=== PATIENT | female | born 1985 | race Caucasian/White ===

== ENCOUNTER 2018-05-18 09:27 | Emergency (ER) | payer OTHER, SELFPAY ==
[2018-05-18 09:29] VITALS: BP 165/112; PULSE 99; RESP 18; TEMP 36.2; O2SAT 100; BMI 33.5
--- NOTE | 2018-05-18 09:50 | RAD_ITS ---
STUDY: X-RAY CHEST REASON FOR EXAM: Female, 32 years old. Chest pain. TECHNIQUE: 1 view COMPARISON: Prior chest radiograph of August 24, 2005 FINDINGS: The lungs are clear and expanded. There is no demonstrated pleural abnormality. Normal size heart. Normal mediastinum and marli. Normal visualized pulmonary arteries. Normal visualized aortic arch and descending thoracic aorta. Normal visualized thoracic spine. Normal visualized ribs, clavicles, and shoulders. There is no demonstrated abnormality of the visualized soft tissue structures of the upper abdomen. RAD/Chest 1 View (Portable) IMPRESSION: Normal x-ray examination of the chest. Electronically Signed: Aparna Zapata MD at 16:34 EDT , Service support ,
--- NOTE | 2018-05-18 09:51 | EKG12_ITS ---
Test Reason : BACK PAIN Blood Pressure : / mmHG Vent. Rate : 095 BPM Atrial Rate : 095 BPM P-R Int : 148 ms QRS Dur : 084 ms QT Int : 354 ms P-R-T Axes : 047 025 031 degrees QTc Int : 444 ms Normal sinus rhythm Low voltage QRS (limb leads) Confirmed by KARLA BUCHANAN, MANUEL ([id number]), publication editor SHANNAN DUVAL ([id number]) on 05/20/2018 1:22:45 PM Referred By: HELGA Confirmed By:MANUEL ACOSTA MD
--- NOTE | 2018-05-18 09:56 | ED.DCSUM_ITS ---
- ER Visit Summary Date of Service: 05/18/18 Chief Complaint: Upper back pain History of Present Illness: The patient is a [address] Keane. She reports that she has had episodes of left upper back pain for approximately 2 years ago. States that she had gone to physical therapy and had done quite well until approximately 2 months ago when she began having problems again. She reports the pain became much worse yesterday. It is a sharp pain just medial to her left scapula that is 10 out of 10 severity at worst an 8 out of 10 currently. States the pain radiates up into her neck and into her chest. It is worsened by putting pressure on the area. Leaning backward laying down. Is also worsened by deep breaths. She is taking naproxen and Flexeril without relief. She denies any numbness or weakness. She has no pain with movement of her shoulder. She denies any recent trauma. No fall, MVA, or change in activity. Physical Examination: Vitals: Stable. Afebrile. General: Well-nourished and well-developed. Head: Normocephalic atraumatic. Neck: Supple, no lymphadenopathy. No JVD. Nontender. Cardiovascular: Regular rate and rhythm. No murmurs. Respiratory: No respiratory distress. Clear to auscultation bilaterally. Abdominal: Soft, nontender, nondistended, normal bowel sounds. No guarding, rebound, or peritoneal signs. Back: No vertebral tenderness. Moderate tenderness palpation to the rhomboid muscles on the left.. Extremities: Nontender, no edema. Skin: Normal color, no rash. Neurologic: Alert and oriented ?3. Cranial nerves II through XII are intact. Normal strength and sensation. Psych: Normal affect. Test Results: EKG is sinus at [address] changes. CBC is more for a white count of 4.2, H&H of 11.2 and 35.3. Chem-7 is normal. Troponin is negative. D-dimer is negative. Parents test is negative. Chest x-ray shows no acute disease. Emergency Department Course and Treatment: Patient had an IV placed. She was given morphine, Toradol, and Zofran IV. She is resting comfortably. Treatment Plan: An OAR[facility] report was obtained which was negative. Patient will be discharged with naproxen, [place], and Flexeril. Instructed to follow-up her primary care physician in 3-5 days if not improving. Return to the emergency department for any worsening symptoms. Disposition: To home in improved and stable condition. Impression: 1. Upper back pain. 2. Atypical chest pain. This note was generated with [employer] dictation software. It may contain incorrect words, spelling, and punctuation that were not noted in review of the chart prior to signing ED Disposition - Plan for ED Patient: Chief Complaint: Back Instructions: ED Neck Back Pain General Prescriptions: Hydrocodone Bitart/Apap 5-325 [[place] 5MG-325MG] 1 tablet PO Q4H PRN PRN 2 Days #10 tablet PRN Reason: Pain Naproxen [Naprosyn] 500 mg PO BID #14 tablet Cyclobenzaprine [Flexeril] 10 mg PO TID PRN #20 tablet PRN Reason: Muscle Spasm Referrals: Chicho Keane MD [Primary Care Provider] - 3-5 Days if not improving
[2018-05-18] MEDS: Morphine 4 MG/ML Syringe IV (10:11)
[2018-05-18] MEDS: 0.9% Normal Saline 1,000 ML 1000 ML IV (10:11)
[2018-05-18] MEDS: Ondansetron 4 MG/2 ML Vial IV (10:11)
[2018-05-18] MEDS: Ketorolac 30 MG/ML Syringe IV (10:11)
[2018-05-18 10:14] VITALS: BP 146/100; PULSE 94; RESP 18; O2SAT 97
[2018-05-18 10:23] LABS: Absolute Lymphocyte Count 1.41 X10^3/ul (0.83-4.51); Absolute Neutrophil Count 2.3 X10^3/uL (2.0-7.7); Basophil# 0.04 X10^3/uL; Basophil% 0.9 % (0-1); Eosinophil# 0.13 X10^3/uL; Eosinophils% 3.1 % (0-5); Hematocrit 35.3 % (37-47); Hemoglobin 11.2 g/dl (12.0-15.0); Lymphocyte # 1.41 X10^3/ul (4.0); Lymphocyte % 33.3 % (19-41); Mean Corp Hgb Conc 31.7 g/gl (32-36); Mean Corpuscular Volume 78.8 fL (81-99); Mean Platelet Vol. 9.2 fl (6.2-12.0); Monocyte# 0.34 X10^3/uL; Neutrophil % 54.5 % (47-70); Platelet Count 271 K/mm3 (150-450); RBC Distribution Width CV 15.8 % (11.6-14.6); RBC Distribution Width SD 44.6 fl (35.1-43.9); Red Blood Count 4.48 M/mm3 (4.2-5.4); White Blood Count 4.2 K/mm3 (4.4-11.0)
[2018-05-18 10:24] LABS: POSITIVE COUNT NO; POSITIVE DIFFERENTIAL NO; POSITIVE MORPHOLOGY NO
[2018-05-18 10:34] LABS: D-Dimer Quantitative (DVT/PE) < 0.27 FEU/ug/m (0.27-0.49)
[2018-05-18 10:43] LABS: Anion Gap 10 (5-15); BUN 13 mg/dL (7-18); BUN/Creat Ratio 14.6 RATIO (10-20); Calcium,Total 8.5 mg/dL (8.5-10.1); Chloride 106 mmol/L (98-107); Creatinine, Serum 0.89 mg/dL (0.55-1.02); EST Glomerular Filtration Rate 77 mL/min (>60); Est Glom Filt Rate - Afr Amer 93 mL/min (>60); Estimated Creatinine Clearance 76.91 ml/min; Glucose 98 mg/dL (74-106); Potassium 3.9 mmol/L (3.5-5.1); Sodium Level 141 mmol/L (136-145)
[2018-05-18 10:46] LABS: Pregnancy, Serum, hCG Quali. NEGATIVE Negative (0-9 Nonpreg)
[2018-05-18 11:08] VITALS: BP 148/97; PULSE 87; RESP 18; O2SAT 99
== END 2018-05-18 11:10 | disposition home or self-care (01) ==
LOC: ED 09:57
PROVIDERS: Emergency Provider Emergency Medicine; Family Provider Family Medicine; PCP Family Medicine
DX: M54.9 Dorsalgia, unspecified (principal); R07.89 Other chest pain; E28.2 Polycystic ovarian syndrome; Z87.442 Personal history of urinary calculi
CPT/HCPCS: 71045; 80048; 84484; 84703; 85025; 85379; 93005; 96361; 96374; 96375; 99284; J7030; A4216; J2405

== ENCOUNTER → 2018-05-31 17:53 | Outpatient (CLI) | payer OTHER, SELFPAY ==
--- NOTE | 2018-05-31 18:15 | MRI_ITS ---
STUDY: MRI CERVICAL SPINE WITHOUT CONTRAST REASON FOR EXAM: Female, 32 years old. Left shoulder and arm pain TECHNIQUE: Standardized fat and water weighted pulse sequences were obtained in the sagittal and axial planes. COMPARISON: None FINDINGS: There is no tonsillar ectopia. This a normal cervicomedullary junction. The cervical spinal cord is of normal morphology (except at the C6-C7 level) and signal intensity with no myelomalacia or contusion. The cervical spine itself shows normal alignment and curvature with no acute fractures or dislocations and no abnormal marrow infiltrative processes. There is a normal craniovertebral junction and an intact tectorial membrane. C2-3: Normal endplates. Normal disc height, signal and morphology. Normal central canal and intervertebral neural foramina. C3-4: Normal endplates. Normal disc height, signal and morphology. Normal central canal and intervertebral neural foramina. C4-5: Normal endplates. Normal disc height, signal and morphology. Normal central canal and intervertebral neural foramina. C5-6: Normal endplates. Normal disc height, signal and morphology. Normal central canal and intervertebral neural foramina. C6-7: There is a large 7.7 x 4.7 mm left paracentral disc extrusion with an impressive impingement on the left anterior funiculus of the cord and subsequent narrowing of the left intervertebral foramen with compression on the exiting left C7 nerve root.. C7-T1: Normal endplates. Normal disc height, signal and morphology. Normal central canal and intervertebral neural foramina. MRI/Spine Cervical (Routine) IMPRESSION: A large 7.7 x 4.7 mm left paracentral disc extrusion at the C6-C7 level with an impressive impingement on the left anterior funiculus of the cord and impingement on the exiting left C7 nerve root Electronically Signed: Mark Brewer MD at 0:57 EST Tel , Service support ,
== END ==
PROVIDERS: Family Provider Family Medicine; PCP Family Medicine; Referring Provider Family Medicine; Visit Provider Family Medicine
DX: M54.12 Radiculopathy, cervical region (principal)
CPT/HCPCS: 72141

== ENCOUNTER 2018-06-15 09:24 | Emergency (ER) | payer OTHER, SELFPAY ==
[2018-06-15 09:25] VITALS: BP 166/116; PULSE 106; RESP 22; TEMP 36.6; O2SAT 99; BMI 34.0
--- NOTE | 2018-06-15 09:47 | ED.VISSUMM ---
- ER Visit Summary Date of Service: 06/15/18 Chief Complaint: Neck pain History of Present Illness: The patient is a 32 F with known herniated disks in her cervical region presented with left-sided neck pain radiating down her left upper extremity into her hand worse for the past few days. She has an appointment with a neurosurgeon on June 24 but was supposed to go last Wednesday. Her appointment had to be canceled by the office. She denies any new or concerning features. Denies any falls or direct trauma. She has occasional paresthesias in her left upper extremity but no weakness. No fever or chills. Current severity of her symptoms is mild. It is worse when looking left. Physical Examination: She does appear uncomfortable. No fever. She has paraspinal cervical tenderness on the left but no midline tenderness, erythema, or fluctuance. There is normal strength and sensation in both upper extremities. Test Results: Emergency Department Course and Treatment: She did have a recent MRI performed. I do not feel she needs an emergent imaging. She has no evidence of paraspinal or epidural abscess. No midline bony tenderness, erythema, or fluctuance. She has normal strength. Treatment Plan: I will treat her with IM Toradol and Norflex here. She was prescribed a Medrol Dosepak, Mobic, and Zanaflex as well as a few Percocet to use at nighttime. She will keep her neurosurgery appointment and come back if worse. Disposition: Home stable Impression: Cervical radiculopathy, subsequent visit This note was generated with [employer] dictation software. It may contain incorrect words, spelling, and punctuation that were not noted in review of the chart prior to signing ED Disposition - Plan for ED Patient: Chief Complaint: Back Instructions: ED Cervical Radiculopathy Prescriptions: Oxycodone HCl/Acetaminophen [Percocet 5/325] 1 tablet PO Q6H PRN PRN 3 Days #12 tablet PRN Reason: Pain Meloxicam [Mobic] 15 mg PO DAILY #30 tablet MethylPREDNISolone DosePak [Medrol DosePak] 4 mg PO UD #1 box Tizanidine HCl [Zanaflex] 4 mg PO [id number] #30 tablet Referrals: Chicho Keane MD [Primary Care Provider] -
--- NOTE | 2018-06-15 09:52 | ED.DCSUM_ITS ---
- ER Visit Summary Date of Service: 06/15/18 Chief Complaint: Neck pain History of Present Illness: The patient is a 32 F with known herniated disks in her cervical region presented with left-sided neck pain radiating down her left upper extremity into her hand worse for the past few days. She has an appoi ntment with a neurosurgeon on June 24 but was supposed to go last Wednesday. Her appointment had to be canceled by the office. She denies any new or concerning features. Denies any falls or direct trauma. She has occasional paresthesias in her left upper extremity but no weakness. No fever or chills. Current severity of her symptoms is mild. It is worse when looking left. Physical Examination: She does appear uncomfortable. No fever. She has paraspinal cervical tenderness on the left but no midline tenderness, erythema, or fluctuance. There is normal strength and sensation in both upper extremities. Test Results: Emergency Department Course and Treatment: She did have a recent MRI performed. I do not feel she needs an emergent imaging. She has no evidence of paraspinal or epidural abscess. No midline bony tenderness, erythema, or fluctuance. She has normal strength. Treatment Plan: I will treat her with IM Toradol and Norflex here. She was prescribed a Medrol Dosepak, Mobic, and Zanaflex as well as a few Percocet to use at nighttime. She will keep her neurosurgery appointment and come back if worse. Disposition: Home stable Impression: Cervical radiculopathy, subsequent visit This note was generated with [employer] dictation software. It may contain incorrect words, spelling, and punctuation that were not noted in review of the chart prior to signing ED Disposition - Plan for ED Patient: Chief Complaint: Back Instructions: ED Cervical Radiculopathy Prescriptions: Oxycodone HCl/Acetaminophen [Percocet 5/325] 1 tablet PO Q6H PRN PRN 3 Days #12 tablet PRN Reason: Pain Meloxicam [Mobic] 15 mg PO DAILY #30 tablet MethylPREDNISolone DosePak [Medrol DosePak] 4 mg PO UD #1 box Tizanidine HCl [Zanaflex] 4 mg PO [id number] #30 tablet Referrals: Chicho Keane MD [Primary Care Provider] -
[2018-06-15] MEDS: Orphenadrine 60 MG/2 ML Ampul IM (10:07)
[2018-06-15] MEDS: Ketorolac 60 MG/2 ML Vial IM (10:07)
[2018-06-15 10:29] VITALS: BP 123/74; PULSE 61; RESP 15; O2SAT 98
== END 2018-06-15 10:33 | disposition home or self-care (01) ==
PROVIDERS: Emergency Provider Emergency Medicine; Family Provider Family Medicine; PCP Family Medicine
DX: M54.12 Radiculopathy, cervical region (principal)
CPT/HCPCS: 96372; 99282

== ENCOUNTER → 2018-08-02 08:16 | Outpatient (CLI) | payer OTHER, SELFPAY ==
[2018-08-02 08:14] VITALS: BMI 34.0
--- NOTE | 2018-08-02 08:18 | RAD_ITS ---
HISTORY: PBack Pain COMPARISON: None FINDINGS: XR cervical spine with lateral flexion and extension views for total 6 views With flexion and extension, adequate cervical spine mobility. No spondylolisthesis or abnormal motion. No instability seen. Cervical vertebra show normal height and alignment. C6-7 mild disc space narrowing accompanied by mild anterior endplate spurring. The remaining cervical disc space heights are preserved. Intact posterior elements. The C1-C2 relationship appears normal. Neuroforamina are patent. RAD/Cerv Spine 4 or 5 Views IMPRESSION: 1. C6-7 early degenerative disc disease and spondylosis. 2. Normal cervical vertebral alignment. No instability or abnormal motion. at [id number] Reported and signed by: Wilian Schulz MD Electronically Signed: Wilian Schulz, at 4:47 EST Tel , Service support ,
== END ==
PROVIDERS: Family Provider Family Medicine; PCP Family Medicine; Referring Provider Orthopaedic Surgery; Visit Provider Orthopaedic Surgery
DX: M54.12 Radiculopathy, cervical region (principal)
CPT/HCPCS: 72050

== ENCOUNTER → 2018-08-11 16:13 | Outpatient (CLI) | payer OTHER, SELFPAY ==
[2018-08-09 08:20] VITALS: BMI 33.6
--- NOTE | 2018-08-11 16:26 | MRI_ITS ---
STUDY: MRI CERVICAL SPINE WITHOUT CONTRAST REASON FOR EXAM: Female, 33 years old. Pre-op evaluation of the cervical spine. TECHNIQUE: Standardized fat and water weighted pulse sequences were obtained in the sagittal and axial planes. COMPARISON: Radiographs of cervical spine dated August 02, 2018. FINDINGS: Normal foramen magnum and brainstem-cervical cord junction. Normal craniovertebral junction. Normal anterior atlantoaxial articulation. Normal odontoid process. There is straightening of the normal cervical lordosis. Normal vertebral bodies and posterior osseous elements. C2-3: Normal endplates. Normal disc height, signal and morphology. Normal central canal and intervertebral neural foramina. C3-4: Normal endplates. Normal disc height, signal and morphology. Normal central canal and intervertebral neural foramina. C4-5: Normal endplates. Normal disc height, signal and morphology. Normal central canal and intervertebral neural foramina. C5-6: Normal endplates. Normal disc height, signal and morphology. Normal central canal and intervertebral neural foramina. C6-7: There is a large focal left foraminal disc extrusion which severely narrows the left neural foramen and impinges a left-sided nerve root at this level. The right neural foramen is patent. There is also mild central acquired canal stenosis with mild impingement of the left side of the cervical spinal cord at this level. C7-T1: Normal endplates. Normal disc height, signal and morphology. Normal central canal and intervertebral neural foramina. The cervical cord has generally normal morphology and signal characteristics otherwise. There is mild deformity of left sided cervical spinal cord at C6-7 related to the large left-sided disc extrusion. There is no demonstrated cervical cord syrinx cavity. Normal visualized soft tissue structures. MRI/Spine Cervical (Routine) IMPRESSION: Large disc extrusion at C6-7 with probable impingement of the left sided exiting nerve root at this level and possible impingement of the cervical spinal cord. Electronically Signed: Margie Bernabe MD at 3:14 EST , Service support ,
--- OUTSIDE RECORDS SUMMARY | 2018-10-16 11:39 | XMS RPT_ITS ---
:1985 Author Organization OHIP Support Name Relationship Address Phone TAPANLEONARD FERRER Unavailable [address] + [place] [address] [facility] Unavailable [address] + [place] [address] SILVESTRE BLOUNT/ARCHIE Unavailable [address] + [place] [address] LEONARD DAVIDSON Unavailable [address] + [place] [address] [facility] Unavailable [address] + [place] [address] SILVESTRE BLOUNT/ARCHIE Unavailable [address] + [place] [address] LEONARD DAVIDSON Unavailable [address] + [place] [address] [facility] Unavailable [address] + [place] [address] SILVESTRE BLOUNT/ARCHIE Unavailable [address] + [place] [address] LEONARD DAVIDSON Unavailable [address] + [place] [address] [facility] Unavailable [address] + [place] [address] SILVESTRE BLOUNT/ARCHIE Unavailable [address] + [place] [address] LEONARD DAVIDSON Unavailable [address] + [place] [address] [facility] Unavailable [address] + [place] [address] SILVESTRE BLOUNT/ARCHIE Unavailable [address] + [place] [address] TapanJason ferrers Unavailable Unavailable + TAPANJASON FERRERS Unavailable [address] + [place] [address] [facility] Unavailable [address] + [place] [address] SILVESTRE BLOUNT/ARCHIE Unavailable [address] + [place] [address] TAPAN, VALLE Unavailable [address] + [place] [address] WC Unavailable [address] + [place] [address] JOSE ALEJANDRO, SILVESTRE/ARCHIE Unavailable [address] + [place] [address] TapanJason ferrers Unavailable Unavailable + TAPAN VALLE Unavailable Unavailable + TAPAN VALLE Unavailable Unavailable + TAPAN, VALLE Unavailable [address] + [place] [address] [facility] Unavailable [address] + [place] [address] JOSE ALEJANDRO, SILVESTRE/ARCHIE Unavailable [address] + [place] [address] JASON DAVIDSONS Unavailable [address] + [place] [address] WC Unavailable [address] + [place] [address] JOSE ALEJANDRO, SILVESTRE/ARCHIE Unavailable [address] + [place] [address] TAPAN, VALLE Unavailable [address] + [place] [address] WC Unavailable [address] + [place] [address] JOSE ALEJANDRO, SILVESTRE/ARCHIE Unavailable [address] + [place] [address] Care Team Providers Name Role Phone Surya Casas Attending Unavailable PROVIDER, UNKNOWN Referring Unavailable Chicho Wilson Primary Care Unavailable Surya Casas Attending Unavailable PROVIDER, UNKNOWN Referring Unavailable Kontak, Chicho Primary Care Unavailable Rodriguez, Pam Attending Unavailable Kontak, Chicho Referring Unavailable Rodriguez, Pam Attending Unavailable Rodriguez, Pam Referring Unavailable Kontak, Chicho Primary Care Unavailable Rodriguez, Pam Referring Unavailable Kontak, Chicho Primary Care Unavailable Laura Ken, SUPERVISOR FIREARMS-C Consulting Unavailable Koram, Kayla Laurence Attending Unavailable Rodriguez, Pam Attending Unavailable Rodriguez, Pam Referring Unavailable Kontak, Chicho Primary Care Unavailable Rodriguez, Pam Attending Unavailable Rodriguez, Pam Referring Unavailable Kontak, Chicho Primary Care Unavailable Rodriguez, Pam Consulting Unavailable Laura Ken SUPERVISOR FIREARMS-C Attending Unavailable Rodriguez, Pam Referring Unavailable Kontak, Chicho Primary Care Unavailable Laura Ken, SUPERVISOR FIREARMS-C Consulting Unavailable Koram, Kayla Laurence Consulting Unavailable Koram, Kayla Laurence Attending Unavailable Rodriguez, Pam Referring Unavailable Kontak, Chicho Primary Care Unavailable Laura Ken SUPERVISOR FIREAR[employer]-C Consulting Unavailable Koram, Kayla Laurence Consulting Unavailable Kontak, Chicho Primary Care Unavailable Mic Mcmahan Attending Unavailable Kontak, Chicho Attending Unavailable Kontak, Chicho Referring Unavailable Kontak, Chicho Primary Care Unavailable Kontak, Chicho Primary Care Unavailable Fer Fan Attending Unavailable DELMI WISEMAN (NURSE CHEMICAL DEPENDENCY) Attending Unavailable GUALBERTO WILSON Attending Unavailable JULISSA WHEELER (SUPERVISOR FIREARMS) Referring Unavailable GUALBERTO WILSON Attending Unavailable GUALBERTO WILSON Referring Unavailable AMILCARTAGUALBERTO Mendoza Referring Unavailable EILEEN Moreno Attending Unavailable STEVE GAUTAM, GUALBERTO HOANG Primary Care Unavailable PROBLEMS PROBLEMS DATE TYPE CONDITION / CODE ATTENDING STATUS SOURCE 08/20/2018 Unknown Z98.1 - Arthrodesis Koram, Kayla Laurence Active [place] status / [facility] Z98.1(ICD-10) Hospital Repository 08/02/2018 Unknown M54.12 - Rodriguez, Pam Active [place] Radiculopathy, [facility] cervical region / Hospital M54.12(ICD-10) Repository 08/02/2018 Unknown M54.2 - Cervicalgia Rodriguez, Pam Active [place] / M54.2(ICD-10) [facility] Hospital Repository 07/28/2018 Admitting Encounter for other Surya Casas [facility] preprocedural System examination / Repository Z01.818(ICD-10) 07/28/2018 Admitting Radiculopathy, Surya Casas [facility] cervical region / System M54.12(ICD-10) Repository 07/28/2018 Admitting Other cervical disc Surya Casas [facility] disorders, System unspecified Repository cervical region / M50.80(ICD-10) 07/28/2018 Admitting Elevated Surya Casas [facility] blood-pressure System reading, w/o Repository diagnosis of htn / R03.0(ICD-10) 07/28/2018 Admitting Other obesity / Surya Casas [facility] Diagnosis E66.8(ICD-10) System Repository 07/28/2018 Admitting Body mass index Surya Casas [facility] (BMI) 33.0-33.9, System adult / Repository Z68.33(ICD-10) 07/07/2018 Admitting Encounter for EILEEN Moreno Active [employer] Diagnosis general adult [facility] medical examination Repository without abnormal findings / Z00.00(ICD-10) 05/18/2018 Unknown M54.9 - Dorsalgia, Mic Mcmahan [facility] unspecified / Community M54.9(ICD-10) Hospital Repository PROCEDURES PROCEDURES No Procedure Records FoundRESULTS RESULTS DISCHARGE SUMMARY Observed: 08/17/2018 Status: F Source: [facility] 1:53 PM [facility] REPOSITORY [facility] Medical Records Department [address] [place] [address] Discharge Summary 08/17/18 1011 MR#: [id number] Acct: [id number] Name: TUYET DAVIDSON Rep #: [id number] : 1985 33 From: Kayla Colorado MD PCP: Chicho Wilson MD Status: DEP [facility] Y Location: [facility] Discharge Date and Diagnosis Date of Admission: 08/16/18 Date of Discharge: 08/17/18 - Secondary Discharge Diagnosis Chronic Problems Cervical radiculopathy at C7 (Chronic) HTN (hypertension) (Chronic) Hospital Course and Treatment Imaging Results: Diagnostic Data Cervical Spine X-Ray 08/16/18 14:00 IMPRESSION: A prosthetic disc spacer is seen at the C6-C7 level. Electronically Signed: Jeronimo Sierra MD at 14:47 EST Tel [phone], Service support , ADDENDUM: 08/17/18 0823 Operations: - - cervical TDR C6-7 Procedures: None Summary of Care Provided: Patient is a 33-year-old female who was admitted status post C5 C7 discectomy, decompression and arthroplasty on 08/16/2018. Patient had presented to spine surgeon was significant neck pain and left C7 radiculopathy and weakness. Preoperative imaging demonstrated a large left C6-C7 disc extrusion with severe foraminal stenosis. Subsequently had surgery which was uneventful. He subsequently complained of severe pain at surgical site and so was admitted for overnight monitoring and pain control. Patient remained stable and pain subsequently improved significantly. She was discharged home on 08/17/2018. She is to follow-up with her PCP and with spine surgeon Dr. Rodriguez in 3 weeks. Patient seen and examined prior to discharge. She complained of some paresthesia in her left hand which is not new. Pain is well controlled. She denies any fever or chills, cough or chest pain, shortness of breath abdominal pain, diarrhea vomiting. Review of systems otherwise negative. Labs and vitals reviewed. Home medications reviewed and reconciled. Given a prescription for pain medication (oxycodone/acetaminophen) by spine surgeon Dr Rodriguez- (percocet 5-325 mg) 2 prn 4x daily x 84 tablets. o/e: Vital Signs Height 5 ft 4 in Weight: 197 lb 12.074 oz Weight in Pounds 197.8 lbs Pulse Ox 100 General: Alert, Oriented x3, Cooperative, No apparent distress HEENT: Atraumatic, PERRLA, EOMI, Normocephalic Neck: Supple, No JVD, Negative Carotid Bruits; in cervical soft neck collar Lungs: Clear to auscultation, Normal air movement Cardiovascular: Regular rate, Regular Rhythm, Normal S1, Normal S2, No murmurs Abdomen: Bowel Sounds Present, Soft, Non Tender, Non-Distended Extremities: No clubbing, No cyanosis, No edema, Capillary Refill Less than 3 Seconds Skin: No rashes, No breakdown Musculoskeletal: No Tenderness to Palpation of Joints or Extremities, Neurological: Cranial nerves II-XII grossly intact, Neuro grossly intact, - - Left hand radiculopathy Psych/Mental Status: Normal Affect, Appropriate - Physical Exam Vital Signs Temp Pulse Resp BP Pulse Ox 98.5 F 75 16 119/72 100 08/17/18 08:00 08/17/18 08:00 08/17/18 08:00 08/17/18 08:00 08/17/18 08:00 Oxygen Delivery Method Room Air Weight: 197 lb 12.074 oz Body Mass Index (BMI) 33.9 Intake and Output for Last 24 Hours Intake Total 3200 / 3200 920 / 920 Balance 3200 / 3200 920 / 920 Discharge Diet: Low fat/ Low Cholesterol Discharge Activity: May not drive while taking narcotic pain medications., - - no overhead lifting or lifting greater than 5 pounds. sitting up at 30 degrees at time. May shower in (days): 5 Weight Bearing Status: Weight bearing as tolerated Call your doctor if your incision/area has: Continuous Slow Oozing, Sudden Increased Bleeding, Increased Pain/ Swelling, Increased Redness, Foul Smelling Discharge, Swelling at the incision site Call your doctor if you observe: Fever of 101 or Higher, Numbness or Tingling, Change in Color, Inability to urinate, Shortness of breath, Dizziness, Fainting spells, Chest pain, Increased palpitations (irregular heartbeat), Calf discomfort, Uncontrolled pain Suture Line Care: Avoid Pulling/Pushing, Avoid Pinching/Bending Change Dressing in (Days):: 2 Remove Dressing in (days):: 2 Cleanse incision/area with: Do not get Incision Wet - for 5 days after surgery Home Medications: Medications to take at Discharge Fluticasone 0.05% [Flonase Nasal [place]] 1 spray NASAL DAILY 08/09/18 Lisinopril [Prinivil] 5 mg PO DAILY 08/09/18 Tizanidine HCl [Zanaflex] 4 mg PO [id number] 08/09/18 Oxycodone HCl/Acetaminophen [Percocet 5-325 mg Tablet] 2 ea PO 4X/DAY PRN PRN 7 Days #84 tab MDD 12 08/16/18 Following Prescrptions Were Given to Patient: Oxycodone HCl/Acetaminophen [Percocet 5-325 mg Tablet] 2 ea PO 4X/DAY PRN PRN 7 Days #84 tab MDD 12 PRN Reason: Pain Primary Care Physician: Chicho Wilson MD [Primary Care Provider] - Please follow up with your Primary Care Physician in: 2 weeks for wound check Please Follow Up With: Pam Rodriguez MD When: 3 weeks Disposition: Home Minutes spent on discharge:: 35 Patient Condition:: Stable Medical Necessity - Tobacco Use Smoking Status: Never smoker Meaningful Use Info Meaningful Use Diagnoses (Choose all that apply): None applicable Code Visit Inpatient E AND M: 32028 Disch Hosp 08/17/18 1353 <Electronically signed by Kayla Colorado MD> Date Kayla Colorado MD Cosigner Signature (if applicable): Date CC: Chicho Wilson MD; Kayla Colorado MD Signed HISTORY AND PHYSICAL Observed: 08/17/2018 Status: F Source: [facility] EXAM 1:40 PM [facility] REPOSITORY [facility] Medical Records Department [address] [place] [address] History and Physical 08/16/18 1747 MR#: [id number] Acct: [id number] Name: TUYET DAVIDSON Rep #: [id number] : 1985 33 From: Laura Ken SUPERVISOR FIREARMS-C PCP: Chicho Wilson MD Status: [facility] Y Location: [facility] <Laura Ken - Last Filed: 08/16/18 18:06> Problem List (1) HTN (hypertension) Status: Chronic (2) Cervical radiculopathy at C7 Status: Chronic History of Present Illness Date of Admission: 08/16/18 Chief Complaint: S/P C6-C7 discectomy, decompression, arthroplasty. The patient is a 33 year old F who underwent C6-C7 discectomy, decompression and arthroplasty 08/16/[address] Pam Rodriguez. Prior to surgery, patient had significant neck pain and left C7 radiculopathy and weakness. Preoperative imaging demonstrated a large left C6-C7 disc extrusion with severe foraminal stenosis. Surgery without complications. Patient complains of left scapula pain. Mild left hand numbness which was present prior to surgery. Her other past medical history includes hypertension which she states is a fairly recent diagnosis, suspected secondary to neck pain. She denies prior medical history. Past Medical History Past Medical History (Chronic Problems): Chronic Problems Cervical radiculopathy at C7 (Chronic) HTN (hypertension) (Chronic) Allergies Sulfa (Sulfonamide Antibiotics) Adverse Reaction (Verified 08/15/18 12:57) Low platelets sulfamethoxazole [From Bactrim] Adverse Reaction (Verified 08/15/18 12:57) Low platelets trimethoprim [From Bactrim] Adverse Reaction (Verified 08/15/18 12:57) Low platelets Home Medications: Ambulatory Orders Medication Instructions Recorded Fluticasone 0.05% [Flonase Nasal 1 spray NASAL DAILY 08/09/18 [place]] Lisinopril [Prinivil] 5 mg PO DAILY 08/09/18 Surgical History: - - C6-C7 discectomy, decompression, arthroplasty. Kidney stone removal. Psychiatric History: No pertinent psych hx WELDER TACK History: No pertinent WELDER TACK history Smoking Status: Never smoker Alcohol: None Drugs: None - *Family History Maternal History Items: - - Kidney stones Paternal History Items: High Cholesterol, Hypertension, - - Prostate cancer Review of Systems Constitutional: Denies: Chills, Fever, Weight Change HEENT: Denies: Head Aches, Sinus Congestion, Sinus Drainage Cardiovascular: Denies: Chest Pain, Palpitations Respiratory: Denies: Cough, Shortness of breath at rest, Sputum production Gastrointestinal: Denies: Abdominal Pain, Nausea, Vomiting Genitourinary: Denies: Dysuria Musculoskeletal: Reports: Neck Pain, - - Left scapular pain Skin: Denies: Rash, Wounds Neurological: Reports: - - Numbness, tingling left hand. Denies: Focal weakness Psychiatric: Denies: Anxiety, Depression, Homicidal Ideations, Suicidal Ideations Hematologic/ Lymphatic: Denies: Easy Bruising, Easy Bleeding VTE Information - Inpt Only VTE Present on Admission: No VTE Mechan Device Prophylaxis: SCD's VTE Pharm Prophylaxis ordered?: No - Physical Exam General: Alert, Oriented x3, Cooperative, No apparent distress HEENT: Atraumatic, PERRLA, EOMI, Normocephalic Neck: Supple, No JVD, Negative Carotid Bruits Lungs: Clear to auscultation, Normal air movement Cardiovascular: Regular rate, Regular Rhythm, Normal S1, Normal S2, No murmurs Abdomen: Bowel Sounds Present, Soft, Non Tender, Non-Distended Extremities: No clubbing, No cyanosis, No edema, Capillary Refill Less than 3 Seconds Skin: No rashes, No breakdown Musculoskeletal: No Tenderness to Palpation of Joints or Extremities, - - Soft neck collar present Neurological: Cranial nerves II-XII grossly intact, Neuro grossly intact, - - Left hand radiculopathy Psych/Mental Status: Normal Affect, Appropriate Vital Signs Temp Pulse Resp BP Pulse Ox 98.1 F 76 16 115/76 100 08/16/18 16:36 08/16/18 16:36 08/16/18 16:36 08/16/18 16:36 08/16/18 16:36 Oxygen Delivery Method Room Air Weight: 197 lb 12.074 oz Body Mass Index (BMI) 33.9 Intake and Output for Last 24 Hours Intake Total 3200 / 3200 Balance 3200 / 3200 Laboratory Tests Past 24 Hrs Urine Test Negative Assessment/Plan 1. Status post C6-C7 discectomy, decompression, arthroplasty secondary to left C6-C7 disc herniation with left C7 radiculopathy and weakness-surgery with Dr. Pam Rodriguez 08/16/18. Monitor overnight and manage pain. Continue pain regimen as prescribed by surgeon for discharge. Zofran as needed for nausea. Activity instructions per Dr. Rodriguez. 2. Hypertension-continue home lisinopril regimen. DVT prophylaxis-SCDs This patient was seen by SO Archer under the supervision of Dr. Colorado. <Kayla Colorado - Last Filed: 08/17/18 13:40> History of Present Illness The patient is a 33 year old F [] Past Medical History Allergies Sulfa (Sulfonamide Antibiotics) Adverse Reaction (Verified 08/15/18 12:57) Low platelets sulfamethoxazole [From Bactrim] Adverse Reaction (Verified 08/15/18 12:57) Low platelets trimethoprim [From Bactrim] Adverse Reaction (Verified 08/15/18 12:57) Low platelets - Physical Exam Vital Signs Temp Pulse Resp BP Pulse Ox 97.8 F 73 16 115/61 100 08/17/18 11:25 08/17/18 11:25 08/17/18 11:25 08/17/18 11:25 08/17/18 11:25 Oxygen Delivery Method Room Air Weight: 197 lb 12.074 oz Body Mass Index (BMI) 33.9 Intake and Output for Last 24 Hours Intake Total 3200 / 3200 1220 / 1220 Balance 3200 / 3200 1220 / 1220 Assessment/Plan Patient seen by Laura RIZZO under my supervision Patient was admitted after she had C6-C7 discectomy and decompression with arthroplasty for left C6-C7 disc herniation and left C7 myelopathy and weakness. She was admitted to be monitored overnight for pain control. Patient had no complaints and pain was well controlled with current pain meds. Plan is to continue pain regimen as prescribed by surgeon. For discharge on 08/17/2018 his pain is well controlled. SPine surgeon following. Patient was seen and examined. I agree with above note, assessment and plan by Laura RIZZO which I have reviewed and agree with. Code Visit OBSV E AND M: [id number] Initial observation care L2 08/16/18 1806 <Electronically signed by Laura RIZZO> Date Laura RIZZO 08/17/18 1340<Electronically signed by Kayla Colorado MD> Cosigner Signature: Date (if applicable) Kayla Colorado MD CC: SO Ken; Chicho Wilson MD; Kayla Colorado MD Signed DISCHARGE INSTRUCTION Observed: 08/17/2018 Status: F Source: [facility] 10[facility] Medical Records Department [address] [place] [address] Instructions for Home/Discharge Instructions 08/17/18 1008 MR#: [id number] Acct: [id number] Name: TUYET DAVIDSON Rep #: [id number] : 1985 33 From: Kayla Colorado MD PCP: Chicho Wilson MD Status: REG SDC - Discharge Diagnoses Current Active Problems: Current Active and Chronic Problems Cervical radiculopathy at C7 (Chronic) HTN (hypertension) (Chronic) You will use the following diet at home:: Cardiac Your food should be the consistency of: Regular Your liquids should be the consistency of: Regular/Thin Discharge Activity: May not drive while taking narcotic pain medications., - - no overhead lifting or lifting greater than 5 pounds. sitting up at 30 degrees at time. May shower in (days): 5 Weight Bearing Status: Weight bearing as tolerated Call your doctor if your incision/area has: Continuous Slow Oozing, Sudden Increased Bleeding, Increased Pain/ Swelling, Increased Redness, Foul Smelling Discharge, Swelling at the incision site Call your doctor if you observe: Fever of 101 or Higher, Numbness or Tingling, Change in Color, Inability to urinate, Shortness of breath, Dizziness, Fainting spells, Chest pain, Increased palpitations (irregular heartbeat), Calf discomfort, Uncontrolled pain Suture Line Care: Avoid Pulling/Pushing, Avoid Pinching/Bending Change Dressing in (Days):: 2 Remove Dressing in (days):: 2 Cleanse incision/area with: Do not get Incision Wet - for 5 days after surgery Allergies/Adverse Reactions: Allergies Sulfa (Sulfonamide Antibiotics) Adverse Reaction (Verified 08/15/18 12:57) Low platelets sulfamethoxazole [From Bactrim] Adverse Reaction (Verified 08/15/18 12:57) Low platelets trimethoprim [From Bactrim] Adverse Reaction (Verified 08/15/18 12:57) Low platelets Medications to take at Discharge Fluticasone 0.05% [Flonase Nasal [place]] 1 spray NASAL DAILY 08/09/18 Lisinopril [Prinivil] 5 mg PO DAILY 08/09/18 Tizanidine HCl [Zanaflex] 4 mg PO [id number] 08/09/18 Oxycodone HCl/Acetaminophen [Percocet 5-325 mg Tablet] 2 ea PO 4X/DAY PRN PRN 7 Days #84 tab MDD 12 08/16/18 The following prescriptions were given: Oxycodone HCl/Acetaminophen [Percocet 5-325 mg Tablet] 2 ea PO 4X/DAY PRN PRN 7 Days #84 tab MDD 12 PRN Reason: Pain Primary Care Physician: Chicho Wilson MD [Primary Care Provider] - Please follow up with your Primary Care Physician in: 2 weeks for wound check Test Results: Test results from this visit will be discussed in further detail at your follow-up appointment, if applicable. Please Follow Up With: Pam Rodriguez MD When: 3 weeks Proposed Discharge Date: 08/17/18 08/17/18 1010 <Electronically signed by Kayla Colorado MD> Date Kayla Colorado MD CC: SUPERVISOR FIREARMS-Melania Ken; Chicho Wilson MD Signed DISCHARGE SUMMARY Observed: 08/16/2018 Status: F Source: [place] 11:35 AM [facility] REPOSITORY [facility] Medical Records Department [address] [place], [place] [address] [address] Discharge Summary 08/16/18 1134 MR#: [id number] Acct: [id number] Name: TUYET DAVIDSON Rep #: [id number] : 1985 33 From: Pam Rodriguez MD PCP: Chicho Wilson MD Status: REG [facility] Y Location: [place] [address] Discharge Date and Diagnosis - Problem List Patient Problems: Active and Suspected Problems Cervical radiculopathy at C7 (Acute) Date of Admission: 08/16/18 Date of Discharge: 08/16/18 - Primary Discharge Diagnosis Active and Suspected Problems Cervical radiculopathy at C7 (Acute) Hospital Course and Treatment Imaging Results: 08/16/18 08:00 Cerv Spine 2 or 3 Views [RAD] Routine O.R. Fluoro for C-Arm [RAD] Routine 08/16/18 14:00 Xray Cervical [Cerv Spine 2 or 3 Views] [RAD] Urgent Operations: - - cervical TDR C6-7 Procedures: None Summary of Care Provided: The patient is a 33 year old F [] Patient Problems: Active and Suspected Problems Cervical radiculopathy at C7 (Acute) - Physical Exam Vital Signs Temp Pulse Resp BP Pulse Ox 98.4 F 86 14 129/80 H 100 08/16/18 07:20 08/16/18 07:20 08/16/18 07:20 08/16/18 07:20 08/16/18 07:20 Oxygen Delivery Method Room Air Weight: 197 lb 12.074 oz Body Mass Index (BMI) 33.9 Laboratory Tests Past 24 Hrs Urine Test Negative Discharge Activity: May not drive while taking narcotic pain medications., - - no overhead lifting or lifting greater than 5 pounds. sitting up at 30 degrees at time. May shower in (days): 5 Weight Bearing Status: Weight bearing as tolerated Call your doctor if your incision/area has: Continuous Slow Oozing, Sudden Increased Bleeding, Increased Pain/ Swelling, Increased Redness, Foul Smelling Discharge, Swelling at the incision site Call your doctor if you observe: Fever of 101 or Higher, Numbness or Tingling, Change in Color, Inability to urinate, Shortness of breath, Dizziness, Fainting spells, Chest pain, Increased palpitations (irregular heartbeat), Calf discomfort, Uncontrolled pain Suture Line Care: Avoid Pulling/Pushing, Avoid Pinching/Bending Change Dressing in (Days):: 2 Remove Dressing in (days):: 2 Cleanse incision/area with: Do not get Incision Wet - for 5 days after surgery Home Medications: Medications to take at Discharge Fluticasone 0.05% [Flonase Nasal [place]] 1 spray NASAL DAILY 08/09/18 Lisinopril [Prinivil] 5 mg PO DAILY 08/09/18 Tizanidine HCl [Zanaflex] 4 mg PO [id number] 08/09/18 Oxycodone HCl/Acetaminophen [Percocet 5-325 mg Tablet] 2 ea PO 4X/DAY PRN PRN 7 Days #84 tab MDD 12 08/16/18 Following Prescrptions Were Given to Patient: Oxycodone HCl/Acetaminophen [Percocet 5-325 mg Tablet] 2 ea PO 4X/DAY PRN PRN 7 Days #84 tab MDD 12 PRN Reason: Pain Primary Care Physician: Chicho Wilson MD [Primary Care Provider] - Please follow up with your Primary Care Physician in: 2 weeks for wound check Please Follow Up With: Pam Rodriguez MD When: 6 weeks Medical Necessity - Tobacco Use Smoking Status: Never smoker Meaningful Use Info Meaningful Use Diagnoses (Choose all that apply): None applicable 08/16/18 1135 <Electronically signed by Pam Rodriguez MD> Date Pam Rodriguez MD Cosigner Signature (if applicable): Date CC: Pam Rodriguez MD; Chicho Wilson MD Signed DISCHARGE INSTRUCTION Observed: 08/16/2018 Status: F Source: [place] 11:34 AM [facility] [place] REPOSITORY [facility] Medical Records Department [address] [place] [address] Instructions for Home/Discharge Instructions 08/16/18 1131 MR#: [id number] Acct: [id number] Name: TUYET DAVIDSON Rep #: [id number] : 1985 33 From: Pam Rodriguez MD PCP: Chicho Wilson MD Status: REG [facility] [place] - Discharge Diagnoses Current Active Problems: Current Active and Chronic Problems Cervical radiculopathy at C7 (Acute) Reason(s) for Visit for Discharge Instructions: s/p cervical total disc arthroplasty You will use the following diet at home:: Regular, Other - sitting up at ALL times when eating or drinking Your food should be the consistency of: Regular Discharge Activity: May not drive while taking narcotic pain medications., - - no overhead lifting or lifting greater than 5 pounds. sitting up at 30 degrees at time. May shower in (days): 5 Weight Bearing Status: Weight bearing as tolerated Lifting Restrictions: 5 Call your doctor if your incision/area has: Continuous Slow Oozing, Sudden Increased Bleeding, Increased Pain/ Swelling, Increased Redness, Foul Smelling Discharge, Swelling at the incision site Call your doctor if you observe: Fever of 101 or Higher, Numbness or Tingling, Change in Color, Inability to urinate, Shortness of breath, Dizziness, Fainting spells, Chest pain, Increased palpitations (irregular heartbeat), Calf discomfort, Uncontrolled pain Suture Line Care: Avoid Pulling/Pushing, Avoid Pinching/Bending Change Dressing in (Days):: 2 Remove Dressing in (days):: 2 Cleanse incision/area with: Do not get Incision Wet - for 5 days after surgery Allergies/Adverse Reactions: Allergies Sulfa (Sulfonamide Antibiotics) Adverse Reaction (Verified 08/15/18 12:57) Low platelets sulfamethoxazole [From Bactrim] Adverse Reaction (Verified 08/15/18 12:57) Low platelets trimethoprim [From Bactrim] Adverse Reaction (Verified 08/15/18 12:57) Low platelets Medications to take at Discharge Fluticasone 0.05% [Flonase Nasal [place]] 1 spray NASAL DAILY 08/09/18 Lisinopril [Prinivil] 5 mg PO DAILY 08/09/18 Tizanidine HCl [Zanaflex] 4 mg PO [id number] 08/09/18 Oxycodone HCl/Acetaminophen [Percocet 5-325 mg Tablet] 2 ea PO 4X/DAY PRN PRN 7 Days #84 tab MDD 12 08/16/18 The following prescriptions were given: Oxycodone HCl/Acetaminophen [Percocet 5-325 mg Tablet] 2 ea PO 4X/DAY PRN PRN 7 Days #84 tab MDD 12 PRN Reason: Pain Primary Care Physician: Chicho Wilson MD [Primary Care Provider] - Please follow up with your Primary Care Physician in: 2 weeks for wound check Test Results: Test results from this visit will be discussed in further detail at your follow-up appointment, if applicable. Please Follow Up With: Pam Rodriguez MD When: 6 weeks 08/16/18 1134 <Electronically signed by Pam Rodriguez MD> Date Pam Rodriguez MD CC: Chicho Wilson MD Signed OPERATIVE REPORT Observed: 08/16/2018 Status: F Source: [place] 11:31 AM [facility] [place] REPOSITORY [facility] Medical Records Department [address] [place] [address] Operative Report 08/16/18 1128 MR#: [id number] Acct: [id number] Name: TUYET DAVIDSON Rep #: [id number] : 1985 33 From: Pam Rodriguez MD PCP: Chicho Wilson MD Status: REG SDC Y Location: [place] [address] Problem List (1) Cervical radiculopathy at C7 Status: Acute Operative Report Date of Procedure: 08/16/18 Operative Report DATE PERFORMED: 08/16/2018 POSTOPERATIVE DIAGNOSIS: Left C6-C7 disk herniation with left C7 radiculopathy and weakness. POSTOPERATIVE DIAGNOSIS: Left C6-C7 disk herniation with left C7 radiculopathy and weakness. PROCEDURE: 1. C6-C7 diskectomy, decompression, arthroplasty. 2. Use of intraoperative fluoroscopy. 3. Use of intraoperative microscope. 4. Use of intraoperative neuromonitoring. SURGEON: Pam Rodriguez MD. WELL DRILLER: WILLIAM Hernandez. ANESTHESIA: General. ESTIMATED BLOOD LOSS: 25 cc. DRAINS: None. COMPLICATIONS: None. IMPLANTS: [employer] Mobi-C 13 x 17 x 5. INDICATIONS FOR PROCEDURE: Ms. Davidson is a 33-year-old female, who presents with neck pain and left C7 radiculopathy and weakness. Her preoperative imaging demonstrates a large left C6-C7 disk extrusion with severe foraminal stenosis. She has failed nonoperative treatment to include physical therapy and medications. Given the patient has been refractory to conservative treatment and is significantly affected in her quality of life, a C6-C7 anterior cervical diskectomy with arthroplasty was recommended. The patient agreed to comply with the treatment plan formulated. DESCRIPTION OF PROCEDURE: The patient was correctly identified as the Tuyet Davidson in the preoperative holding area. Consent was verified. All questions were answered. The risks and benefits of the procedure including but not limited to pain, infection, bleeding, failure of the operation, need for reoperation, implant failure, damage to nerve, tendon, vessel, muscle; risk of anesthesia, risk of durotomy, adjacent segment pathology, dysphagia, dysphonia, paralysis, continued pain, worsening symptoms, DVT/PE, and blindness were discussed in detail. The patient agreed to comply with the treatment plan formulated. The surgical site was marked. She was taken to the operating suite #1, where she underwent general anesthesia by anesthesia colleagues uneventfully. Preoperative antibiotics were initiated. KELLE hose and SCDs were placed on bilateral lower extremities for DVT prophylaxis. Neuromonitoring placed their leads. She was then placed supine on the radiolucent table. Her arms were padded and tucked at the side. Her neck was then gently extended. Her neck was then sterilely prepped and draped in the usual sterile fashion. A surgical pause was performed to confirm patient and procedure. The operation was then begun. An anterior left-sided skin incision was performed in a prominent skin fold overlying the C6-C7 disk space. Confirmed on x-ray. This was continued down to the subcutaneous tissue to the platysmal fascia. Full-thickness skin flaps were then developed and the platysma was then split in line with the direction of the fibers. The dissection proceeded down to the deep cervical fascia. The esophagus and trachea were mobilized medially and the carotid sheath was carefully protected laterally. The anterior aspect of the spine was carefully isolated. The prevertebral fascia was then incised and bluntly dissected off the anterior longitudinal ligament. The needle was placed within the C7 vertebral body. Intraoperative radiographs were obtained to confirm the operative level. Stuart pins were then placed in the C6 and C7 vertebral body. The longus coli were then gently retracted on both sides to expose the C6-C7 disk space. Self-retaining retractors were then placed. The microscope was then brought in for the remainder of the procedure. The anterior aspect of the C6-C7 disk was then incised with a 15 blade. The anterior was then incised with a 15 blade. The disk was excised in its entirety using a series of pituitary rongeurs and angled curettes back to the posterior longitudinal ligament and out to the uncovertebral joints bilaterally. The paddle distractor was then gently used to distract the disk space. High-speed bur was then used to bur down the uncinate processes bilaterally. There was a noted rent in the posterior longitudinal ligament on the left and multiple large fragments of disk extrusion were removed. A nerve hook was then used to palpate out the foramen bilaterally with no evidence of residual foraminal stenosis. The posterior longitudinal ligament was resected. The operative site was then thoroughly irrigated. Hemostasis obtained. The decompression was deemed complete. A series of trial sizers were then used to select a 13 x 17 x 5 mm Mobi-C implant. The implant was impacted into the C6-C7 disk space. Intraoperative fluoroscopy demonstrated excellent placement. The Stuart pins were then removed. The wound was then thoroughly irrigated. Hemostasis obtained. The platysma was then closed with 2-0 Vicryl interrupted fashion, followed by 3-0 Vicryl to close subcutaneous tissue, and a running 0 Monocryl to close the subcuticular tissue. Dermabond was then applied. A sterile dressing was then placed. The patient was placed in a soft collar, extubated and transferred to the postanesthesia care unit in stable condition. There were no complications. There were no changes in neuromonitoring. The patient tolerated the procedure well. Needle and sponge counts were correct at the end of the procedure. 08/16/18 1131 <Electronically signed by Pam Rodriguez MD> Date Pam Rodriguez MD CC: Pam Rodriguez MD; Chicho Wilson MD Signed CERV SPINE 2 OR 3 Observed: 08/16/2018 Status: F Source: [facility] 11:16 AM [facility] REPOSITORY [facility] Imaging Services [address] [place] [address] Cerv Spine 2 or 3 Views MR#: [id number] Acct: [id number] Name: TUYET DAVIDSON Rep #: [id number] : 1985 F 33 From: Jeronimo Sierra MD PCP: Chicho Wilson MD Status: [facility] Study: Cerv Spine 2 or 3 Views Date of Exam: 08/16/18 Exam# [id number] Ordering Dr: Pam Rodriguez MD ADDENDUM by Jeronimo Sierra MD on 08/17/18 at 0816 ADDENDUM This is an addendum report. The prosthetic disc is at the C6-C7 level. Electronically Signed: Jeronimo Sierra MD at 8:16 EST Tel [phone], Service support , 08/17/18815 Date cc: Pam Rodriguez MD; Chicho Wilson MD * Signed ADDENDUM by Jeronimo Sierra MD on 08/17/18 at 0816 RAD/Cerv Spine 2 or 3 Views 08/17/18822 Date cc: Pam Rodriguez MD; Chicho Wilson MD * Signed STUDY: X-RAY - CERVICAL SPINE REASON FOR EXAM: Female, 33 years old. Disc replacement. TECHNIQUE: AP and lateral view(s) of the cervical spine were obtained. COMPARISON: None FINDINGS: Normal anterior atlantoaxial articulation. Normal odontoid process. Normal cervical lordosis. Minimal anterior spondylosis at the C5-C6 level. A prosthetic disc spacer is seen at the C5-C6 level. Normal visualized intervertebral neuroforamina. The soft tissue structures are unremarkable. RAD/Cerv Spine 2 or 3 Views IMPRESSION: A prosthetic disc spacer is seen at the C6-C7 level. Electronically Signed: Jeronimo Sierra MD at 14:47 EST Tel [phone], Service support , CC: Pam Rodriguez MD; hCicho Wilson MD [employer] Labourer: Signed ,URINE Collected: 08/16/2018 Status: F Source: [place] 7:00 AM [facility] REPOSITORY Order Comment: Reason for Laboratory Test PRE-OP TYPE CODE TESTS RESULT OUT OF REFERENCE UNITS RANGE LAB L400.8000 Negative Normal HCGUQUAL Negative Result Comment: Very dilute urine specimens, as indicated by a low specific gravity, may not contain senior customer service representative levels of hCG. If is still suspected, a first morning urine specimen should be collected 48 hours later and tested. Performed By: #### L400.7600 #### [facility] [address] [facility] [place], [address] CERV SPINE 2 OR 3 Observed: 08/16/2018 Status: F Source: [place] VIEWS 12:06 AM [facility] REPOSITORY [facility] Imaging Services [address] [facility] [place] [address] Cerv Spine 2 or 3 Views MR#: [id number] Acct: [id number] Name: TUYET DAVIDSON Rep #: [id number] : 1985 F 33 From: Jeronimo Sierra MD PCP: Chicho Wilson MD Status: [facility] Study: Cerv Spine 2 or 3 Views Date of Exam: 08/16/18 Exam# [id number] Ordering Dr: Pam Rodriguez MD STUDY: X-RAY - CERVICAL SPINE REASON FOR EXAM: Female, 33 years old. Intraoperative imaging. TECHNIQUE: 3 view(s) and 8 images of the cervical spine were obtained. COMPARISON: None FINDINGS: Intraoperative imaging provided for C6-C7 prosthetic disc placement. RAD/Cerv Spine 2 or 3 Views IMPRESSION: Intraoperative imaging provided for prosthetic disc placement at the C6-C7 level. Electronically Signed: Jeronimo Sierra MD at 12:54 EST Tel [phone], Service support , CC: Pam Rodriguez MD; Chicho Wilson MD [employer] Labourer: Signed SPINE CERVICAL Observed: 08/11/2018 Status: F Source: [place] (ROUTINE) 4:26 PM [facility] REPOSITORY [facility] Imaging Services [address] [place] [address] Spine Cervical (Routine) MR#: [id number] Acct: [id number] Name: TUYET DAVIDSON Rep #: [id number] : 1985 F 33 From: Margie Duval MD PCP: Chicho Wilson MD Status: REG CLI Study: Spine Cervical (Routine) Date of Exam: 08/11/18 Exam# [id number] Ordering Dr: Pam Rodriguez MD STUDY: MRI CERVICAL SPINE WITHOUT CONTRAST REASON FOR EXAM: Female, 33 years old. Pre-op evaluation of the cervical spine. TECHNIQUE: Standardized fat and water weighted pulse sequences were obtained in the sagittal and axial planes. COMPARISON: Radiographs of cervical spine dated August 02, 2018. FINDINGS: Normal foramen magnum and brainstem-cervical cord junction. Normal craniovertebral junction. Normal anterior atlantoaxial articulation. Normal odontoid process. There is straightening of the normal cervical lordosis. Normal vertebral bodies and posterior osseous elements. C2-3: Normal endplates. Normal disc height, signal and morphology. Normal central canal and intervertebral neural foramina. C3-4: Normal endplates. Normal disc height, signal and morphology. Normal central canal and intervertebral neural foramina. C4-5: Normal endplates. Normal disc height, signal and morphology. Normal central canal and intervertebral neural foramina. C5-6: Normal endplates. Normal disc height, signal and morphology. Normal central canal and intervertebral neural foramina. C6-7: There is a large focal left foraminal disc extrusion which severely narrows the left neural foramen and impinges a left-sided nerve root at this level. The right neural foramen is patent. There is also mild central acquired canal stenosis with mild impingement of the left side of the cervical spinal cord at this level. C7-T1: Normal endplates. Normal disc height, signal and morphology. Normal central canal and intervertebral neural foramina. The cervical cord has generally normal morphology and signal characteristics otherwise. There is mild deformity of left sided cervical spinal cord at C6-7 related to the large left-sided disc extrusion. There is no demonstrated cervical cord syrinx cavity. Normal visualized soft tissue structures. MRI/Spine Cervical (Routine) IMPRESSION: Large disc extrusion at C6-7 with probable impingement of the left sided exiting nerve root at this level and possible impingement of the cervical spinal cord. Electronically Signed: Margie Duval MD at 3:14 EST , Service support , CC: Pam Rodriguez MD; Chicho Wilson MD [employer] Labourer: Signed CNNURSE Observed: 08/11/2018 Status: COMPLETED Source: [place] 3:15 PM [facility] REPOSITORY Nurse Visit (FAMPWS) TUYET DAVIDSON ([id number]) 1985 F Date Time Provider Department 08/11/18 3:15 PM [facility] During your visit today, we recorded the following information about you: Pulse Blood pressure 92/minute 122/78 Annalee Borges LPN 08/11/2018 2:59 PM Signed Manual Readin/78 Pulse: 92 Reason for blood pressure check - Last BP elevated and Medication adjustment Patient is: Taking medication as prescribed Yes Took medication today Yes If no, date medication last taken N/A Experiencing side effects No BP was elevated at last appt 1/10/19. Was started on Lisinopril 5mg daily. Impending back surgery on 08/16/2018. Tolerating medication well. Denies any chest pain, shortness of breath, dizziness, or headaches. Daily caffeine use. No personal history of tobacco use; no current exposure. Alert and oriented. Pt has been identified by name and birthdate: Yes Allergies reviewed: Yes Latex allergy: no. Medication - prescribed and OTC reviewed and updated: Yes Do you need any prescription refills prior to your next visit: No Health Maintenance: Reviewed and not up to date and provider notified Patient advised to continue with current medications and would be contacted with any further instructions after review by PCP. Annalee Borges LPN Referring Provider: GUALBERTO WILSON [[id number]] Allergies As of Date: 08/11/2018 Noted Allergy Reaction BACTRIM (SULFAMETHOXAZOLE) 06/07/2014 2 - Rash 14 - Other: See Comments Comments: thrombocytopenia SULFA (SULFONAMIDE ANTIBIOTICS) 08/11/2014 14 - Other: See Comments Comments: Thrombocytopenia. Date Reviewed: 08/04/2018 Reviewed by: Laura Haddad Ma - Fully Assessed Reason for Visit: Blood Pressure Check [195] Primary Visit Diagnosis:Elevated blood pressure reading without diagnosis of hypertension [R03.0] Prescriptions as of 08/11/2018 Sig: HYDROCODONE 5 MG-ACETAMINOPHE* LISINOPRIL 5 MG TABLET Take 1 tablet by mouth once d* MELOXICAM 15 MG TABLET Take 15 mg by mouth once jeremiah* TIZANIDINE 4 MG CAPSULE Take 4 mg by mouth as needed. FLUTICASONE 50 MCG/ACTUATION * Use 2 Sprays in each nostril * PROBIOTIC (S.BOULARDII) ORAL Take 1 tablet by mouth once d* VITAMIN,CALCIUM,MINE* Take 1 tablet by mouth once d* Problem List As Of Date 08/11/2018 Noted Resolved Acne [L70.9] INVALID FOR* PCOS (Polycystic Ovarian Syndrome) [E28.2] INVALID FOR* Infertility associated with anovulation [N97.0] INVALID FOR* Cervical radiculopathy [M54.12] INVALID FOR* Encounter Status:Closed by ANNALEE BORGES LPN on 08/11/18 PROGRESS Observed: 08/11/2018 Status: COMPLETED Source: [place] 2:54 PM [facility] REPOSITORY HNO ID: [id number] Author: Annalee Borges LPN Service: (none) Author Type: (none) Type: Progress Notes Filed: 08/11/2018 2:59 PM Note Text: Manual Readin/78 Pulse: 92 Reason for blood pressure check - Last BP elevated and Medication adjustment Patient is: Taking medication as prescribed Yes Took medication today Yes If no, date medication last taken N/A Experiencing side effects No BP was elevated at last appt 08/04/18. Was started on Lisinopril 5mg daily. Impending back surgery on 08/16/2018. Tolerating medication well. Denies any chest pain, shortness of breath, dizziness, or headaches. Daily caffeine use. No personal history of tobacco use; no current exposure. Alert and oriented. Pt has been identified by name and birthdate: Yes Allergies reviewed: Yes Latex allergy: no. Medication - prescribed and OTC reviewed and updated: Yes Do you need any prescription refills prior to your next visit: No Health Maintenance: Reviewed and not up to date and provider notified Patient advised to continue with current medications and would be contacted with any further instructions after review by PCP. Annalee Borges LPN CNPN Observed: 08/10/2018 Status: COMPLETED Source: [place] 12:00 AM [facility] REPOSITORY Telephone (FPWADS) TUYET DAVIDSON ([id number]) 1985 F Date Time Provider Department 08/10/18 GUALBERTO WILSONVAALVARO During your visit today, we recorded the following information about you: Laura Haddad Ma 08/10/2018 1:21 PM Addendum Received labs from [facility] 08/09/18. Will send to scanning once reviewed GLU 106 BUN 16 CREAT,SERUM 0.87 EST GFR 79 EST GFR AA 96 ECRCL 77.94 BUN/CRE 18.5 T PROT 7.2 ALB 3.7 GLOB 3.5 A/G 1.1 CA,TOTAL 8.1 AST 15 ALK P 85 ALT 22 T BILI 0.70 NA 137 POTASSIUM 3.7 CL 106 CO2 23.0 GAP 8 WBC 5.1 RBC 4.73 HGB 11.5 HCT 36.7 MCV 77.6 MCH 24.3 MCHC 31.3 RDW CV 16.2 RDW SD 44.5 PLT 277 MPV 10.2 NEUT% 59.2 LY% 29.4 MONO% 8.6 EO% 1.9 BASO% 0.200 ABSOLUTE NEUT 3.0 ABSOLUTE LYMPH 1.51 PROTIME 13.2 INR 1.0 PTT 30.4 BLOOD TYPE GEL A POS AB SCREEN GEL NEGATIVE Laura Haddad Ma Allergies As of Date: 08/10/2018 Noted Allergy Reaction BACTRIM (SULFAMETHOXAZOLE) 06/07/2014 2 - Rash 14 - Other: See Comments Comments: thrombocytopenia SULFA (SULFONAMIDE ANTIBIOTICS) 08/11/2014 14 - Other: See Comments Comments: Thrombocytopenia. Date Reviewed: 08/04/2018 Reviewed by: Laura Haddad Ma - Fully Assessed Reason for Visit: [facility] Labs 08/09/18 [Other] Prescriptions as of 08/10/2018 Sig: HYDROCODONE 5 MG-ACETAMINOPHE* LISINOPRIL 5 MG TABLET Take 1 tablet by mouth once d* MELOXICAM 15 MG TABLET Take 15 mg by mouth once jeremiah* TIZANIDINE 4 MG CAPSULE Take 4 mg by mouth as needed. FLUTICASONE 50 MCG/ACTUATION * Use 2 Sprays in each nostril * PROBIOTIC (S.BOULARDII) ORAL Take 1 tablet by mouth once d* VITAMIN,CALCIUM,MINE* Take 1 tablet by mouth once d* Problem List As Of Date 08/10/2018 Noted Resolved Acne [L70.9] INVALID FOR* PCOS (Polycystic Ovarian Syndrome) [E28.2] INVALID FOR* Infertility associated with anovulation [N97.0] INVALID FOR* Cervical radiculopathy [M54.12] INVALID FOR* Encounter Status:Closed by LAURA HADDAD MA on 08/10/18 URINALYSIS, ROUTINE Collected: 08/09/2018 Status: F Source: [place] ([place]) 8:38 AM [facility] REPOSITORY Order Comment: How was Urine Obtained? CLEAN CATCH TYPE CODE TESTS RESULT OUT OF RANGE REFERENCE UNITS LAB L400.3000 Yellow COLOR Normal Yellow LAB L400.3050 Clear Normal CLARITY Clear LAB L400.3200 Normal mg/dl Normal GLUCOSE, UR Normal LAB L400.3300 Negative mg/dL Normal BILIRUBIN URINE Negative LAB L400.3400 Negative mg/dl Normal KETONE UR Negative LAB L400.3465 1.002-1.030 Normal SP.GR. DIPSTX 1.020 LAB L400.3550 5.0 - 8.0 pH UR Normal 6.0 LAB L400.3600 Negative mg/dl PROT Normal DIPSTX Negative LAB L400.3700 Normal mg/dl Normal UROBILI Normal LAB L400.3750 Negative Normal NITRITE UR Negative LAB L400.3780 Negative /ul Normal OCCULT BLOOD-UR Negative LAB L400.3800 Negative /ul LEUK Normal ESTERASE Negative Performed By: #### L400.2010, L400.7600 #### [facility] [address] [facility] [place], [place], [address] ,URINE Collected: 08/09/2018 Status: F Source: [place] 8:38 AM [facility] REPOSITORY Order Comment: How was Urine Obtained? CLEAN CATCH TYPE CODE TESTS RESULT OUT OF REFERENCE UNITS RANGE LAB L400.8000 Negative Normal HCGUQUAL Negative Result Comment: Very dilute urine specimens, as indicated by a low specific gravity, may not contain senior customer service representative levels of hCG. If is still suspected, a first morning urine specimen should be collected 48 hours later and tested. Performed By: #### L400.2010, L400.7600 #### [facility] [address] [facility] [place], [place], [address] CBC W/DIFF, AUTOMATED Collected: 08/09/2018 Status: F Source: [place] 8:38 AM [facility] REPOSITORY TYPE CODE TESTS RESULT OUT OF RANGE REFERENCE UNITS LAB L100.1000 4.4-11.0 K/mm3 Normal WBC 5.1 LAB L100.1200 4.2-5.4 M/mm3 Normal RBC 4.73 LAB L100.1300 12.0-15.0 g/dl Low HGB 11.5 LAB L100.1400 37-47 % Low HCT 36.7 LAB L100.1500 81-99 fL Low MCV 77.6 LAB L100.1600 27.0-32.0 pg Low MCH 24.3 LAB L100.1700 32-36 g/gl Low MCHC 31.3 LAB L100.1810 11.6-14.6 % High RDW CV 16.2 LAB L100.1820 35.1-43.9 fl High RDW SD 44.5 LAB L100.1900 150-450 K/mm3 Normal PLT 277 LAB L100.2000 6.2-12.0 fl Normal MPV 10.2 LAB L100.2100 47-70 % Normal NEUT% 59.3 LAB L100.2200 19-41 % Normal LY% 29.4 LAB L100.2300 0-10 % Normal MONO% 8.6 LAB L100.2400 0-5 % Normal EO% 1.9 LAB L100.2500 0-1 % Normal BASO% 0.6 LAB L100.2550 0.0-0.9 % Normal IM GRAN % 0.200 Result Comment: IG% - Immature Granulocytes (promyelocytes, myelocytes and metamyelocytes) > 1% indicates that a LEFT SHIFT is Present. LAB L100.2620 2.0-7.7 X10 3/uL Normal Absolute Neut 3.0 LAB L100.2720 0.83-4.51 X10 3/ul Normal Absolute Lymph 1.51 Performed By: #### L100.0100 #### [facility] [address] [place] [address], [address] PROTHROMBIN TIME W/INR Collected: 08/09/2018 Status: F Source: [place] 8:38 AM [facility] REPOSITORY TYPE CODE TESTS RESULT OUT OF RANGE REFERENCE UNITS LAB L300.4150 11.7-14.9 SECONDS Normal PROTIME 13.2 LAB L300.4200 Normal INR 1.0 Performed By: #### L300.3900, L300.4310 #### [facility] [address], [place], [id number] PARTIAL THROMBOPLAST Collected: 08/09/2018 Status: F Source: [place] TIME 8:38 AM [facility] REPOSITORY TYPE CODE TESTS RESULT OUT OF RANGE REFERENCE UNITS LAB L300.4310 24.1-36.2 Seconds Normal PTT 30.4 Performed By: #### L300.3900, L300.4310 #### [facility] [address] [place], [address] COMPREHENSIVE METABOLIC Collected: 08/09/2018 Status: F Source: DARLIN SHERMAN 8:38 AM [facility] REPOSITORY TYPE CODE TESTS RESULT OUT OF RANGE REFERENCE UNITS LAB L501.0100 74-106 mg/dL Normal GLU 106 Result Comment: Fasting Glucose result from 100 to 125 mg/dL suggests IMPAIRED HOMEOSTASIS per A.D.A. criteria. Please note revised GLUCOSE reference range effective 2017. LAB L501.1000 7-18 mg/dL Normal BUN 16 LAB L501.1100 0.55-1.02 mg/dL Normal CREAT,SERUM 0.87 Result Comment: The validity of the calculated GFR AND GFRAA in patients over 70 years has not been determined. Clinical correlation is essential. LAB L501.1110 >60 mL/min Normal EST GFR 79 Result Comment: Non- GFR Calc LAB L501.1115 >60 mL/min Normal EST GFR - AA 96 Result Comment: GFR Calc LAB L501.1255 ml/min Normal Estimated CRCL 77.94 LAB L501.1300 10-20 RATIO Normal BUN/CRE 18.5 LAB L501.1500 6.4-8. g/dL Normal 2 T PROT 7.2 LAB L501.1800 3.2-5. g/dL Normal 0 ALB 3.7 LAB L501.1950 2.2-4. g/dL Normal 2 GLOB 3.5 LAB L501.2000 0.9-2. RATIO Normal 4 A/G 1.1 LAB L501.2200 8.5-10 mg/dL Low .1 CA 8.1 LAB L501.4100 15-37 U/L Normal AST 15 LAB L501.4305 45-117 U/L Normal ALK P 85 LAB L501.4405 13-56 U/L Normal ALT 22 LAB L501.4600 0.20-1 mg/dL Normal .00 T BILI 0.70 LAB L501.5300 136-14 mmol/L Normal 5 NA 137 LAB L501.5600 3.5-5. mmol/L Normal 1 K 3.7 LAB L501.5900 98-107 mmol/L Normal CL 106 LAB L501.6100 21.0-3 mmol/L Normal 2.0 CO2 23.0 LAB L501.6200 5-15 Normal GAP 8 Performed By: #### L500.4050 #### [facility] [address] [place], [address] TYPE AND SCREEN Collected: 08/09/2018 Status: F Source: [place] 8:38 AM [facility] REPOSITORY Order Comment: Surgery Date: 08/16/18 Hx of Preganancy in last 3 Months No Ever experience any problems with transfusion(s)? N Hx of Transfusion in last 3 Months N Reason for Type AND Screen/Red Cells: SURGERY SURGICAL PROCEDURE: 43115 TYPE CODE TESTS RESULT OUT OF RANGE REFERENCE UNITS LAB B10.0800 A Normal BLOOD TYPE GEL POSITIVE LAB B100.4000 Normal Antibody NEGATIVE Screen Performed By: #### B101.7475 #### [facility] [address] [facility] [place], [address] Observed: 08/09/2018 Status: F Source: [place] MRSA/SAID SCREEN 8:38 AM [facility] REPOSITORY MRSA/SAID SCRN S. AUREUS S. aureus Positive MRSA MRSA Negative Performed By: #### M100.651 #### [facility] [address] [place], [address] PROGRESS Observed: 08/04/2018 Status: COMPLETED Source: [place] 9:31 AM [facility] REPOSITORY HNO ID: [id number] Author: Gualberto Wilson Service: (none) Author Type: Physician Type: Progress Notes Filed: 08/04/2018 3:11 PM Note Text: Chief Complaint Patient presents with: Medical Clearance HPI Tuyet Davidson is a 32 year old female who presents here today for pre-op clearance . She has herniated disc. Dr Rodriguez. Anticipating cervical disc replacement. See Care Everywhere for documentation of surgical plan. She has had high bp from the meloxicam. Stopped it last week, BP improved today. No prior Dx or Rx of / for hypertension. ACTIVE PROBLEM LIST Acne Pcos (Polycystic Ovarian Syndrome) Infertility Associated With Anovulation Cervical Radiculopathy Irregular menses remain, no active issues with the PCOS. Past medical history, appointments, medications, allergies reviewed. Previous Medical History PAST MEDICAL HISTORY Diagnosis Date - Abnormal glandular Papanicolaou smear of cervix 2004 Abn. Pap smear (cervix) - ITP (idiopathic thrombocytopenic purpura) 2013 from Bactrim - MRSA cellulitis 2014 Hospitalized. Previous Surgical History PAST SURGICAL HISTORY Procedure Laterality Date - COLPOSCOPY (VAGINOSCOPY) 2004 Colposcopy - CYSTOSCOPY,URETEROSCOPY,STONE REMV 2004 - ORAL SURGERY PROCEDURE [place] Teeth Removed Ureteroscopy. [place] teeth. No probs with anesthesia. Family History FAMILY HISTORY Problem Relation Age of Onset - Prostate Cancer Maternal Grandfather - Hypertension Father - Lipids Father No Fam history of anesthesia reactions. Patient Allergies ALLERGIES Allergen Reactions - Bactrim [Sulfametho* Rash, Other: See Comments thrombocytopenia - Sulfa (Sulfonamide * Other: See Comments Thrombocytopenia. Current Medications Current Outpatient Prescriptions on File Prior to Visit: meloxicam (MOBIC) 15 mg tablet Take 15 mg by mouth once daily. tiZANidine HCl (ZANAFLEX) 4 mg capsule Take 4 mg by mouth as needed. fluticasone (FLONASE) 50 mcg/actuation nasal spray Use 2 Sprays in each nostril once daily. Rinse mouth after use. SACCHAROMYCES BOULARDII (PROBIOTIC, S.BOULARDII, ORAL) Take 1 tablet by mouth once daily. Jauipkdt-Bw-Ikj-Fe-FA ( VITAMIN) ORAL Tab Take 1 tablet by mouth once daily. phenazopyridine (PYRIDIUM) 200 mg tablet TO BE TAKEN DIRECTED BY MOUTH ONE(1) TABLET THREE TIMES DAILY X 2 DAYS (Patient not taking: Reported on 07/05/2018 ) naproxen (NAPROSYN) 500 mg tablet Take 500 mg by mouth twice daily. cyclobenzaprine (FLEXERIL) 10 mg tablet Take 10 mg by mouth three times daily. No current facility-administered medications on file prior to visit. Social History Social History Marital status: Spouse name: Leonard Davidson Years of education: Number of children: 1 Occupational History Occupation Employer Comment RN Social History Main Topics Smoking status: Never Smoker Smokeless tobacco: Never Used Alcohol use: Yes Comment: Rarely Drug use: No Sexual activity: Yes Partners with: Male control/protection: None ROS: General: Feels well, no weight changes, fever, chills. HEENT: No sinus congestion, earache, sore throat. Cardiac: No chest pain, palpitations, shortness of breath Resp: No cough, wheeze. GI: No reflux symptoms, food intolerance, bowel changes. : No urinary frequency, dysuria. MS: No pain or joint complaints. PHYSICAL EXAMINATION BP 130/84 (BP Site: Left Arm, BP Position: Sitting, BP Cuff Size: Large Adult) Pulse 95 Temp 36.6 ?C (97.9 ?F) Resp 17 Ht 162.6 cm (5' 4) Wt 88.8 kg (195 lb 11.2 oz) LMP 08/25/2017 BMI 33.59 kg/m? General: Alert and oriented, no distress, pleasant and cooperative. Heart: Regular, normal S1 and S2, no murmurs, rubs, or gallops Lungs: Clear to auscultation bilaterally Abdomen: Benign Extremities: Feet/ankles without edema, posterior tibial pulses full and symmetrical Health Maintenance List DTAP,TDAP,TD(7 - Tdap) due on 03/04/2008 HPV EVERY 5 YEARS due on 2013 PAP EVERY 5 YEARS due on 04/27/2016 INFLUENZA(1) due on 03/26/2018 Data reviewed [facility] labs, shows Kidney function, electrolytes and sugar are normal. CBC mild anemia . Normal coags. Assessment/Plan: (M54.12) Cervical radiculopathy (primary encounter diagnosis) Comment: surgical lesion. Plan: she is to proceed with surgery (M50.20) Herniated cervical disc Comment: as above Plan: agree with planned surgery. (R03.0) Elevated blood pressure reading without diagnosis of hypertension Comment: she has not been on blood pressure medication before. Blood pressures presumed to be a combination of pain and anti-inflammatory provoking her BP. Normal labs recently. Plan: lisinopril (ZESTRIL, PRINIVIL) 5 mg tablet in the interest of expediting surgery will add lisinopril temporarily to get the blood pressure down rather than delay surgery or allow her to go into surgery with an elevated blood pressure she will check her blood pressure again next week. Presuming a reasonable response she will be okay for surgery. Side effects are reviewed. Signed Prescriptions Disp Refills lisinopril (ZESTRIL, PRINIVIL) 5 mg tablet 30 tablet 1 Sig: Take 1 tablet by mouth once daily. RTO:nurse visit next week for blood pressure check. Gualberto Wilson MD CNOV Observed: 08/04/2018 Status: COMPLETED Source: [place] 9:20 AM [facility] REPOSITORY Office Visit (FPWADS) TUYET DAVIDSON ([id number]) 1985 F Date Time Provider Department 08/04/18 9:20 AM GUALBERTO WILSON During your visit today, we recorded the following information about you: Temperature Pulse Respiration Blood pressure 97.9 degrees 95/minute 17/minute 146/82 Weight Height Last Period 88.8 kg 1.626 m 08/25/17 Gualberto Wilson MD 08/04/2018 3:11 PM Signed Chief Complaint Patient presents with: Medical Clearance HPI Tuyet Davidson is a 32 year old female who presents here today for pre-op clearance . She has herniated disc. Dr Rodriguez. Anticipating cervical disc replacement. See Care Everywhere for documentation of surgical plan. She has had high bp from the meloxicam. Stopped it last week, BP improved today. No prior Dx or Rx of / for hypertension. ACTIVE PROBLEM LIST Acne Pcos (Polycystic Ovarian Syndrome) Infertility Associated With Anovulation Cervical Radiculopathy Irregular menses remain, no active issues with the PCOS. Past medical history, appointments, medications, allergies reviewed. Previous Medical History PAST MEDICAL HISTORY Diagnosis Date - Abnormal glandular Papanicolaou smear of cervix 2004 Abn. Pap smear (cervix) - ITP (idiopathic thrombocytopenic purpura) 2013 from Bactrim - MRSA cellulitis 2014 Hospitalized. Previous Surgical History PAST SURGICAL HISTORY Procedure Laterality Date - COLPOSCOPY (VAGINOSCOPY) 2004 Colposcopy - CYSTOSCOPY,URETEROSCOPY,STONE REMV 2004 - ORAL SURGERY PROCEDURE [place] Teeth Removed Ureteroscopy. [place] teeth. No probs with anesthesia. Family History FAMILY HISTORY Problem Relation Age of Onset - Prostate Cancer Maternal Grandfather - Hypertension Father - Lipids Father No Fam history of anesthesia reactions. Patient Allergies ALLERGIES Allergen Reactions - Bactrim [Sulfametho* Rash, Other: See Comments thrombocytopenia - Sulfa (Sulfonamide * Other: See Comments Thrombocytopenia. Current Medications Current Outpatient Prescriptions on File Prior to Visit: meloxicam (MOBIC) 15 mg tablet Take 15 mg by mouth once daily. tiZANidine HCl (ZANAFLEX) 4 mg capsule Take 4 mg by mouth as needed. fluticasone (FLONASE) 50 mcg/actuation nasal spray Use 2 Sprays in each nostril once daily. Rinse mouth after use. SACCHAROMYCES BOULARDII (PROBIOTIC, S.BOULARDII, ORAL) Take 1 tablet by mouth once daily. Muiyqjas-Bf-Ktz-Fe-FA ( VITAMIN) ORAL Tab Take 1 tablet by mouth once daily. phenazopyridine (PYRIDIUM) 200 mg tablet TO BE TAKEN DIRECTED BY MOUTH ONE(1) TABLET THREE TIMES DAILY X 2 DAYS (Patient not taking: Reported on 07/05/2018 ) naproxen (NAPROSYN) 500 mg tablet Take 500 mg by mouth twice daily. cyclobenzaprine (FLEXERIL) 10 mg tablet Take 10 mg by mouth three times daily. No current facility-administered medications on file prior to visit. Social History Social History Marital status: Spouse name: Leonard Davidson Years of education: Number of children: 1 Occupational History Occupation Employer Comment RN Social History Main Topics Smoking status: Never Smoker Smokeless tobacco: Never Used Alcohol use: Yes Comment: Rarely Drug use: No Sexual activity: Yes Partners with: Male control/protection: None ROS: General: Feels well, no weight changes, fever, chills. HEENT: No sinus congestion, earache, sore throat. Cardiac: No chest pain, palpitations, shortness of breath Resp: No cough, wheeze. GI: No reflux symptoms, food intolerance, bowel changes. : No urinary frequency, dysuria. MS: No pain or joint complaints. PHYSICAL EXAMINATION BP 130/84 (BP Site: Left Arm, BP Position: Sitting, BP Cuff Size: Large Adult) Pulse 95 Temp 36.6 ?C (97.9 ?F) Resp 17 Ht 162.6 cm (5' 4) Wt 88.8 kg (195 lb 11.2 oz) LMP 08/25/2017 BMI 33.59 kg/m? General: Alert and oriented, no distress, pleasant and cooperative. Heart: Regular, normal S1 and S2, no murmurs, rubs, or gallops Lungs: Clear to auscultation bilaterally Abdomen: Benign Extremities: Feet/ankles without edema, posterior tibial pulses full and symmetrical Health Maintenance List DTAP,TDAP,TD(7 - Tdap) due on 03/04/2008 HPV EVERY 5 YEARS due on 2013 PAP EVERY 5 YEARS due on 04/27/2016 INFLUENZA(1) due on 03/26/2018 Data reviewed [facility] labs, shows Kidney function, electrolytes and sugar are normal. CBC mild anemia . Normal coags. Assessment/Plan: (M54.12) Cervical radiculopathy (primary encounter diagnosis) Comment: surgical lesion. Plan: she is to proceed with surgery (M50.20) Herniated cervical disc Comment: as above Plan: agree with planned surgery. (R03.0) Elevated blood pressure reading without diagnosis of hypertension Comment: she has not been on blood pressure medication before. Blood pressures presumed to be a combination of pain and anti-inflammatory provoking her BP. Normal labs recently. Plan: lisinopril (ZESTRIL, PRINIVIL) 5 mg tablet in the interest of expediting surgery will add lisinopril temporarily to get the blood pressure down rather than delay surgery or allow her to go into surgery with an elevated blood pressure she will check her blood pressure again next week. Presuming a reasonable response she will be okay for surgery. Side effects are reviewed. Signed Prescriptions Disp Refills lisinopril (ZESTRIL, PRINIVIL) 5 mg tablet 30 tablet 1 Sig: Take 1 tablet by mouth once daily. RTO:nurse visit next week for blood pressure check. Gualberto Wilson MD Referring Provider: GUALBERTO WILSON [[id number]] Allergies As of Date: 08/04/2018 Noted Allergy Reaction BACTRIM (SULFAMETHOXAZOLE) 06/07/2014 2 - Rash 14 - Other: See Comments Comments: thrombocytopenia SULFA (SULFONAMIDE ANTIBIOTICS) 08/11/2014 14 - Other: See Comments Comments: Thrombocytopenia. Date Reviewed: 08/04/2018 Reviewed by: Laura Haddad Ma - Fully Assessed Reason for Visit: Medical Clearance [1982] Primary Visit Diagnosis:Cervical radiculopathy [M54.12] Other Visit Diagnoses:Herniated cervical disc [M50.20] Elevated blood pressure reading without diagnosis of hypertension [R03.0] Preoperative clearance [Z01.818] Order(s):lisinopril (ZESTRIL, PRINIVIL) 5 mg tabletTake 1 tablet by mouth once daily.Disp: 30 tabletRfl: 1 Prescriptions as of 08/04/2018 Sig: HYDROCODONE 5 MG-ACETAMINOPHE* MELOXICAM 15 MG TABLET Take 15 mg by mouth once jeremiah* TIZANIDINE 4 MG CAPSULE Take 4 mg by mouth as needed. FLUTICASONE 50 MCG/ACTUATION * Use 2 Sprays in each nostril * PROBIOTIC (S.BOULARDII) ORAL Take 1 tablet by mouth once d* VITAMIN,CALCIUM,MINE* Take 1 tablet by mouth once d* LISINOPRIL 5 MG TABLET Take 1 tablet by mouth once d* Problem List As Of Date 08/04/2018 Noted Resolved Acne [L70.9] INVALID FOR* PCOS (Polycystic Ovarian Syndrome) [E28.2] INVALID FOR* Infertility associated with anovulation [N97.0] INVALID FOR* Cervical radiculopathy [M54.12] INVALID FOR* Prescriptions ordered this encounter Disp Refills Start End LISINOPRIL 5 MG TABLET 30 t* 1 08/04/2018 Route: ORAL Sig: Take 1 tablet by mouth once daily. Medications Discontinued During This Encounter cyclobenzaprine (FLEXERIL) 10 mg tab* 0 05/18/2018 08/04/2018 Class: Historical Med Route: ORAL Sig: Take 10 mg by mouth three times daily. Disc: Reason for discontinue is not on file. naproxen (NAPROSYN) 500 mg tablet 0 05/18/2018 08/04/2018 Class: Historical Med Route: ORAL Sig: Take 500 mg by mouth twice daily. Disc: Reason for discontinue is not on file. phenazopyridine (PYRIDIUM) 200 mg ta* 6 ta* 0 06/29/2018 08/04/2018 Sig: TO BE TAKEN DIRECTED BY MOUTH ONE(1) TABLET THREE TIMES DAILY X 2 DAYS Patient not taking: Reported on 07/05/2018 Disc: Reason for discontinue is not on file. Encounter Status:Closed by CHICHO WILSON MD on 08/04/18 ORTHOPEDIC VISIT Observed: 08/02/2018 Status: F Source: [place] REPORT 7:57 PM [facility] REPOSITORY [facility] [address] [place] [address] OFFICE VISIT Date of Service: 08/02/18 MR#: [id number] Acct: [id number] Name: TUYET DAVIDSON Rep #: [id number] : 1985 Provider: Pam Rodriguez MD Age/Sex: 32/F Location: [facility] Status: Signed Intake Vital Signs08/02/18 Body Mass Index (BMI) 34.0 Intake Visit Reasons: cervical Allergies Sulfa (Sulfonamide Antibiotics) Allergy (Verified 06/15/18 09:27) Low platelets sulfamethoxazole [From Bactrim] Allergy (Verified 06/15/18 09:27) Low platelets trimethoprim [From Bactrim] Allergy (Verified 06/15/18 09:27) Low platelets Medications Cyclobenzaprine [Flexeril] 10 mg PO TID PRN #20 tab 05/18/18 [Rx] Naproxen [Naprosyn] 500 mg PO BID #14 tab 05/18/18 [Rx] Meloxicam [Mobic] 15 mg PO DAILY #30 tab 06/15/18 [Rx] MethylPREDNISolone DosePak [Medrol DosePak] 4 mg PO UD #1 box 06/15/18 [Rx] Tizanidine HCl [Zanaflex] 4 mg PO [id number] #30 tab 06/15/18 [Rx] PFSH Social History Smoking Status: Never smoker HPI cervical: Details: TUYET DAVIDSON is a 32 year old F here today for neck pain 30% and left periscapular, posterior arm, dorsal forearm and index/long/ring finger pain and paresthesias. She has had intermittent left periscapular pain for over a year, but she developed severe neck and left arm pain at the end of April when she woke up and stretched and had immense pain in her neck that was sharp and shooting. She had previously done PT with ultrasound and stretching last year and in 02/2018, but none since this current episode of pain. A week after the above incident, she developed left arm pain and weakness. She states she has weakness in the left arm and has troubles with overhead activities. She went to the ER on 06/15/2018 and was started on mobic, which has helped some of her left arm pain and paresthesias, but she continues to have significant difficulty with activities of daily living. She denies bowel or bladder issues, gait instability or difficulty with hand dexterity. She states her pain is worse with activity and improved with holding her arm close to her body. She is scheduled to have surgery with Dr Casas in [place] for artificial disc C5/6 and C6/7. She would like another opinion. She denies nicotine use. She is a nurse at [employer]. Ortho Exam Spine Neuro: Yes Spurling's (positive on the left), Kearns's (negative bilaterally), Babinski (downgoing bilaterally), Clonus (none bilaterally) and Light Touch Sensation (decreased in the left arm) General: alert, oriented x3 Capillary Refill <2sec: Yes Gait: normal gait, other (heel and toe walk intact) DTR's: Rt Triceps: 1+, Lt Triceps: 1+, Rt Biceps: 1+, Lt Biceps: 1+, Rt Brachioradialis: 1+, Lt Brachioradialis: 1+, Rt Patellar: 1+, Lt Patellar: 1+, Rt Ankle: 1+, Lt Ankle: 1+ Plantar Reflexes: Downgoing: bilateral Coordination: tandem gait normal SPINE TESTING CERVICAL Compression pain: Left THORACIC LUMBAR Musculoskeletal General: Yes normal gait Cervical Spine: pain with cervical ROM, cervical muscular tenderness, cervical spinal tenderness Sensory Exam/Pin Prick: Left (decreased in the left upper extremity) Strength 0=absent - 5=normal Deltoid R (C5): 5, Deltoid L (C5): 5, R Bicep (C5-6): 5, L Bicep (C5-6): 5, R Wrist Extensor (C6): 5, L Wrist Extensor (C6): 5, R Tricep (C7): 5, L Tricep (C7): 3, R Finger Flexors (C8): 5, L Finger Flexors (C8): 5, R First Dorsal Interossei (C8): 5, L First Dorsal Interossei (C8): 5, R Hip Flexor (L1-3): 5, L Hip Flexor (L1-3): 5, R Quadriceps (L2-4): 5, L Quadriceps (L2-4): 5, R Anterior Tibialis (L4-5): 5, L Anterior Tibialis (L4- 5): 5, R EHL (L5): 5, L EHL (L5): 5, R Hamstrings (L5-S1): 5, L Hamstrings (L5-S1): 5, GS (S1): 5, L GS (S1): 5, R Peroneals (S1): 5, L Peroneals (S1): 5 Details: 4/5 left wrist flexor strength, 5/5 right wrist flexor strength. Assessment AND Plan Problems 1. Cervical radiculopathy M54.12 Plan Imaging XR cervical spine 08/02/2018 reveals diffuse spondylosis MRI cervical spine 05/31/2018 reveals diffuse spondylosis with left C6-7 disc herniation with severe foraminal stenosis I/R/P: 1. neck pain 2. left arm pain, weakness Ms. Davidson presents with neck pain and left C7 radiculopathy and weakness for the past 3 months. The natural history and course of the symptomatology of cervical radiculopathy was discussed in detail with the patient. I answered all questions regarding the mode of onset, pathophysiology, symptoms, imaging findings, treatment options (both non-operative and operative) regarding her diagnosis. She has exhausted all conservative/nonoperative treatment measures to include activity modifications and medications and given she has weakness, therefore we will recommend surgical intervention to include a C6-C7 anterior cervical decompression with disc arthroplasty versus ACDF. Over 30 minutes was spent in consultation with this patient. Risks, benefits and alternatives to surgery were discussed. Risks discussed include but are not limited to catastrophic complications of and blindiness, risks of anesthesia, blood loss, infection, nerve injury, dural tear, nonunion, failure to relieve symptoms, worsening of symptoms, adjacent level disease, need for further surgery, paralysis, dysphagia, dysphonia, and DVT/PE. She verbalized given she has had weakness for 3 months, this may be permanent. She will need medical clearance. She has had worsening symptoms since her MRI in 05/2018 necessitating going to the ER. Recommend an updated MRI to assess the progression of the disc herniation. All questions were answered. The procedure was discussed in detail with the use of plastic models. Surgical consent was signed and reviewed. The patient verbalized understanding and agreed to comply with the treatment plan formulated. Orders Orders: Coding Level of Care Code Off vis,new,level 4 Diagnoses Cervical radiculopathy M54.12 08/02/181956 <Electronically signed by Pam Rodriguez MD> Date Pam Rodriguez MD Cosigner Signature: Date (if applicable) CC: CERV SPINE 4 OR 5 Observed: 08/02/2018 Status: F Source: [place] VIEWS 8:18 AM [facility] REPOSITORY [facility] Imaging Services [address] [place] [address] Cerv Spine 4 or 5 Views MR#: [id number] Acct: [id number] Name: TUYET DAVIDSON Rep #: [id number] : 1985 F 32 From: Wilian Schulz MD PCP: Chicho Wilson MD Status: REG CLI Study: Cerv Spine 4 or 5 Views Date of Exam: 08/02/18 Exam# [id number] Ordering Dr: Pam Rodriguez MD HISTORY: PBack Pain COMPARISON: None FINDINGS: XR cervical spine with lateral flexion and extension views for total 6 views With flexion and extension, adequate cervical spine mobility. No spondylolisthesis or abnormal motion. No instability seen. Cervical vertebra show normal height and alignment. C6-7 mild disc space narrowing accompanied by mild anterior endplate spurring. The remaining cervical disc space heights are preserved. Intact posterior elements. The C1-C2 relationship appears normal. Neuroforamina are patent. RAD/Cerv Spine 4 or 5 Views IMPRESSION: 1. C6-7 early degenerative disc disease and spondylosis. 2. Normal cervical vertebral alignment. No instability or abnormal motion. at 0448 Reported and signed by: Wilian Schulz MD Electronically Signed: Wilian Schulz, at 4:47 EST Tel , Service support , CC: Pam Rodriguez MD; Chicho Wilson MD [employer]: Signed HEMOGRAM Collected: 07/28/2018 Status: F Source: [employer] 10:08 AM SYSTEM REPOSITORY TYPE CODE TESTS RESULT OUT OF RANGE REFERENCE UNITS LAB IWBC 3.6-10.7 10*3/uL WBC Normal 5.0 LAB RBC 3.80-5.20 10*6/uL RBC Normal 4.67 LAB HGB 11.7-16.0 g/dL Low Hemoglobin 11.3 LAB HCT 35.0-47.0 % Normal Hematocrit 35.4 LAB MCV 79.0-98.0 fL Low MCV 75.9 LAB MCH 26.0-34.0 pg Low MCH 24.1 LAB MCHC 32.0-36.0 % Low MCHC 31.8 LAB RDW 11.5-14.5 % High RDW 16.7 LAB PLT 140-440 10*3/uL Platelet Normal 293 LAB MPV 7.4-10.4 fL MPV Normal 8.0 Performed By: #### HEMOG, PT, APTT, BMP3 #### [employer] [address] [place] [id number] PROTHROMBIN TIME Collected: 07/28/2018 Status: F Source: [employer] 10:08 AM SYSTEM REPOSITORY TYPE CODE TESTS RESULT OUT OF REFERENCE UNITS RANGE LAB PROTM 9.0-12.0 s Prothrombin Normal Time 9.5 Result Comment: . LAB INR 0.9-1.1 NA Normal INR 0.9 Result Comment: Recommended Anticoagulant Therapy: SEE BELOW ----- INR of 2.0 - 3.0 : - Prophylaxis of Venous Thrombosis (high-risk surgery) - Treatment of Venous Thrombosis - Treatment of Pulmonary Embolism (Includes tissue heart valves, Acute Myocardial Infarction to prevent systemic embolism, Valvular Heart Disease, and Atrial Fibrillation) ----- INR of 2.5 - 3.5 : - Mechanical Prosthetic Valves (high risk) - If oral anticoagulant therapy is used to prevent Myocardial Infarction Performed By: #### HEMOG, PT, APTT, BMP3 #### [facility] [address] [place] [id number] APTT Collected: 07/28/2018 Status: F Source: [employer] 10:08 AM SYSTEM REPOSITORY TYPE CODE TESTS RESULT OUT OF RANGE REFERENCE UNITS LAB PTTA 20.0-30.5 s Normal APTT 22.0 Result Comment: NOTE: The therapeutic time for Heparin anticoagulation, based on Xa activity inhibition, is an APTT of 46-80 seconds. Performed By: #### HEMOG, PT, APTT, BMP3 #### [facility] [employer] [address] [id number] BASIC METABOLIC PANEL Collected: 07/28/2018 Status: F Source: [employer] 10:08 AM SYSTEM REPOSITORY TYPE CODE TESTS RESULT OUT OF RANGE REFERENCE UNITS LAB NA3 135-145 mmol/L Sodium Normal 139 LAB K3 3.5-5.1 mmol/L Normal Potassium 4.1 LAB CL3 98-107 mmol/L Chloride Normal 102 LAB CO23 22-30 mmol/L Carbon Normal Dioxide 26 LAB ANIN3 NA Anion Gap 10 LAB GLUC3 70-100 mg/dL Glucose Normal 92 LAB BUN3 7-20 mg/dL Urea Normal Nitrogen 20 LAB CRET3 0.52-1.25 mg/dL Normal Creatinine 0.78 LAB GF3BR >60 mL/min eGFR > 60.0 LAB GF3WR >60 mL/min eGFR OTHER > 60.0 Result Comment: Source- MDRD equation with creatinine calibration to IDMS(NKDEP) eGFR not recommended for drug dose adjustment LAB CA3 8.4-10.4 mg/dL Normal Calcium 9.0 Performed By: #### HEMOG, PT, APTT, BMP3 #### [facility] [employer] [address] [address] GLU Collected: 07/07/2018 Status: F Source: [facility] 2:03 PM [facility] REPOSITORY TYPE CODE TESTS RESULT OUT OF REFERENCE UNITS RANGE LAB GLU(LOINC) 70-105 mg/dL Glucose Level 80 Performed By: #### GLU, LIPID #### [facility] [address] [place] [address] LIPID Collected: 07/07/2018 Status: F Source: [facility] 2:03 PM [facility] REPOSITORY TYPE CODE TESTS RESULT OUT OF REFERENCE UNITS RANGE LAB CHOL(LOINC 0-200 mg/dL ) Cholesterol High 222 Result Comment: Cholesterol Reference Interval: Less than 200 Desirable 200-239 Borderline high risk 240 and above High risk LAB TRIG(LOINC) 0-150 mg/dL Triglycerides 93 Result Comment: Triglyceride Reference Interval: Less than 150 Normal 150-199 Borderline high risk 200-499 High risk 500 or higher Very high risk LAB HD(LOINC) 40-60 mg/dL HDL High Cholesterol 63 LAB LDL(LOINC) 0-130 mg/dL LDL High Cholesterol 140 Performed By: #### GLU, LIPID #### [place] [address] PROGRESS Observed: 07/05/2018 Status: COMPLETED Source: [place] 9:31 AM [facility] REPOSITORY HNO ID: [id number] Author: Annalee Borges LPN Service: (none) Author Type: (none) Type: Progress Notes Filed: 07/05/2018 9:44 AM Note Text: Manual Readin/92 Pulse: 92 BP Goldy average: 130/88 P: 94 Repeat BP Check: 130/89 P92 #1 139/83 P94 #2 124/87 P95 #3 132/91 P95 #4 130/94 P92 #5 126/87 P93 #6 Reason for blood pressure check - Last BP elevated Patient is: Taking medication as prescribed Yes Took medication today Yes If no, date medication last taken N/A Experiencing side effects No BP was elevated at last appt with on 06/29/18. Taking all medications as prescribed. Denies any chest pain, shortness of breath, dizziness, or headaches. Daily caffeine use. No personal history of tobacco use; no current exposure. Alert and oriented. Pt has been identified by name and birthdate: Yes Allergies reviewed: Yes Latex allergy: no. Medication - prescribed and OTC reviewed and updated: Yes Do you need any prescription refills prior to your next visit: No Health Maintenance: Reviewed and up to date Patient advised to continue with current medications and would be contacted with any further instructions after review by PCP. Annalee Borges LPN CNNURSE Observed: 07/05/2018 Status: COMPLETED Source: [place] 9:30 AM [facility] REPOSITORY Nurse Visit (FAMPWS) TAPANTUYET FERRER ([id number]) 1985 F Date Time Provider Department 07/05/18 9:30 AM [facility] NURSE MIKO During your visit today, we recorded the following information about you: Pulse Blood pressure 94/minute 130/88 Annalee Borges LPN 07/05/2018 9:44 AM Signed Manual Readin/92 Pulse: 92 BP Goldy average: 130/88 P: 94 Repeat BP Check: 130/89 P92 #1 139/83 P94 #2 124/87 P95 #3 132/91 P95 #4 130/94 P92 #5 126/87 P93 #6 Reason for blood pressure check - Last BP elevated Patient is: Taking medication as prescribed Yes Took medication today Yes If no, date medication last taken N/A Experiencing side effects No BP was elevated at last appt with UC on 06/29/18. Taking all medications as prescribed. Denies any chest pain, shortness of breath, dizziness, or headaches. Daily caffeine use. No personal history of tobacco use; no current exposure. Alert and oriented. Pt has been identified by name and birthdate: Yes Allergies reviewed: Yes Latex allergy: no. Medication - prescribed and OTC reviewed and updated: Yes Do you need any prescription refills prior to your next visit: No Health Maintenance: Reviewed and up to date Patient advised to continue with current medications and would be contacted with any further instructions after review by PCP. Annalee Borges LPN Referring Provider: JULISSA FRANK (RACHID) [[id number]] Allergies As of Date: 07/05/2018 Noted Allergy Reaction BACTRIM (SULFAMETHOXAZOLE) 06/07/2014 2 - Rash 14 - Other: See Comments Comments: thrombocytopenia SULFA (SULFONAMIDE ANTIBIOTICS) 08/11/2014 14 - Other: See Comments Comments: Thrombocytopenia. Date Reviewed: 06/29/2018 Reviewed by: Julissa Warren (Rachid) Sd - Fully Assessed Reason for Visit: Blood Pressure Check [195] Primary Visit Diagnosis:Elevated blood pressure reading without diagnosis of hypertension [R03.0] Prescriptions as of 07/05/2018 Sig: CEPHALEXIN 500 MG CAPSULE Take 1 capsule by mouth twice* FLUTICASONE 50 MCG/ACTUATION * Use 2 Sprays in each nostril * MELOXICAM 15 MG TABLET Take 15 mg by mouth once jeremiah* VITAMIN,CALCIUM,MINE* Take 1 tablet by mouth once d* PROBIOTIC (S.BOULARDII) ORAL Take 1 tablet by mouth once d* TIZANIDINE 4 MG CAPSULE Take 4 mg by mouth as needed. CYCLOBENZAPRINE 10 MG TABLET Take 10 mg by mouth three aura* NAPROXEN 500 MG TABLET Take 500 mg by mouth twice da* PHENAZOPYRIDINE 200 MG TABLET TO BE TAKEN DIRECTED BY MO* Patient not taking: Reported on 07/05/2018 Problem List As Of Date 07/05/2018 Noted Resolved Acne [L70.9] INVALID FOR* PCOS (Polycystic Ovarian Syndrome) [E28.2] INVALID FOR* Infertility associated with anovulation [N97.0] INVALID FOR* Cervical radiculopathy [M54.12] INVALID FOR* Encounter Status:Closed by ANNALEE BORGES LPN on 07/05/18 Observed: 06/29/2018 Status: F Source: [place] URINE CULTURE 5:30 PM [facility] REPOSITORY Sp. Request/Comment: - Specimen received in preservative Culture Result - >=100,000 CFU/ml Escherichia coli --> ABNORMAL ALERT ORGANISM: Escherichia coli METHOD: Minimum inhibitory concentration(Vitek) Antibiotic Interp SHER Status Ampicillin SUSCEPTIBLE 4 F Gentamicin SUSCEPTIBLE <=1 F Trimeth sulfameth SUSCEPTIBLE <=20 F Cefazolin SUSCEPTIBLE <=4 F CLSI breakpoints for therapy of uncomplicated UTI's due to E.coli, K.pneumoniae, and P.mirabilis were applied and may be used to predict the activity of oral agents(cefaclor, cefdinir, cefpodoxime, cefp rozil, cefuroxime, cephalexin, loracarbef). Ciprofloxacin SUSCEPTIBLE <=0.25 F Nitrofurantoin SUSCEPTIBLE <=16 F Cefepime SUSCEPTIBLE <=1 F Piperacillin/Tazobac SUSCEPTIBLE <=4 F Ampicillin Sulbact SUSCEPTIBLE <=2 F Ceftriaxone SUSCEPTIBLE <=1 F Meropenem SUSCEPTIBLE <=0.25 F Ertapenem SUSCEPTIBLE <=0.5 F Performed By: #### URCUL #### [facility] [address] [place], [place] [address] PROGRESS Observed: 06/29/2018 Status: COMPLETED Source: [place] 5:21 PM [facility] [place] REPOSITORY HNO ID: [id number] Author: Julissa Warren (Rachid) Sd Service: (none) Author Type: Nurse Practitioner Type: Progress Notes Filed: 06/29/2018 5:28 PM Note Text: Subjective HPI Patient presents with: Urinary Problem: pain with urination, abdominal pain x 6 days, low grade fever x today Denies any otc treatment for symptoms. States hx of kidney stones Review of Systems Constitutional: Positive for fever (low grade). Negative for chills and malaise/fatigue. Gastrointestinal: Positive for abdominal pain (lower stomach ache). Negative for diarrhea, nausea and vomiting. Genitourinary: Positive for dysuria and frequency. Negative for flank pain and hematuria. Denies vaginal discharge/itchiness Denies exposure to STD Musculoskeletal: Negative for back pain. All other systems reviewed and are negative. PAST MEDICAL HISTORY Diagnosis Date - Abnormal glandular Papanicolaou smear of cervix 2004 Abn. Pap smear (cervix) - ITP (idiopathic thrombocytopenic purpura) 2013 from Bactrim - MRSA cellulitis 2014 Hospitalized. PAST SURGICAL HISTORY Procedure Laterality Date - COLPOSCOPY (VAGINOSCOPY) 2004 Colposcopy - CYSTOSCOPY,URETEROSCOPY,STONE REMV 2004 - ORAL SURGERY PROCEDURE [place] Teeth Removed ALLERGIES Bactrim [Sulfamethoxazole]; Sulfa (Sulfonamide Antibiotics) MEDICATIONS meloxicam (MOBIC) 15 mg tablet Take 15 mg by mouth once daily. tiZANidine HCl (ZANAFLEX) 4 mg capsule Take 4 mg by mouth as needed. fluticasone (FLONASE) 50 mcg/actuation nasal spray Use 2 Sprays in each nostril once daily. Rinse mouth after use. SACCHAROMYCES BOULARDII (PROBIOTIC, S.BOULARDII, ORAL) Take 1 tablet by mouth once daily. Kjvfwtws-Us-Rwc-Fe-FA ( VITAMIN) ORAL Tab Take 1 tablet by mouth once daily. cephALEXin (KEFLEX) 500 mg capsule Take 1 capsule by mouth twice daily for 7 days. FOR 10 DAYS phenazopyridine (PYRIDIUM) 200 mg tablet TO BE TAKEN DIRECTED BY MOUTH ONE(1) TABLET THREE TIMES DAILY X 2 DAYS naproxen (NAPROSYN) 500 mg tablet Take 500 mg by mouth twice daily. cyclobenzaprine (FLEXERIL) 10 mg tablet Take 10 mg by mouth three times daily. FAMILY HISTORY Problem Relation Age of Onset - Prostate Cancer Maternal Grandfather - Hypertension Father - Lipids Father Social History Substance Use Topics - Smoking status: Never Smoker - Smokeless tobacco: Never Used - Alcohol use Yes Comment: Rarely Objective Physical Exam Constitutional: She is well-developed, well-nourished, and in no distress. HENT: Head: Normocephalic. Eyes: Conjunctivae are normal. Neck: Normal range of motion. Cardiovascular: Normal rate, regular rhythm and normal heart sounds. Pulmonary/Chest: Effort normal and breath sounds normal. Abdominal: Soft. She exhibits no distension. There is tenderness in the suprapubic area. There is no rebound, no guarding and no CVA tenderness. Skin: Skin is warm and dry. No rash noted. Nursing note and vitals reviewed. ASSESSMENT/PLAN: 1. Pain with urination - ICD9: 788.1, ICD10: R30.9 (primary diagnosis) acute - UA positive for jacobo esterase, hematuria, proteinuria and nitrates - Send urine for culture - Begin treatment with Keflex for 7 days - Patient education for prevention given - UA DIP, URINE (POC) - URINE CULTURE - F/u with pcp in 3-5 days or sooner if symptoms are not improving or worsening 2. Acute cystitis with hematuria - ICD9: 595.0, ICD10: N30.01 Prescription instructions reviewed with patient as applicable. Patient advised if symptoms do not improve or if symptoms worsen sooner, to contact their primary care physician. Potential red flag symptoms discussed with the patient. Reviewed appropriate action plan to take if red flag symptoms occur. Patient agreeable to treatment plan. Julissa Frank APRN.REGINE CNOV Observed: 06/29/2018 Status: COMPLETED Source: [place] 5:00 PM [facility] REPOSITORY Office Visit (WSTR) TUYET DAVIDSON ([id number]) 1985 F Date Time Provider Department 06/29/18 5:00 PM JULISSA FRANK (SUPERVISOR [employer]REARMS) [facility] During your visit today, we recorded the following information about you: Temperature Pulse Respiration Blood pressure 99.3 degrees 122/minute 18/minute 144/94 Weight Last Period 86.6 kg 06/25/18 Julissa Frank APRN.CNP 06/29/2018 5:16 PM Addendum Patient Education for Female Urinary Tract Infections Possible complications: Pyelonehritis Renal abscess Expected course/prognosis: * symptoms resolve within 2-3 days after starting treatment in almost all patients * one-fourth of women with simple UTI experience a second UTI within 6 months, and half at some time during lifetime. * patients with multiple recurrent UTI and no underlying urinary tract abnormality may receive long-term prophylactic antibioitic treatment. Trimethoprim-sulfamethoxazole and nitrofurantoin common used. * women with frequent or intercourse-related UTI should empty bladder immediately before and following intercourse and consider postcoital antibiotic treament Instructions: * Maintain good hydration * Avoid sexual intercourse when symptoms present *Take antibiotic as directed * Return if symptoms not resolved or markedly improved within 48 hours * Return if fever, chills, or flank pain develop * If taking prophylactic antiobiotics, take at bedtime * Take showers instead of tub baths * Avoid feminine hygiene sprays and scented douches * Wipe urethra from front to back Please call or return to the office if you are not feeling better in 5-7 days. You can try taking OTC Uristat (pyridium) if needed for burning. Beware that it will turn your urine orange/red. Julissa Frank APRN.CNP 06/29/2018 5:28 PM Signed Subjective HPI Patient presents with: Urinary Problem: pain with urination, abdominal pain x 6 days, low grade fever x today Denies any otc treatment for symptoms. States hx of kidney stones Review of Systems Constitutional: Positive for fever (low grade). Negative for chills and malaise/fatigue. Gastrointestinal: Positive for abdominal pain (lower stomach ache). Negative for diarrhea, nausea and vomiting. Genitourinary: Positive for dysuria and frequency. Negative for flank pain and hematuria. Denies vaginal discharge/itchiness Denies exposure to STD Musculoskeletal: Negative for back pain. All other systems reviewed and are negative. PAST MEDICAL HISTORY Diagnosis Date - Abnormal glandular Papanicolaou smear of cervix 2004 Abn. Pap smear (cervix) - ITP (idiopathic thrombocytopenic purpura) 2013 from Bactrim - MRSA cellulitis 2014 Hospitalized. PAST SURGICAL HISTORY Procedure Laterality Date - COLPOSCOPY (VAGINOSCOPY) 2004 Colposcopy - CYSTOSCOPY,URETEROSCOPY,STONE REMV 2004 - ORAL SURGERY PROCEDURE [place] Teeth Removed ALLERGIES Bactrim [Sulfamethoxazole]; Sulfa (Sulfonamide Antibiotics) MEDICATIONS meloxicam (MOBIC) 15 mg tablet Take 15 mg by mouth once daily. tiZANidine HCl (ZANAFLEX) 4 mg capsule Take 4 mg by mouth as needed. fluticasone (FLONASE) 50 mcg/actuation nasal spray Use 2 Sprays in each nostril once daily. Rinse mouth after use. SACCHAROMYCES BOULARDII (PROBIOTIC, S.BOULARDII, ORAL) Take 1 tablet by mouth once daily. Levlgguv-Mm-Dxe-Fe-FA ( VITAMIN) ORAL Tab Take 1 tablet by mouth once daily. cephALEXin (KEFLEX) 500 mg capsule Take 1 capsule by mouth twice daily for 7 days. FOR 10 DAYS phenazopyridine (PYRIDIUM) 200 mg tablet TO BE TAKEN DIRECTED BY MOUTH ONE(1) TABLET THREE TIMES DAILY X 2 DAYS naproxen (NAPROSYN) 500 mg tablet Take 500 mg by mouth twice daily. cyclobenzaprine (FLEXERIL) 10 mg tablet Take 10 mg by mouth three times daily. FAMILY HISTORY Problem Relation Age of Onset - Prostate Cancer Maternal Grandfather - Hypertension Father - Lipids Father Social History Substance Use Topics - Smoking status: Never Smoker - Smokeless tobacco: Never Used - Alcohol use Yes Comment: Rarely Objective Physical Exam Constitutional: She is well-developed, well-nourished, and in no distress. HENT: Head: Normocephalic. Eyes: Conjunctivae are normal. Neck: Normal range of motion. Cardiovascular: Normal rate, regular rhythm and normal heart sounds. Pulmonary/Chest: Effort normal and breath sounds normal. Abdominal: Soft. She exhibits no distension. There is tenderness in the suprapubic area. There is no rebound, no guarding and no CVA tenderness. Skin: Skin is warm and dry. No rash noted. Nursing note and vitals reviewed. ASSESSMENT/PLAN: 1. Pain with urination - ICD9: 788.1, ICD10: R30.9 (primary diagnosis) acute - UA positive for jacobo esterase, hematuria, proteinuria and nitrates - Send urine for culture - Begin treatment with Keflex for 7 days - Patient education for prevention given - UA DIP, URINE (POC) - URINE CULTURE - F/u with pcp in 3-5 days or sooner if symptoms are not improving or worsening 2. Acute cystitis with hematuria - ICD9: 595.0, ICD10: N30.01 Prescription instructions reviewed with patient as applicable. Patient advised if symptoms do not improve or if symptoms worsen sooner, to contact their primary care physician. Potential red flag symptoms discussed with the patient. Reviewed appropriate action plan to take if red flag symptoms occur. Patient agreeable to treatment plan. Julissa Frank, VARSHA.NURSE CHEMICAL DEPENDENCY Referring Provider: SELF [[id number]] Allergies As of Date: 06/29/2018 Noted Allergy Reaction BACTRIM (SULFAMETHOXAZOLE) 06/07/2014 2 - Rash 14 - Other: See Comments Comments: thrombocytopenia SULFA (SULFONAMIDE ANTIBIOTICS) 08/11/2014 14 - Other: See Comments Comments: Thrombocytopenia. Date Reviewed: 06/29/2018 Reviewed by: Julissa Warren (Ict Sales Representative) Sd - Fully Assessed Reason for Visit: Urinary Problem [252] Cmt: pain with urination, abdominal pain x 6 days, low grade fever x today Reason For Visit History Recorded Primary Visit Diagnosis:Pain with urination [R30.9] Other Visit Diagnosis:Acute cystitis with hematuria [N30.01] Order(s):UA DIP, URINE (POC) [1156028] Order #: [id number]. #:[id number] URINE CULTURE [SQURCUL] Order #: [id number] cephALEXin (KEFLEX) 500 mg capsuleTake 1 capsule by mouth twice daily for 7 days. FOR 10 DAYSDisp: 14 capsuleRfl: 0 phenazopyridine (PYRIDIUM) 200 mg tabletTO BE TAKEN DIRECTED BY MOUTH ONE(1) TABLET THREE TIMES DAILY X 2 DAYSDisp: 6 tabletRfl: 0 Prescriptions as of 06/29/2018 Sig: MELOXICAM 15 MG TABLET Take 15 mg by mouth once jeremiah* TIZANIDINE 4 MG CAPSULE Take 4 mg by mouth as needed. FLUTICASONE 50 MCG/ACTUATION * Use 2 Sprays in each nostril * PROBIOTIC (S.BOULARDII) ORAL Take 1 tablet by mouth once d* VITAMIN,CALCIUM,MINE* Take 1 tablet by mouth once d* CEPHALEXIN 500 MG CAPSULE Take 1 capsule by mouth twice* PHENAZOPYRIDINE 200 MG TABLET TO BE TAKEN DIRECTED BY MO* NAPROXEN 500 MG TABLET Take 500 mg by mouth twice da* CYCLOBENZAPRINE 10 MG TABLET Take 10 mg by mouth three aura* Problem List As Of Date 06/29/2018 Noted Resolved Acne [L70.9] INVALID FOR* PCOS (Polycystic Ovarian Syndrome) [E28.2] INVALID FOR* Infertility associated with anovulation [N97.0] INVALID FOR* Cervical radiculopathy [M54.12] INVALID FOR* Other instructions from your clinician: Patient Education for Female Urinary Tract Infections Possible complications: Pyelonehritis Renal abscess Expected course/prognosis: * symptoms resolve within 2-3 days after starting treatment in almost all patients * one-fourth of women with simple UTI experience a second UTI within 6 months, and half at some time during lifetime. * patients with multiple recurrent UTI and no underlying urinary tract abnormality may receive long-term prophylactic antibioitic treatment. Trimethoprim-sulfamethoxazole and nitrofurantoin common used. * women with frequent or intercourse-related UTI should empty bladder immediately before and following intercourse and consider postcoital antibiotic treament Instructions: * Maintain good hydration * Avoid sexual intercourse when symptoms present *Take antibiotic as directed * Return if symptoms not resolved or markedly improved within 48 hours * Return if fever, chills, or flank pain develop * If taking prophylactic antiobiotics, take at bedtime * Take showers instead of tub baths * Avoid feminine hygiene sprays and scented douches * Wipe urethra from front to back Please call or return to the office if you are not feeling better in 5-7 days. You can try taking OTC Uristat (pyridium) if needed for burning. Beware that it will turn your urine orange/red. Prescriptions ordered this encounter Disp Refills Start End CEPHALEXIN 500 MG CAPSULE 14 c* 0 06/29/2018 07/06/2018 Route: ORAL Sig: Take 1 capsule by mouth twice daily for 7 days. FOR 10 DAYS PHENAZOPYRIDINE 200 MG TABLET 6 ta* 0 06/29/2018 Sig: TO BE TAKEN DIRECTED BY MOUTH ONE(1) TABLET THREE TIMES DAILY X 2 DAYS Disposition: Return if symptoms worsen or fail to improve. Follow-up and Disposition History Recorded Encounter Status:Closed by JULISSA FRANK on 06/29/18 EMERGENCY DEPARTMENT Observed: 06/15/2018 Status: F Source: [place] SUMMARY 9:53 AM [facility] REPOSITORY [facility] Medical Records Department [address] [place] [address] Emergency Department Summary 06/15/18 0947 MR#: [id number] Acct: [id number] Name: TUYET DAVIDSON Rep #: [id number] : 1985 32 From: Vinny Fan MD PCP: Chicho Wilson MD Status: REG ER - ER Visit Summary Date of Service: 06/15/18 Chief Complaint: Neck pain History of Present Illness: The patient is a 32 F with known herniated disks in her cervical region presented with left-sided neck pain radiating down her left upper extremity into her hand worse for the past few days. She has an appointment with a neurosurgeon on June 24 but was supposed to go last Wednesday. Her appointment had to be canceled by the office. She denies any new or concerning features. Denies any falls or direct trauma. She has occasional paresthesias in her left upper extremity but no weakness. No fever or chills. Current severity of her symptoms is mild. It is worse when looking left. Physical Examination: She does appear uncomfortable. No fever. She has paraspinal cervical tenderness on the left but no midline tenderness, erythema, or fluctuance. There is normal strength and sensation in both upper extremities. Test Results: Emergency Department Course and Treatment: She did have a recent MRI performed. I do not feel she needs an emergent imaging. She has no evidence of paraspinal or epidural abscess. No midline bony tenderness, erythema, or fluctuance. She has normal strength. Treatment Plan: I will treat her with IM Toradol and Norflex here. She was prescribed a Medrol Dosepak, Mobic, and Zanaflex as well as a few Percocet to use at nighttime. She will keep her neurosurgery appointment and come back if worse. Disposition: Home stable Impression: Cervical radiculopathy, subsequent visit This note was generated with [employer] dictation software. It may contain incorrect words, spelling, and punctuation that were not noted in review of the chart prior to signing ED Disposition - Plan for ED Patient: Chief Complaint: Back Instructions: ED Cervical Radiculopathy Prescriptions: Oxycodone HCl/Acetaminophen [Percocet 5/325] 1 tablet PO Q6H PRN PRN 3 Days #12 tablet PRN Reason: Pain Meloxicam [Mobic] 15 mg PO DAILY #30 tablet MethylPREDNISolone DosePak [Medrol DosePak] 4 mg PO UD #1 box Tizanidine HCl [Zanaflex] 4 mg PO [id number] #30 tablet Referrals: Chicho Wilson MD [Primary Care Provider] - What to do if you have Problems For any increased pain, shortness of breath, bleeding, nausea or vomiting, chest pain, or any unexpected problems, contact your Primary Care Provider. Call [facility] ([phone]) or report to the closest Emergency Room. Call 911 if necessary. 06/15/18 0953 <Electronically signed by Vinny Fan MD> Date Vinny Fan MD Cosigner Signature (If Indicated): Date CC: Chicho Wilson MD SPINE CERVICAL Observed: 05/31/2018 Status: F Source: [place] (ROUTINE) 5:58 PM [facility] REPOSITORY [facility] Imaging Services [address] [place] [address] Spine Cervical (Routine) MR#: [id number] Acct: [id number] Name: TUYET DAVIDSON Rep #: [id number] : 1985 F 32 From: Mark Brewer MD PCP: Chicho Wilson MD Status: REG CLI Study: Spine Cervical (Routine) Date of Exam: 05/31/18 Exam# [id number] Ordering Dr: Chicho Wilson MD STUDY: MRI CERVICAL SPINE WITHOUT CONTRAST REASON FOR EXAM: Female, 32 years old. Left shoulder and arm pain TECHNIQUE: Standardized fat and water weighted pulse sequences were obtained in the sagittal and axial planes. COMPARISON: None FINDINGS: There is no tonsillar ectopia. This a normal cervicomedullary junction. The cervical spinal cord is of normal morphology (except at the C6-C7 level) and signal intensity with no myelomalacia or contusion. The cervical spine itself shows normal alignment and curvature with no acute fractures or dislocations and no abnormal marrow infiltrative processes. There is a normal craniovertebral junction and an intact tectorial membrane. C2-3: Normal endplates. Normal disc height, signal and morphology. Normal central canal and intervertebral neural foramina. C3-4: Normal endplates. Normal disc height, signal and morphology. Normal central canal and intervertebral neural foramina. C4-5: Normal endplates. Normal disc height, signal and morphology. Normal central canal and intervertebral neural foramina. C5-6: Normal endplates. Normal disc height, signal and morphology. Normal central canal and intervertebral neural foramina. C6-7: There is a large 7.7 x 4.7 mm left paracentral disc extrusion with an impressive impingement on the left anterior funiculus of the cord and subsequent narrowing of the left intervertebral foramen with compression on the exiting left C7 nerve root.. C7-T1: Normal endplates. Normal disc height, signal and morphology. Normal central canal and intervertebral neural foramina. MRI/Spine Cervical (Routine) IMPRESSION: A large 7.7 x 4.7 mm left paracentral disc extrusion at the C6-C7 level with an impressive impingement on the left anterior funiculus of the cord and impingement on the exiting left C7 nerve root Electronically Signed: Mark Brewer MD at 0:57 EST Tel , Service support , CC: Chicho Wilson MD [employer] Labourer: Signed PROGRESS Observed: 05/24/2018 Status: COMPLETED Source: [place] 10:10 AM [facility] [place] REPOSITORY HNO ID: [id number] Author: Gualberto Wilson Service: (none) Author Type: Physician Type: Progress Notes Filed: 05/24/2018 10:19 AM Note Text: Chief Complaint Patient presents with: Follow Up: back pain radiating down left arm HPI Tuyet Davidson is a 32 year old female who presents here today for follow-up of recurrent L side upper back pain with L cervical radiculopathy. . The pain radiated down the arm. Thumb/ index/ weakness of L hand. Current episode about a week. Past medical history, appointments, medications, allergies reviewed. Previous Medical History PAST MEDICAL HISTORY Diagnosis Date - Abnormal glandular Papanicolaou smear of cervix 2004 Abn. Pap smear (cervix) - ITP (idiopathic thrombocytopenic purpura) 2013 from Bactrim - MRSA cellulitis 2014 Hospitalized. Previous Surgical History PAST SURGICAL HISTORY Procedure Laterality Date - COLPOSCOPY (VAGINOSCOPY) 2004 Colposcopy - CYSTOSCOPY,URETEROSCOPY,STONE REMV 2004 - ORAL SURGERY PROCEDURE [place]eth Removed Family History FAMILY HISTORY Problem Relation Age of Onset - Prostate Cancer Maternal Grandfather - Hypertension Father - Lipids Father Patient Allergies ALLERGIES Allergen Reactions - Bactrim [Sulfametho* Rash, Other: See Comments thrombocytopenia - Sulfa (Sulfonamide * Other: See Comments Thrombocytopenia. Current Medications Current Outpatient Prescriptions on File Prior to Visit: fluticasone (FLONASE) 50 mcg/actuation nasal spray Use 2 Sprays in each nostril once daily. Rinse mouth after use. SACCHAROMYCES BOULARDII (PROBIOTIC, S.BOULARDII, ORAL) Take 1 tablet by mouth once daily. Tdhsboau-Ur-Znm-Fe-FA ( VITAMIN) ORAL Tab Take 1 tablet by mouth once daily. No current facility-administered medications on file prior to visit. Social History Social History Marital status: Spouse name: Leonard Davidson Years of education: Number of children: 1 Occupational History Occupation Employer Comment RN Social History Main Topics Smoking status: Never Smoker Smokeless tobacco: Never Used Alcohol use: Yes Comment: Rarely Drug use: No Sexual activity: Yes Partners with: Male control/protection: None ROS: General: Feels well, no weight changes, fever, chills. HEENT: No sinus congestion, earache, sore throat. Cardiac: No chest pain, palpitations, shortness of breath Resp: No cough, wheeze. GI: No reflux symptoms, food intolerance, bowel changes. : No urinary frequency, dysuria. MS: No pain or joint complaints. PHYSICAL EXAMINATION BP 150/83 (BP Site: Right Arm, BP Position: Sitting, BP Cuff Size: Large Adult) Pulse 99 Temp 36.7 ?C (98.1 ?F) Resp 16 Ht 162.6 cm (5' 4) Wt 88.5 kg (195 lb 3.2 oz) LMP 05/04/2018 BMI 33.51 kg/m? General: Alert and oriented, no distress, pleasant and cooperative. Heart: Regular, normal S1 and S2, no murmurs, rubs, or gallops Lungs: Clear to auscultation bilaterally Abdomen: Benign Extremities: Feet/ankles without edema, posterior tibial pulses full and symmetrical Neuro: reflexes 1+ / symmetric. L index and 3rd finger weak on electroformer strength. Pain on palpation of L rhomboid muscle. Health Maintenance List DTAP,TDAP,TD(7 - Tdap) due on 03/04/2008 HPV EVERY 5 YEARS due on 2013 PAP EVERY 5 YEARS due on 04/27/2016 INFLUENZA(1) due on 03/26/2018 Data reviewed Prior visits. ER visit. Assessment/Plan: (M54.12) Cervical radiculopathy (primary encounter diagnosis) Comment: recurrent/ persistent. Plan: MRI CERVICAL SPINE WO IVCON With objective neuro deficit (M54.12) Radiculopathy of cervical region Comment: Plan: MRI CERVICAL SPINE WO IVCON No medications selected for refill. RTO: routine f/u Gualberto Wilson MD CNOV Observed: 05/24/2018 Status: COMPLETED Source: [place] 10:00 AM [facility] REPOSITORY Office Visit (WADS) TUYET DAVIDSON ([id number]) 1985 F Date Time Provider Department 05/24/18 10:00 AM GUALBERTO WILSON During your visit today, we recorded the following information about you: Temperature Pulse Respiration Blood pressure 98.1 degrees 99/minute 16/minute 150/83 Weight Height Last Period 88.5 kg 1.626 m 05/04/18 Gualberto Wilson MD 05/24/2018 10:19 AM Signed Chief Complaint Patient presents with: Follow Up: back pain radiating down left arm HPI Tuyet Davidson is a 32 year old female who presents here today for follow-up of recurrent L side upper back pain with L cervical radiculopathy. . The pain radiated down the arm. Thumb/ index/ weakness of L hand. Current episode about a week. Past medical history, appointments, medications, allergies reviewed. Previous Medical History PAST MEDICAL HISTORY Diagnosis Date - Abnormal glandular Papanicolaou smear of cervix 2004 Abn. Pap smear (cervix) - ITP (idiopathic thrombocytopenic purpura) 2013 from Bactrim - MRSA cellulitis 2014 Hospitalized. Previous Surgical History PAST SURGICAL HISTORY Procedure Laterality Date - COLPOSCOPY (VAGINOSCOPY) 2004 Colposcopy - CYSTOSCOPY,URETEROSCOPY,STONE REMV 2004 - ORAL SURGERY PROCEDURE [place] Teeth Removed Family History FAMILY HISTORY Problem Relation Age of Onset - Prostate Cancer Maternal Grandfather - Hypertension Father - Lipids Father Patient Allergies ALLERGIES Allergen Reactions - Bactrim [Sulfametho* Rash, Other: See Comments thrombocytopenia - Sulfa (Sulfonamide * Other: See Comments Thrombocytopenia. Current Medications Current Outpatient Prescriptions on File Prior to Visit: fluticasone (FLONASE) 50 mcg/actuation nasal spray Use 2 Sprays in each nostril once daily. Rinse mouth after use. SACCHAROMYCES BOULARDII (PROBIOTIC, S.BOULARDII, ORAL) Take 1 tablet by mouth once daily. Djwlbxcs-Qq-Rcf-Fe-FA ( VITAMIN) ORAL Tab Take 1 tablet by mouth once daily. No current facility-administered medications on file prior to visit. Social History Social History Marital status: Spouse name: Leonard Davidson Years of education: Number of children: 1 Occupational History Occupation Employer Comment RN Social History Main Topics Smoking status: Never Smoker Smokeless tobacco: Never Used Alcohol use: Yes Comment: Rarely Drug use: No Sexual activity: Yes Partners with: Male control/protection: None ROS: General: Feels well, no weight changes, fever, chills. HEENT: No sinus congestion, earache, sore throat. Cardiac: No chest pain, palpitations, shortness of breath Resp: No cough, wheeze. GI: No reflux symptoms, food intolerance, bowel changes. : No urinary frequency, dysuria. MS: No pain or joint complaints. PHYSICAL EXAMINATION BP 150/83 (BP Site: Right Arm, BP Position: Sitting, BP Cuff Size: Large Adult) Pulse 99 Temp 36.7 ?C (98.1 ?F) Resp 16 Ht 162.6 cm (5' 4) Wt 88.5 kg (195 lb 3.2 oz) LMP 05/04/2018 BMI 33.51 kg/m? General: Alert and oriented, no distress, pleasant and cooperative. Heart: Regular, normal S1 and S2, no murmurs, rubs, or gallops Lungs: Clear to auscultation bilaterally Abdomen: Benign Extremities: Feet/ankles without edema, posterior tibial pulses full and symmetrical Neuro: reflexes 1+ / symmetric. L index and 3rd finger weak on electroformer strength. Pain on palpation of L rhomboid muscle. Health Maintenance List DTAP,TDAP,TD(7 - Tdap) due on 03/04/2008 HPV EVERY 5 YEARS due on 2013 PAP EVERY 5 YEARS due on 04/27/2016 INFLUENZA(1) due on 03/26/2018 Data reviewed Prior visits. ER visit. Assessment/Plan: (M54.12) Cervical radiculopathy (primary encounter diagnosis) Comment: recurrent/ persistent. Plan: MRI CERVICAL SPINE WO IVCON With objective neuro deficit (M54.12) Radiculopathy of cervical region Comment: Plan: MRI CERVICAL SPINE WO IVCON No medications selected for refill. RTO: routine f/u Gualberto Wilson MD Referring Provider: SELF [[id number]] Allergies As of Date: 05/24/2018 Noted Allergy Reaction BACTRIM (SULFAMETHOXAZOLE) 06/07/2014 2 - Rash 14 - Other: See Comments Comments: thrombocytopenia SULFA (SULFONAMIDE ANTIBIOTICS) 08/11/2014 14 - Other: See Comments Comments: Thrombocytopenia. Date Reviewed: 05/24/2018 Reviewed by: Laura Haddad Ma - Fully Assessed Reason for Visit: Follow Up [171] Cmt: back pain radiating down left arm Primary Visit Diagnosis:Cervical radiculopathy [M54.12] Other Visit Diagnosis:Radiculopathy of cervical region [M54.12] Order(s):MRI CERVICAL SPINE CIERRA BOYER [[id number]] Order #: [id number] FUTURE Prescriptions as of 05/24/2018 Sig: NAPROXEN 500 MG TABLET Take 500 mg by mouth twice da* CYCLOBENZAPRINE 10 MG TABLET Take 10 mg by mouth three aura* FLUTICASONE 50 MCG/ACTUATION * Use 2 Sprays in each nostril * PROBIOTIC (S.BOULARDII) ORAL Take 1 tablet by mouth once d* VITAMIN,CALCIUM,MINE* Take 1 tablet by mouth once d* Problem List As Of Date 05/24/2018 Noted Resolved Acne [L70.9] INVALID FOR* PCOS (Polycystic Ovarian Syndrome) [E28.2] INVALID FOR* Infertility associated with anovulation [N97.0] INVALID FOR* Cervical radiculopathy [M54.12] INVALID FOR* Encounter Status:Closed by CHICHO WILSON MD on 05/24/18 12 LEAD ELECTROCARDIOGRAM Observed: 05/20/2018 Status: F Source: [place] 1:23 PM [facility] [place] REPOSITORY [facility] Cardiovascular Services [address] [place] [id number] 12 Lead EKG 05/18/18 1002 MR#: [id number] Acct: [id number] Name: TUYET DAVIDSON Rep #: [id number] : 1985 32 From: Surya Acosta MD Attending Dr: Status: DEP ER Ordering Dr: Mic Mcmahan MD Date: 05/18/18 Location: ED Sex: F C Admitted: Test Reason : BACK PAIN Blood Pressure : / mmHG Vent. Rate : 095 BPM Atrial Rate : 095 BPM P-R Int : 148 ms QRS Dur : 084 ms QT Int : 354 ms P-R-T Axes : 047 025 031 degrees QTc Int : 444 ms Normal sinus rhythm Low voltage QRS (limb leads) Confirmed by KARLA BUCHANAN, SURYA ([id number]), production editor SHANNAN DUVAL ([id number]) on 05/20/2018 1:22:45 PM Referred By: HELGA Confirmed By:SURYA ACOSTA MD 05/20/18 1322 Date Surya Acosta MD CC: Chicho Wilson MD; Mic Mcmahan MD Signed EMERGENCY DEPARTMENT Observed: 05/18/2018 Status: F Source: [place] SUMMARY 6:15 PM [facility] REPOSITORY [facility] Medical Records Department [address] [place] [address] Emergency Department Summary 05/18/18 0953 MR#: [id number] Acct: [id number] Name: TUYET DAVIDSON Rep #: [id number] : 1985 32 From: Mic Mcmahan MD PCP: Chicho Wilson MD Status: DEP ER - ER Visit Summary Date of Service: 05/18/18 Chief Complaint: Upper back pain History of Present Illness: The patient is a [address] Wilson. She reports that she has had episodes of left upper back pain for approximately 2 years ago. States that she had gone to physical therapy and had done quite well until approximately 2 months ago when she began having problems again. She reports the pain became much worse yesterday. It is a sharp pain just medial to her left scapula that is 10 out of 10 severity at worst an 8 out of 10 currently. States the pain radiates up into her neck and into her chest. It is worsened by putting pressure on the area. Leaning backward laying down. Is also worsened by deep breaths. She is taking naproxen and Flexeril without relief. She denies any numbness or weakness. She has no pain with movement of her shoulder. She denies any recent trauma. No fall, MVA, or change in activity. Physical Examination: Vitals: Stable. Afebrile. General: Well-nourished and well-developed. Head: Normocephalic atraumatic. Neck: Supple, no lymphadenopathy. No JVD. Nontender. Cardiovascular: Regular rate and rhythm. No murmurs. Respiratory: No respiratory distress. Clear to auscultation bilaterally. Abdominal: Soft, nontender, nondistended, normal bowel sounds. No guarding, rebound, or peritoneal signs. Back: No vertebral tenderness. Moderate tenderness palpation to the rhomboid muscles on the left.. Extremities: Nontender, no edema. Skin: Normal color, no rash. Neurologic: Alert and oriented 3. Cranial nerves II through XII are intact. Normal strength and sensation. Psych: Normal affect. Test Results: EKG is sinus at [address] changes. CBC is more for a white count of 4.2, H AND H of 11.2 and 35.3. Chem-7 is normal. Troponin is negative. D-dimer is negative. Parents test is negative. Chest x-ray shows no acute disease. Emergency Department Course and Treatment: Patient had an IV placed. She was given morphine, Toradol, and Zofran IV. She is resting comfortably. Treatment Plan: An OARRS report was obtained which was negative. Patient will be discharged with naproxen, [place], and Flexeril. Instructed to follow- up her primary care physician in 3-5 days if not improving. Return to the emergency department for any worsening symptoms. Disposition: To home in improved and stable condition. Impression: 1. Upper back pain. 2. Atypical chest pain. This note was generated with [employer] dictation software. It may contain incorrect words, spelling, and punctuation that were not noted in review of the chart prior to signing ED Disposition - Plan for ED Patient: Chief Complaint: Back Instructions: ED Neck Back Pain General Prescriptions: Hydrocodone Bitart/Apap 5-325 [[place] 5MG-325MG] 1 tablet PO Q4H PRN PRN 2 Days #10 tablet PRN Reason: Pain Naproxen [Naprosyn] 500 mg PO BID #14 tablet Cyclobenzaprine [Flexeril] 10 mg PO TID PRN #20 tablet PRN Reason: Muscle Spasm Referrals: Chicho Wilson MD [Primary Care Provider] - 3-5 Days if not improving What to do if you have Problems For any increased pain, shortness of breath, bleeding, nausea or vomiting, chest pain, or any unexpected problems, contact your Primary Care Provider. Call [employer] [facility] ([phone]) or report to the closest Emergency Room. Call 911 if necessary. 05/18/18 1815 <Electronically signed by Mic Mcmahan MD> Date Mic Mcmahan MD Cosigner Signature (If Indicated): Date CC: Chicho Wilson MD CBC W/DIFF, AUTOMATED Collected: 05/18/2018 Status: F Source: [place] 10:10 AM [facility] REPOSITORY TYPE CODE TESTS RESULT OUT OF RANGE REFERENCE UNITS LAB L100.1000 4.4-11.0 K/mm3 Low WBC 4.2 LAB L100.1200 4.2-5.4 M/mm3 Normal RBC 4.48 LAB L100.1300 12.0-15.0 g/dl Low HGB 11.2 LAB L100.1400 37-47 % Low HCT 35.3 LAB L100.1500 81-99 fL Low MCV 78.8 LAB L100.1600 27.0-32.0 pg Low MCH 25.0 LAB L100.1700 32-36 g/gl Low MCHC 31.7 LAB L100.1810 11.6-14.6 % High RDW CV 15.8 LAB L100.1820 35.1-43.9 fl High RDW SD 44.6 LAB L100.1900 150-450 K/mm3 Normal PLT 271 LAB L100.2000 6.2-12.0 fl Normal MPV 9.2 LAB L100.2100 47-70 % Normal NEUT% 54.5 LAB L100.2200 19-41 % Normal LY% 33.3 LAB L100.2300 0-10 % Normal MONO% 8.0 LAB L100.2400 0-5 % Normal EO% 3.1 LAB L100.2500 0-1 % Normal BASO% 0.9 LAB L100.2550 0.0-0.9 % Normal IM GRAN % 0.200 Result Comment: IG% - Immature Granulocytes (promyelocytes, myelocytes and metamyelocytes) > 1% indicates that a LEFT SHIFT is Present. LAB L100.2620 2.0-7.7 X10 3/uL Normal Absolute Neut 2.3 LAB L100.2720 0.83-4.51 X10 3/ul Normal Absolute Lymph 1.41 Performed By: #### L100.0100 #### [facility] [address] [place], [address] D-DIMER QUANTITATIVE Collected: 05/18/2018 Status: F Source: [place] (DVT/PE) 10:10 AM [facility] REPOSITORY TYPE CODE TESTS RESULT OUT OF RANGE REFERENCE UNITS LAB L300.8000 0.27-0.49 FEU/ug/m Low D-DIMER < 0.27 QUANT Result Comment: NORMAL D-Dimer level (<0.50) indicates no DVT or PE. Performed By: #### L300.8000 #### [facility] [address] [place], [place], [id number] BASIC METABOLIC Collected: 05/18/2018 Status: F Source: [place] PROFILE (BMP) 10:10 AM [facility] REPOSITORY TYPE CODE TESTS RESULT OUT OF RANGE REFERENCE UNITS LAB L501.0100 74-106 mg/dL Normal GLU 98 Result Comment: Please note revised GLUCOSE reference range effective 2017. LAB L501.1000 7-18 mg/dL Normal BUN 13 LAB L501.1100 0.55-1.02 mg/dL Normal CREAT,SERUM 0.89 Result Comment: The validity of the calculated GFR AND GFRAA in patients over 70 years has not been determined. Clinical correlation is essential. LAB L501.1110 >60 mL/min Normal EST GFR 77 Result Comment: Non- GFR Calc LAB L501.1115 >60 mL/min Normal EST GFR - AA 93 Result Comment: GFR Calc LAB L501.1255 ml/min Normal Estimated CRCL 76.91 LAB L501.1300 10-20 RATIO Normal BUN/CRE 14.6 LAB L501.2200 8.5-10 mg/dL Normal .1 CA 8.5 LAB L501.5300 136-14 mmol/L Normal 5 NA 141 LAB L501.5600 3.5-5. mmol/L Normal 1 K 3.9 LAB L501.5900 98-107 mmol/L Normal CL 106 LAB L501.6100 21.0-3 mmol/L Normal 2.0 CO2 25.0 LAB L501.6200 5-15 Normal GAP 10 Performed By: #### L500.2500, L501.4010 #### [facility] [address] [place], [address] TROPONIN-I Collected: 05/18/2018 Status: F Source: [place] 10:10 AM [facility] REPOSITORY TYPE CODE TESTS RESULT OUT OF RANGE REFERENCE UNITS LAB L501.4010 <0.045 ng/mL Normal < 0.015 TROPONIN-I Result Comment: TROPONIN-I EXPECTED VALUES <0.045 Negative 0.045 - 0.590 Consistent with Cardiac Damage > OR = 0.600 Critical Value Not every elevated troponin is indicative of AR. These values should be used with clinical judgement in examining the patient's clinical picture for diagnosis. To establish a diagnosis of AR versus myocardial injury, there must be a demonstrated rise and/or fall in the troponin values, in addition to ischemic symptoms, EKG changes, new regional wall motion abnormality, and/or angiographical evidence. PLEASE NOTE: REFERENCE RANGES EDITED 17 Performed By: #### L500.2500, L501.4010 #### [facility] [address] [place], [place], [address] ,SERUM,HCG QUALI. Collected: Status: F Source: [place] 05/18/2018 10:10 AM [facility] REPOSITORY TYPE CODE TESTS RESULT OUT OF REFERENCE UNITS RANGE LAB L700.6700 =>Qualitative mIU/mL Normal HCG Qual < 1 triggr LAB L700.7000 0-9 Nonpreg Negative Normal HCGSQUAL NEGATIVE Performed By: #### L700.6800 #### [facility] [address] [place] [place], [address] CHEST 1 VIEW Observed: 05/18/2018 Status: F Source: [place] (PORTABLE) 9:52 AM [facility] REPOSITORY [facility] Imaging Services [address] [address] [place] [address] Chest 1 View (Portable) MR#: [id number] Acct: [id number] Name: TUYET DAVIDSON Rep #: [id number] : 1985 F 32 From: Aparna Zapata MD PCP: Chicho Wilson MD Status: DEP ER Study: Chest 1 View (Portable) Date of Exam: 05/18/18 Exam# [id number] Ordering Dr: Mic Mcmahan MD STUDY: X-RAY CHEST REASON FOR EXAM: Female, 32 years old. Chest pain. TECHNIQUE: 1 view COMPARISON: Prior chest radiograph of August 24, 2005 FINDINGS: The lungs are clear and expanded. There is no demonstrated pleural abnormality. Normal size heart. Normal mediastinum and marli. Normal visualized pulmonary arteries. Normal visualized aortic arch and descending thoracic aorta. Normal visualized thoracic spine. Normal visualized ribs, clavicles, and shoulders. There is no demonstrated abnormality of the visualized soft tissue structures of the upper abdomen. RAD/Chest 1 View (Portable) IMPRESSION: Normal x-ray examination of the chest. Electronically Signed: Aparna Zapata MD at 16:34 EDT , Service support , CC: Chicho Wilson MD; Mic Mcmahan MD [employer] Labourer: Signed PROGRESS Observed: 03/22/2018 Status: COMPLETED Source: [place] 10:53 AM [facility] [place] REPOSITORY HNO ID: [id number] Author: Delmi (Regine) Older Service: (none) Author Type: Nurse Practitioner Type: Progress Notes Filed: 03/22/2018 11:38 AM Note Text: CC: Patient presents with: Upper back and neck pain: x 4 days-has had this before HPI Tuyet Davidson is a 32 year old female who presents with low back pain with recent onset four days ago. Located in left neck with radiation to left trapezius muscle. Described as sharp aching Cause: No specific injury patient is aware of, thinks she may have slept on it wrong. Was dancing at a concert the night before as well. Pain is aggravated by turning head and bending neck. Also when she reaches behind her to fix hair Denies arm weakness, numbness and tingling. Treatments tried: Naproxen with moderate relief. Past medical history is significant for cervical radiculopathy last year. She was referred to PT, therapist treated with deep tissue ultrasound and pain resolved after two treatments. PAST MEDICAL HISTORY Diagnosis Date - Abnormal glandular Papanicolaou smear of cervix 2004 Abn. Pap smear (cervix) - ITP (idiopathic thrombocytopenic purpura) 2013 from Bactrim - MRSA cellulitis 2013 Hospitalized. PAST SURGICAL HISTORY Procedure Laterality Date - COLPOSCOPY (VAGINOSCOPY) 2004 Colposcopy - CYSTOSCOPY,URETEROSCOPY,STONE REMV 2004 - ORAL SURGERY PROCEDURE [place] Teeth Removed ALLERGIES Bactrim [Sulfamethoxazole]; Sulfa (Sulfonamide Antibiotics) MEDICATIONS fluticasone (FLONASE) 50 mcg/actuation nasal spray Use 2 Sprays in each nostril once daily. Rinse mouth after use. SACCHAROMYCES BOULARDII (PROBIOTIC, S.BOULARDII, ORAL) Take 1 tablet by mouth once daily. Zqstvkyt-Qb-Mpp-Fe-FA ( VITAMIN) ORAL Tab Take 1 tablet by mouth once daily. FAMILY HISTORY Problem Relation Age of Onset - Prostate Cancer Maternal Grandfather - Hypertension Father - Lipids Father Social History Substance Use Topics - Smoking status: Former Smoker Packs/day: 0.50 Years: 0.50 - Smokeless tobacco: Never Used Comment: socially in high schoole - Alcohol use Yes Comment: Rarely REVIEW OF SYSTEMS General: no fevers, no chills, no night sweats and no fatigue Skin: Negative for lesions, rash, and itching PHYSICAL EXAM BP 120/87 Pulse 82 Temp 37.1 ?C (98.8 ?F) (Temporal Artery) Wt 88 kg (194 lb) SpO2 98% BMI 33.30 kg/m? General Appearance: well appearing, in no acute distress, alert Skin: No rashes or lesions Neck: Normal to inspection. No tenderness with palpation of cervical spine or with palpation of Paraspinal and trapezius muscles. ROM: Full but painful ROM except no pain with flexion. Reflexes:2+ and symmetric. Muscle strength: 5/5 bilaterally. ASSESSMENT/PLAN: 1. Cervicalgia - ICD9: 723.1, ICD10: M54.2 Likely muscle strain. No alarm symptoms or exam findings. - CONSULT TO PHYSICAL THERAPY per patient request - Continue with Naproxen. Can also try topical analgesics, ice, heat, stretching and massage - Follow-up in office as needed for persistent or worsening pain Prescription instructions reviewed with patient as applicable. Potential red flag symptoms discussed with the patient. Reviewed appropriate action plan to take if red flag symptoms occur. Patient agreeable to treatment plan. Delmi Wiseman APRN.CNP CNOV Observed: 03/22/2018 Status: COMPLETED Source: [place] 10:40 AM [facility] REPOSITORY Office Visit (INTMWS) TUYET DAVIDSON ([id number]) 1985 F Date Time Provider Department 03/22/18 10:40 AM DELMI WISEMAN (REGINE) INTMWS During your visit today, we recorded the following information about you: Temperature Pulse Blood pressure Weight 98.8 degrees 82/minute 120/87 88 kg Delmi Wiseman APRN.CNP 03/22/2018 11:38 AM Signed CC: Patient presents with: Upper back and neck pain: x 4 days-has had this before HPI Tuyet Davidson is a 32 year old female who presents with low back pain with recent onset four days ago. Located in left neck with radiation to left trapezius muscle. Described as sharp aching Cause: No specific injury patient is aware of, thinks she may have slept on it wrong. Was dancing at a concert the night before as well. Pain is aggravated by turning head and bending neck. Also when she reaches behind her to fix hair Denies arm weakness, numbness and tingling. Treatments tried: Naproxen with moderate relief. Past medical history is significant for cervical radiculopathy last year. She was referred to PT, therapist treated with deep tissue ultrasound and pain resolved after two treatments. PAST MEDICAL HISTORY Diagnosis Date - Abnormal glandular Papanicolaou smear of cervix 2004 Abn. Pap smear (cervix) - ITP (idiopathic thrombocytopenic purpura) 2014 from Bactrim - MRSA cellulitis 2014 Hospitalized. PAST SURGICAL HISTORY Procedure Laterality Date - COLPOSCOPY (VAGINOSCOPY) 2004 Colposcopy - CYSTOSCOPY,URETEROSCOPY,STONE REMV 2004 - ORAL SURGERY PROCEDURE [place] Removed ALLERGIES Bactrim [Sulfamethoxazole]; Sulfa (Sulfonamide Antibiotics) MEDICATIONS fluticasone (FLONASE) 50 mcg/actuation nasal spray Use 2 Sprays in each nostril once daily. Rinse mouth after use. SACCHAROMYCES BOULARDII (PROBIOTIC, S.BOULARDII, ORAL) Take 1 tablet by mouth once daily. Xowlevkl-Bk-Tke-Fe-FA ( VITAMIN) ORAL Tab Take 1 tablet by mouth once daily. FAMILY HISTORY Problem Relation Age of Onset - Prostate Cancer Maternal Grandfather - Hypertension Father - Lipids Father Social History Substance Use Topics - Smoking status: Former Smoker Packs/day: 0.50 Years: 0.50 - Smokeless tobacco: Never Used Comment: socially in high schoole - Alcohol use Yes Comment: Rarely REVIEW OF SYSTEMS General: no fevers, no chills, no night sweats and no fatigue Skin: Negative for lesions, rash, and itching PHYSICAL EXAM BP 120/87 Pulse 82 Temp 37.1 ?C (98.8 ?F) (Temporal Artery) Wt 88 kg (194 lb) SpO2 98% BMI 33.30 kg/m? General Appearance: well appearing, in no acute distress, alert Skin: No rashes or lesions Neck: Normal to inspection. No tenderness with palpation of cervical spine or with palpation of Paraspinal and trapezius muscles. ROM: Full but painful ROM except no pain with flexion. Reflexes:2+ and symmetric. Muscle strength: 5/5 bilaterally. ASSESSMENT/PLAN: 1. Cervicalgia - ICD9: 723.1, ICD10: M54.2 Likely muscle strain. No alarm symptoms or exam findings. - CONSULT TO PHYSICAL THERAPY per patient request - Continue with Naproxen. Can also try topical analgesics, ice, heat, stretching and massage - Follow-up in office as needed for persistent or worsening pain Prescription instructions reviewed with patient as applicable. Potential red flag symptoms discussed with the patient. Reviewed appropriate action plan to take if red flag symptoms occur. Patient agreeable to treatment plan. Delmi Wiseman APRN.CNP Allergies As of Date: 03/22/2018 Noted Allergy Reaction BACTRIM (SULFAMETHOXAZOLE) 06/07/2014 2 - Rash 14 - Other: See Comments Comments: thrombocytopenia SULFA (SULFONAMIDE ANTIBIOTICS) 08/11/2014 14 - Other: See Comments Comments: Thrombocytopenia. Date Reviewed: 03/22/2018 Reviewed by: Marlee Ricks News Photographer - Fully Assessed Reason for Visit: Upper back and neck pain [Other] Cmt: x 4 days-has had this before Reason For Visit History Recorded Primary Visit Diagnosis:Cervicalgia [M54.2] Order(s):CONSULT TO PHYSICAL THERAPY [9032] Order #: [id number]: 1 Prescriptions as of 03/22/2018 Sig: FLUTICASONE 50 MCG/ACTUATION * Use 2 Sprays in each nostril * PROBIOTIC (S.BOULARDII) ORAL Take 1 tablet by mouth once d* VITAMIN,CALCIUM,MINE* Take 1 tablet by mouth once d* Problem List As Of Date 03/22/2018 Noted Resolved Acne [L70.9] INVALID FOR* PCOS (Polycystic Ovarian Syndrome) [E28.2] INVALID FOR* Infertility associated with anovulation [N97.0] INVALID FOR* Cervical radiculopathy [M54.12] INVALID FOR* Encounter Status:Closed by DELMI WISEMAN CNP on 03/22/18 PROGRESS Observed: 01/10/2018 Status: COMPLETED Source: [place] 12:53 PM [facility] HNO ID: [id number] Author: Karina Trinidad Service: (none) Author Type: Nurse Practitioner Type: Progress Notes Filed: 01/10/2018 1:05 PM Note Text: Subjective HPI HPI Tuyet Davidson is a 32 year old female who presents today for CC of sinus pain for 2 weeks, tongue . Has tried otc medications. Symptoms are worsened by nothing. Risk factors hx of sinusitis. Denies possibility of being . Nonsmoker. .Patient presents with: Sinus Infection,frequent/recurring PAST MEDICAL HISTORY Diagnosis Date - Abnormal glandular Papanicolaou smear of cervix 2004 Abn. Pap smear (cervix) - ITP (idiopathic thrombocytopenic purpura) 2013 from Bactrim - MRSA cellulitis 2014 Hospitalized. PAST SURGICAL HISTORY Procedure Laterality Date - COLPOSCOPY (VAGINOSCOPY) 2004 Colposcopy - CYSTOSCOPY,URETEROSCOPY,STONE REMV 2004 - ORAL SURGERY PROCEDURE [place] Removed ALLERGIES Bactrim [Sulfamethoxazole]; Sulfa (Sulfonamide Antibiotics) MEDICATIONS SACCHAROMYCES BOULARDII (PROBIOTIC, S.BOULARDII, ORAL) Take 1 tablet by mouth once daily. Bidrmmti-Wj-Iqr-Fe-FA ( VITAMIN) ORAL Tab Take 1 tablet by mouth once daily. FAMILY HISTORY Problem Relation Age of Onset - Prostate Cancer Maternal Grandfather - Hypertension Father - Lipids Father Social History Substance Use Topics - Smoking status: Former Smoker Packs/day: 0.50 Years: 0.50 - Smokeless tobacco: Never Used Comment: socially in high schoole - Alcohol use Yes Comment: Rarely Review of Systems Constitutional: Negative for chills, fever and weight loss. HENT: Positive for congestion and sinus pain. Negative for ear pain, nosebleeds and sore throat. Respiratory: Negative for cough, shortness of breath and wheezing. Cardiovascular: Negative for chest pain. Musculoskeletal: Negative for neck pain. Skin: Negative for itching and rash. Objective Blood pressure 130/80, pulse 66, temperature 36.8 ?C (98.3 ?F), temperature source Left Tympanic, resp. rate 16, weight 87.5 kg (193 lb). Physical Exam Constitutional: She is oriented to person, place, and time and well-developed, well-nourished, and in no distress. Non-toxic appearance. She does not have a sickly appearance. No distress. HENT: Head: Normocephalic and atraumatic. Right Ear: Hearing, tympanic membrane, external ear and ear canal normal. Left Ear: Hearing, tympanic membrane, external ear and ear canal normal. Nose: Right sinus exhibits maxillary sinus tenderness. Left sinus exhibits maxillary sinus tenderness. Mouth/Throat: Uvula is midline, oropharynx is clear and moist and mucous membranes are normal. Eyes: Conjunctivae and lids are normal. Pupils are equal, round, and reactive to light. Right eye exhibits no discharge. Left eye exhibits no discharge. No scleral icterus. Neck: Trachea normal and normal range of motion. Neck supple. Cardiovascular: Normal rate, regular rhythm and normal heart sounds. Pulmonary/Chest: Effort normal and breath sounds normal. Lymphadenopathy: She has no cervical adenopathy. Neurological: She is alert and oriented to person, place, and time. Skin: No rash noted. She is not diaphoretic. ASSESSMENT/PLAN: 1. Bacterial sinusitis - ICD9: 473.9, 041.9, ICD10: J32.9, B96.89 - Will begin treatment with Augmentin 875 mg PO BID for 10 days - Supportive care with plenty of fluids, rest, and analgesia prn. - Follow up in 3-5 days if symptoms persist or worsen. - AMOXICILLIN 875 MG-POTASSIUM CLAVULANATE 125 MG TABLET - FLUTICASONE 50 MCG/ACTUATION NASAL SPRAY,SUSPENSION Prescription instructions reviewed with patient as applicable. Patient advised if symptoms do not improve or if symptoms worsen sooner, to contact the office for further evaluation by their primary care physician. Potential red flag symptoms discussed with the patient. Reviewed appropriate action plan to take if red flag symptoms occur. Patient agreeable to treatment plan. Karina Trinidad APRN.CNP CNOV Observed: 01/10/2018 Status: COMPLETED Source: [place] 12:30 PM [facility] REPOSITORY Office Visit (WSTR) TUYET DAVIDSON ([id number]) 1985 F Date Time Provider Department 01/10/18 12:30 PM KARINA TRINIDAD (REGINE) WSTR During your visit today, we recorded the following information about you: Temperature Pulse Respiration Blood pressure 98.3 degrees 66/minute 16/minute 130/80 Weight 87.5 kg Karina Trinidad APRN.CNP 01/10/2018 1:05 PM Signed Subjective HPI HPI Tuyet Davidson is a 32 year old female who presents today for CC of sinus pain for 2 weeks, tongue . Has tried otc medications. Symptoms are worsened by nothing. Risk factors hx of sinusitis. Denies possibility of being . Nonsmoker. .Patient presents with: Sinus Infection,frequent/recurring PAST MEDICAL HISTORY Diagnosis Date - Abnormal glandular Papanicolaou smear of cervix 2004 Abn. Pap smear (cervix) - ITP (idiopathic thrombocytopenic purpura) 2014 from Bactrim - MRSA cellulitis 2014 Hospitalized. PAST SURGICAL HISTORY Procedure Laterality Date - COLPOSCOPY (VAGINOSCOPY) 2004 Colposcopy - CYSTOSCOPY,URETEROSCOPY,STONE REMV 2004 - ORAL SURGERY PROCEDURE [place] Removed ALLERGIES Bactrim [Sulfamethoxazole]; Sulfa (Sulfonamide Antibiotics) MEDICATIONS SACCHAROMYCES BOULARDII (PROBIOTIC, S.BOULARDII, ORAL) Take 1 tablet by mouth once daily. Dtufzyuv-Uh-Yfj-Fe-FA ( VITAMIN) ORAL Tab Take 1 tablet by mouth once daily. FAMILY HISTORY Problem Relation Age of Onset - Prostate Cancer Maternal Grandfather - Hypertension Father - Lipids Father Social History Substance Use Topics - Smoking status: Former Smoker Packs/day: 0.50 Years: 0.50 - Smokeless tobacco: Never Used Comment: socially in high schoole - Alcohol use Yes Comment: Rarely Review of Systems Constitutional: Negative for chills, fever and weight loss. HENT: Positive for congestion and sinus pain. Negative for ear pain, nosebleeds and sore throat. Respiratory: Negative for cough, shortness of breath and wheezing. Cardiovascular: Negative for chest pain. Musculoskeletal: Negative for neck pain. Skin: Negative for itching and rash. Objective Blood pressure 130/80, pulse 66, temperature 36.8 ?C (98.3 ?F), temperature source Left Tympanic, resp. rate 16, weight 87.5 kg (193 lb). Physical Exam Constitutional: She is oriented to person, place, and time and well-developed, well-nourished, and in no distress. Non-toxic appearance. She does not have a sickly appearance. No distress. HENT: Head: Normocephalic and atraumatic. Right Ear: Hearing, tympanic membrane, external ear and ear canal normal. Left Ear: Hearing, tympanic membrane, external ear and ear canal normal. Nose: Right sinus exhibits maxillary sinus tenderness. Left sinus exhibits maxillary sinus tenderness. Mouth/Throat: Uvula is midline, oropharynx is clear and moist and mucous membranes are normal. Eyes: Conjunctivae and lids are normal. Pupils are equal, round, and reactive to light. Right eye exhibits no discharge. Left eye exhibits no discharge. No scleral icterus. Neck: Trachea normal and normal range of motion. Neck supple. Cardiovascular: Normal rate, regular rhythm and normal heart sounds. Pulmonary/Chest: Effort normal and breath sounds normal. Lymphadenopathy: She has no cervical adenopathy. Neurological: She is alert and oriented to person, place, and time. Skin: No rash noted. She is not diaphoretic. ASSESSMENT/PLAN: 1. Bacterial sinusitis - ICD9: 473.9, 041.9, ICD10: J32.9, B96.89 - Will begin treatment with Augmentin 875 mg PO BID for 10 days - Supportive care with plenty of fluids, rest, and analgesia prn. - Follow up in 3-5 days if symptoms persist or worsen. - AMOXICILLIN 875 MG-POTASSIUM CLAVULANATE 125 MG TABLET - FLUTICASONE 50 MCG/ACTUATION NASAL SPRAY,SUSPENSION Prescription instructions reviewed with patient as applicable. Patient advised if symptoms do not improve or if symptoms worsen sooner, to contact the office for further evaluation by their primary care physician. Potential red flag symptoms discussed with the patient. Reviewed appropriate action plan to take if red flag symptoms occur. Patient agreeable to treatment plan. Karina Trinidad APRN.REGINE Trinidad APRN.REGINE 01/10/2018 1:02 PM Signed SINUSITIS: You have sinusitis, an infection of the sinus cavities around the nose. This infection usually follows a respiratory illness; it can also be related to allergies, changes in atmospheric pressure (flying, diving), or anything that blocks nasal drainage. Symptoms include: headache, facial pain, a thick nasal discharge, congestion, and cough. The treatment includes antibiotic therapy, increasing oral fluids, and pain medication if needed. Nose spray decongestants (Afrin, Desmond- Synephrine) and oral decongestants may be needed to reduce congestion and drainage. Rarely the sinus must be irrigated to remove the infected material. Sinusitis can lead to serious complications by spreading to other areas such as the eye or brain. Please call your doctor or return here right away if you have any of the following more serious symptoms: - Unusual swelling around the eye or trouble seeing. - Increasing pain, severe headache, or toothache. - Nausea, vomiting, or unusual drowsiness. Referring Provider: SELF [[id number]] Allergies As of Date: 01/10/2018 Noted Allergy Reaction BACTRIM (SULFAMETHOXAZOLE) 06/07/2014 2 - Rash 14 - Other: See Comments Comments: thrombocytopenia SULFA (SULFONAMIDE ANTIBIOTICS) 08/11/2014 14 - Other: See Comments Comments: Thrombocytopenia. Date Reviewed: 01/10/2018 Reviewed by: Karina Trinidad - Fully Assessed Reason for Visit: Sinus Infection,frequent/recurring [1167] Primary Visit Diagnosis:Bacterial sinusitis [J32.9, B96.89] Order(s):amoxicillin-clavulanic acid (AUGMENTIN) 875-125 mg per tabletTake 1 tablet by mouth twice daily for 10 days.Disp: 20 tabletRfl: 0 fluticasone (FLONASE) 50 mcg/actuation nasal sprayUse 2 Sprays in each nostril once daily. Rinse mouth after use.Disp: 1 BottleRfl: 0 Prescriptions as of 01/10/2018 Sig: PROBIOTIC (S.BOULARDII) ORAL Take 1 tablet by mouth once d* VITAMIN,CALCIUM,MINE* Take 1 tablet by mouth once d* AMOXICILLIN 875 MG-POTASSIUM * Take 1 tablet by mouth twice * FLUTICASONE 50 MCG/ACTUATION * Use 2 Sprays in each nostril * Problem List As Of Date 01/10/2018 Noted Resolved Acne [L70.9] INVALID FOR* PCOS (Polycystic Ovarian Syndrome) [E28.2] INVALID FOR* Infertility associated with anovulation [N97.0] INVALID FOR* Cervical radiculopathy [M54.12] INVALID FOR* Other instructions from your clinician: SINUSITIS: You have sinusitis, an infection of the sinus cavities around the nose. This infection usually follows a respiratory illness; it can also be related to allergies, changes in atmospheric pressure (flying, diving), or anything that blocks nasal drainage. Symptoms include: headache, facial pain, a thick nasal discharge, congestion, and cough. The treatment includes antibiotic therapy, increasing oral fluids, and pain medication if needed. Nose spray decongestants (Afrin, Desmond-Synephrine) and oral decongestants may be needed to reduce congestion and drainage. Rarely the sinus must be irrigated to remove the infected material. Sinusitis can lead to serious complications by spreading to other areas such as the eye or brain. Please call your doctor or return here right away if you have any of the following more serious symptoms: - Unusual swelling around the eye or trouble seeing. - Increasing pain, severe headache, or toothache. - Nausea, vomiting, or unusual drowsiness. Prescriptions ordered this encounter Disp Refills Start End AMOXICILLIN 875 MG-POTASSIUM CLAVULA* 20 t* 0 01/10/2018 01/20/2018 Route: ORAL Sig: Take 1 tablet by mouth twice daily for 10 days. FLUTICASONE 50 MCG/ACTUATION NASAL S* 1 Boo* 0 01/10/2018 Route: EACH NOSTRIL Sig: Use 2 Sprays in each nostril once daily. Rinse mouth after use. Encounter Status:Closed by KARINA TRINIDAD CNP on 01/10/18 PROGRESS Observed: 10/12/2017 Status: COMPLETED Source: [place] 10:51 AM [facility] [place] REPOSITORY HNO ID: [id number] Author: Rita (Regine) VARSHA Taylor.REGINE Service: (none) Author Type: Nurse Practitioner Type: Progress Notes Filed: 10/12/2017 11:03 AM Note Text: Subjective The history is provided by the patient. No sign language instructor was used. HPI Tuyet Davidson is a 32 year old female who presents today for CC of sinus congestion and pressure This started 2 weeks ago, and wont go away. She also has a sore on her tongue that started 4 days ago, and enlarged lymph node on left side Symptoms are worsened by leaning forward. She has tried tylenol ibuprofen, sudafed, and mucinex without relief. Risk factors family members ill PMH sinusitis BP 138/88 (BP Site: Left Arm, BP Position: Sitting, BP Cuff Size: Large Adult) Pulse 96 Temp 37.1 ?C (98.8 ?F) (Left Tympanic) Resp 16 Wt 89.8 kg (198 lb) LMP 10/02/2017 (Exact Date) SpO2 99% BMI 33.99 kg/m2 ALLERGIES Allergen Reactions - Bactrim [Sulfametho* Rash, Other: See Comments thrombocytopenia - Sulfa (Sulfonamide * Other: See Comments Thrombocytopenia. ACTIVE PROBLEM LIST Acne Pcos (Polycystic Ovarian Syndrome) Infertility Associated With Anovulation Cervical Radiculopathy Family History Problem Relation Age of Onset - Prostate Cancer Maternal Grandfather - Hypertension Father - Lipids Father Social History Marital status: Spouse name: Leonard Davidson Years of education: Number of children: 1 Occupational History Occupation Employer Comment RN Social History Main Topics Smoking status: Former Smoker Packs/day: 0.50 Years: 0.50 Smokeless status: Never Used Comment: socially in high schoole Alcohol use: Yes Comment: Rarely Drug use: No Sexual activity: Yes Partners with: Male control/protection: None Review of Systems Constitutional: Negative. Negative for chills, fever and malaise/fatigue. HENT: Positive for congestion and sinus pain. Negative for ear pain and sore throat. Post nasal drainage Respiratory: Negative for cough, sputum production, shortness of breath and wheezing. Cardiovascular: Negative for chest pain. Musculoskeletal: Negative for myalgias. Skin: Negative for rash. Neurological: Negative for headaches. Objective Physical Exam Constitutional: She is well-developed, well-nourished, and in no distress. HENT: Head: Normocephalic and atraumatic. Right Ear: External ear and ear canal normal. Tympanic membrane is bulging. Tympanic membrane is not injected, not erythematous and not retracted. A middle ear effusion (serous) is present. Left Ear: External ear and ear canal normal. Tympanic membrane is bulging. Tympanic membrane is not injected, not erythematous and not retracted. A middle ear effusion (serous) is present. Nose: Mucosal edema and rhinorrhea present. Right sinus exhibits no maxillary sinus tenderness and no frontal sinus tenderness. Left sinus exhibits maxillary sinus tenderness. Left sinus exhibits no frontal sinus tenderness. Mouth/Throat: Uvula is midline and mucous membranes are normal. No oropharyngeal exudate, posterior oropharyngeal edema, posterior oropharyngeal erythema or tonsillar abscesses. Clear PND Eyes: Conjunctivae and EOM are normal. Pupils are equal, round, and reactive to light. Neck: Normal range of motion. Cardiovascular: Normal rate, regular rhythm and normal heart sounds. Pulmonary/Chest: Effort normal and breath sounds normal. No respiratory distress. She has no decreased breath sounds. She has no wheezes. She has no rhonchi. She has no rales. Lymphadenopathy: Head (right side): No submental, no submandibular, no tonsillar, no preauricular and no posterior auricular adenopathy present. Head (left side): No submental, no submandibular, no tonsillar, no preauricular and no posterior auricular adenopathy present. She has cervical adenopathy. Right cervical: No posterior cervical adenopathy present. Left cervical: Superficial cervical adenopathy present. No posterior cervical adenopathy present. Right: No supraclavicular adenopathy present. Left: No supraclavicular adenopathy present. Skin: Skin is warm and dry. Psychiatric: Affect normal. Nursing note and vitals reviewed. ASSESSMENT/PLAN: 1. Acute non-recurrent maxillary sinusitis - ICD9: 461.0, ICD10: J01.00 (primary diagnosis) - Will begin treatment with Augmentin 875 mg PO BID for 10 days - The patient should also be given warm salt water gargles, throat lozenges and/or OTC throat spray as needed for the first 5- 7 days of treatment. - Supportive care with plenty of fluids, rest, and analgesia prn. - Follow up in one week if symptoms persist or worsen. - -Increase fluid intake. Try to drink at least 8 glasses of non caffeinated fluids daily. --Rest as much as possible. -Do the nasal saline irrigation at least 2 x day to relieve nasal mucous and congestion: brands include Abilio Med, Simply saline, Gordon nasal spray, or even the generic store brand one is ok. Take the entire course of antibiotics as prescribed. DO NOT stop taking it early, even if you are feeling better. -Practice good hygiene, wash hands frequently. -Monitor for signs of worsening infection: increased temperature, pain in face, ear pain or headaches or increase in nasal congestion/mucous that is not improving. -Educated patient on side effects of medication. * Seek medical care immediately, call 911, go to ER if you have chest pain, difficulty breathing, shortness of breath, inability to swallow. 2. Tongue sore - ICD9: 529.6, ICD10: K14.6 Appears to be swollen taste bud Apply oral-gel as needed for comfort Warm salt water gargles or Listerine zero gargles Follow up with dentist if continues to be a problem Diagnosis and treatment plan were discussed and questions were answered to the patient's satisfaction. Pt acknowledged understanding of concepts and follow up plan. Specific signs and symptoms that would indicate the need for higher level of care were discussed in detail warranting prompt ER evaluation. Rita Taylor APRN.NURSE CHEMICAL DEPENDENCY CNOV Observed: 10/12/2017 Status: COMPLETED Source: [place] 10:30 AM [facility] RE[facility] Office Visit (WSTR) TUYET DAVIDSON ([id number]) 1985 F Date Time Provider Department 10/12/17 10:30 AM RITA TAYLOR (REGINE) [facility] During your visit today, we recorded the following information about you: Temperature Pulse Respiration Blood pressure 98.8 degrees 96/minute 16/minute 138/88 Weight Last Period 89.8 kg 10/02/17 Rita Taylor APRN.JÚNIOR HEADLEY 10/12/2017 11:03 AM Signed Subjective The history is provided by the patient. No sign language instructor was used. HPI Tuyet Davidson is a 32 year old female who presents today for CC of sinus congestion and pressure This started 2 weeks ago, and wont go away. She also has a sore on her tongue that started 4 days ago, and enlarged lymph node on left side Symptoms are worsened by leaning forward. She has tried tylenol ibuprofen, sudafed, and mucinex without relief. Risk factors family members ill PMH sinusitis BP 138/88 (BP Site: Left Arm, BP Position: Sitting, BP Cuff Size: Large Adult) Pulse 96 Temp 37.1 ?C (98.8 ?F) (Left Tympanic) Resp 16 Wt 89.8 kg (198 lb) LMP 10/02/2017 (Exact Date) SpO2 99% BMI 33.99 kg/m2 ALLERGIES Allergen Reactions - Bactrim [Sulfametho* Rash, Other: See Comments thrombocytopenia - Sulfa (Sulfonamide * Other: See Comments Thrombocytopenia. ACTIVE PROBLEM LIST Acne Pcos (Polycystic Ovarian Syndrome) Infertility Associated With Anovulation Cervical Radiculopathy Family History Problem Relation Age of Onset - Prostate Cancer Maternal Grandfather - Hypertension Father - Lipids Father Social History Marital status: Spouse name: Leonard Davidson Years of education: Number of children: 1 Occupational History Occupation Employer Comment RN Social History Main Topics Smoking status: Former Smoker Packs/day: 0.50 Years: 0.50 Smokeless status: Never Used Comment: socially in high schoole Alcohol use: Yes Comment: Rarely Drug use: No Sexual activity: Yes Partners with: Male control/protection: None Review of Systems Constitutional: Negative. Negative for chills, fever and malaise/fatigue. HENT: Positive for congestion and sinus pain. Negative for ear pain and sore throat. Post nasal drainage Respiratory: Negative for cough, sputum production, shortness of breath and wheezing. Cardiovascular: Negative for chest pain. Musculoskeletal: Negative for myalgias. Skin: Negative for rash. Neurological: Negative for headaches. Objective Physical Exam Constitutional: She is well-developed, well-nourished, and in no distress. HENT: Head: Normocephalic and atraumatic. Right Ear: External ear and ear canal normal. Tympanic membrane is bulging. Tympanic membrane is not injected, not erythematous and not retracted. A middle ear effusion (serous) is present. Left Ear: External ear and ear canal normal. Tympanic membrane is bulging. Tympanic membrane is not injected, not erythematous and not retracted. A middle ear effusion (serous) is present. Nose: Mucosal edema and rhinorrhea present. Right sinus exhibits no maxillary sinus tenderness and no frontal sinus tenderness. Left sinus exhibits maxillary sinus tenderness. Left sinus exhibits no frontal sinus tenderness. Mouth/Throat: Uvula is midline and mucous membranes are normal. No oropharyngeal exudate, posterior oropharyngeal edema, posterior oropharyngeal erythema or tonsillar abscesses. Clear PND Eyes: Conjunctivae and EOM are normal. Pupils are equal, round, and reactive to light. Neck: Normal range of motion. Cardiovascular: Normal rate, regular rhythm and normal heart sounds. Pulmonary/Chest: Effort normal and breath sounds normal. No respiratory distress. She has no decreased breath sounds. She has no wheezes. She has no rhonchi. She has no rales. Lymphadenopathy: Head (right side): No submental, no submandibular, no tonsillar, no preauricular and no posterior auricular adenopathy present. Head (left side): No submental, no submandibular, no tonsillar, no preauricular and no posterior auricular adenopathy present. She has cervical adenopathy. Right cervical: No posterior cervical adenopathy present. Left cervical: Superficial cervical adenopathy present. No posterior cervical adenopathy present. Right: No supraclavicular adenopathy present. Left: No supraclavicular adenopathy present. Skin: Skin is warm and dry. Psychiatric: Affect normal. Nursing note and vitals reviewed. ASSESSMENT/PLAN: 1. Acute non-recurrent maxillary sinusitis - ICD9: 461.0, ICD10: J01.00 (primary diagnosis) - Will begin treatment with Augmentin 875 mg PO BID for 10 days - The patient should also be given warm salt water gargles, throat lozenges and/or OTC throat spray as needed for the first 5-7 days of treatment. - Supportive care with plenty of fluids, rest, and analgesia prn. - Follow up in one week if symptoms persist or worsen. - -Increase fluid intake. Try to drink at least 8 glasses of non caffeinated fluids daily. --Rest as much as possible. -Do the nasal saline irrigation at least 2 x day to relieve nasal mucous and congestion: brands include Abilio Med, Simply saline, Gordon nasal spray, or even the generic store brand one is ok. Take the entire course of antibiotics as prescribed. DO NOT stop taking it early, even if you are feeling better. -Practice good hygiene, wash hands frequently. -Monitor for signs of worsening infection: increased temperature, pain in face, ear pain or headaches or increase in nasal congestion/mucous that is not improving. -Educated patient on side effects of medication. * Seek medical care immediately, call 911, go to ER if you have chest pain, difficulty breathing, shortness of breath, inability to swallow. 2. Tongue sore - ICD9: 529.6, ICD10: K14.6 Appears to be swollen taste bud Apply oral-gel as needed for comfort Warm salt water gargles or Listerine zero gargles Follow up with dentist if continues to be a problem Diagnosis and treatment plan were discussed and questions were answered to the patient's satisfaction. Pt acknowledged understanding of concepts and follow up plan. Specific signs and symptoms that would indicate the need for higher level of care were discussed in detail warranting prompt ER evaluation. Rita Taylor APRN.REGINE Taylor APRN.JÚNIOR HEADLEY 10/12/2017 11:00 AM Signed ASSESSMENT/PLAN: 1. Acute non-recurrent maxillary sinusitis - ICD9: 461.0, ICD10: J01.00 (primary diagnosis) - Will begin treatment with Augmentin 875 mg PO BID for 10 days - The patient should also be given warm salt water gargles, throat lozenges and/or OTC throat spray as needed for the first 5-7 days of treatment. - Supportive care with plenty of fluids, rest, and analgesia prn. - Follow up in one week if symptoms persist or worsen. - -Increase fluid intake. Try to drink at least 8 glasses of non caffeinated fluids daily. --Rest as much as possible. -Do the nasal saline irrigation at least 2 x day to relieve nasal mucous and congestion: brands include Abilio Med, Simply saline, Gordon nasal spray, or even the generic store brand one is ok. Take the entire course of antibiotics as prescribed. DO NOT stop taking it early, even if you are feeling better. -Practice good hygiene, wash hands frequently. -Monitor for signs of worsening infection: increased temperature, pain in face, ear pain or headaches or increase in nasal congestion/mucous that is not improving. -Educated patient on side effects of medication. * Seek medical care immediately, call 911, go to ER if you have chest pain, difficulty breathing, shortness of breath, inability to swallow. 2. Tongue sore - ICD9: 529.6, ICD10: K14.6 Appears to be swollen taste bud Apply oral-gel as needed for comfort Warm salt water gargles or Listerine zero gargles Follow up with dentist if continues to be a problem Referring Provider: SELF [200] Allergies As of Date: 10/12/2017 Noted Allergy Reaction BACTRIM (SULFAMETHOXAZOLE) 06/07/2014 2 - Rash 14 - Other: See Comments Comments: thrombocytopenia SULFA (SULFONAMIDE ANTIBIOTICS) 08/11/2014 14 - Other: See Comments Comments: Thrombocytopenia. Date Reviewed: 10/12/2017 Reviewed by: Rita ([facility]) VARSHA Taylor.NURSE CHEMICAL DEPENDENCY - Fully Assessed Reason for Visit: Sinusitis [127] Cmt: x 2 weeks with a sore tongue x 4 days Primary Visit Diagnosis:Acute non-recurrent maxillary sinusitis [J01.00] Other Visit Diagnosis:Tongue sore [K14.6] Prescriptions as of 10/12/2017 Sig: PROBIOTIC (S.BOULARDII) ORAL Take 1 tablet by mouth once d* VITAMIN,CALCIUM,MINE* Take 1 tablet by mouth once d* Medication notes this encounter CYCLOBENZAPRINE 10 MG TABLET >> Gay Haumesser Sanna 10/12/2017 10:35 AM >> HAUMESSER GAY WIN betty Oct 12, 2017 10:35 AM Therapy complete. NAPROXEN 500 MG TABLET >> Gay Haumesser Sanna 10/12/2017 10:35 AM >> HAUMESSER GAY WIN Oct 12, 2017 10:35 AM Therapy complete. 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 Acute non-recurrent maxillary sinusitis - ICD9: 461.0, ICD10: J01.00 (primary diagnosis) - Will begin treatment with Augmentin 875 mg PO BID for 10 days - The patient should also be given warm salt water gargles, throat lozenges and/or OTC throat spray as needed for the first 5-7 days of treatment. - Supportive care with plenty of fluids, rest, and analgesia prn. - Follow up in one week if symptoms persist or worsen. - -Increase fluid intake. Try to drink at least 8 glasses of non caffeinated fluids daily. --Rest as much as possible. -Do the nasal saline irrigation at least 2 x day to relieve nasal mucous and congestion: brands include Abilio Med, Simply saline, Gordon nasal spray, or even the generic store brand one is ok. Take the entire course of antibiotics as prescribed. DO NOT stop taking it early, even if you are feeling better. -Practice good hygiene, wash hands frequently. -Monitor for signs of worsening infection: increased temperature, pain in face, ear pain or headaches or increase in nasal congestion/mucous that is not improving. -Educated patient on side effects of medication. * Seek medical care immediately, call 911, go to ER if you have chest pain, difficulty breathing, shortness of breath, inability to swallow. 2. Tongue sore - ICD9: 529.6, ICD10: K14.6 Appears to be swollen taste bud Apply oral-gel as needed for comfort Warm salt water gargles or Listerine zero gargles Follow up with dentist if continues to be a problem Medications Discontinued During This Encounter cyclobenzaprine (FLEXERIL) 10 mg tab* 30 t* 1 09/29/2016 10/12/2017 Route: ORAL Sig: Take 1 tablet by mouth daily at bedtime. Disc: Course of therapy completed naproxen (NAPROSYN) 500 mg tablet 60 t* 2 09/29/2016 10/12/2017 Route: ORAL Sig: Take 1 tablet by mouth twice daily with meals. Take with food. Disc: Course of therapy completed Encounter Status:Closed by RITA TAYLOR CNP on 10/12/17 ALLERGIES ALLERGIES DATE TYPE / NAME / CODE REACTION SEVERITY SOURCE CODE 08/15/2018 Drug Sulfa (Sulfonamide Low platelets Unknown [place] Allergy/41 Antibiotics)/[id number] Community [id number]([facility](RXNORM) [facility]) Repository 08/15/2018 Drug sulfamethoxazole/F0060 Low platelets Unknown [place] Allergy/41 29397(RXNORM) Community [id number]([facility]) Repository 08/15/2018 Drug trimethoprim/[id number] Low platelets Unknown [place] Allergy/41 3(RXNORM) [facility] [id number]([facility]) Repository 08/11/2014 Drug SULFA (SULFONAMIDE OTHER: SEE [place] Class/4195 ANTIBIOTICS) Clinic Main [address]([facility]) Repository 06/07/2014 DRUG SULFAMETHOXAZOLE RASH [place] INGREDI/41 Clinic Main [id number]([facility]) Repository ENCOUNTERS ENCOUNTERS ADMIT/DISCHARGE ACCOUNT NUMBER ADMITTING ENCOUNTER LOCATION SOURCE CLASS 08/17/2018 [id number] Ambulatory BMSBuilding: [place] BMS.[facility] Repository 08/16/2018 [id number] Ambulatory BMSBuilding: [place] BMS.[facility] Repository 08/16/2018 [id number] Ambulatory BMSBuilding: [place] BMS.CF.[facility] Repository 08/16/2018/08/17/19 [id number] Ambulatory [address] ding:SDCRoom Repository : MS207 08/11/2018 [id number] Ambulatory [facility] ding:MRI Repository 08/11/2018/08/12/19 [id number] Ambulatory [address] Repository 08/04/2018 [id number] Ambulatory [facility] Repository 08/04/2018/08/05/19 [id number] Ambulatory [address] Repository 08/02/2018 [id number] Ambulatory [facility] ding:HPRAD Repository 08/02/2018/08/02/19 [id number] Ambulatory BMSBuilding: [address] Repository 07/28/2018 [id number] Ambulatory [facility] Repository 07/07/2018/07/11/20 [id number] Ambulatory BBuilding:DR Elliott [address] [facility] Repository 07/05/2018/07/06/20 [id number] Ambulatory [address] Repository 06/29/2018/06/30/20 [id number] Ambulatory [address] Repository 06/15/2018/06/15/20 [id number] Emergency [address] ding:ED Repository 05/31/2018 [id number] Ambulatory [facility] ding:MRI Repository 05/24/2018/05/25/20 [id number] Ambulatory [address] Repository 05/18/2018/05/18/20 [id number] Emergency [address] ding:ED Repository 03/22/2018/03/23/20 [id number] Ambulatory [address] Repository 01/10/2018/01/13/20 [id number] Ambulatory [address] Repository 10/12/2017/10/14/19 [id number] Ambulatory [address] Repository PAYERS PAYERS ENCOUNTER GUARANTOR PAYER SUBSCRIBER SOURCE 08/17/2018 [id number] Insurance:Sandee PRECIADO: [employer] [place] Number: [id number] [id number] Repository [address]Koa: 330) Date:2089-87-06TI [phone] () [id number], [place] [address]FC: 08/17/2018 Secondary NOT GIVENUNK [place] Insurance:SELF PAY [facility] Number: Effective Repository Date:2018-08-17 08/16/2018 TUYET Toro Primary VALLE A [place] [id number] Insurance:CIGNAPolicy CURTISDOB[place] [facility] [place]: [id number], [place] [id number] Repository [address]Khe: (330) Date:0412-38-35UQ [phone] () 611390JLAQWJRIOPX, [place] [address]QZ: 08/16/2018 Secondary NOT GIVENUNK [place] Insurance:SELF PAY [facility] Number: Effective Repository Date:2018-08-16 08/16/2018 TUYET Toro Primary VALLE A [place] [id number] Insurance:CIGNAPolicy CURTISDOB: [facility] [place]: [id number], [place] [id number] Repository [address]Ynd: (330) Date:8270-34-84IA [phone] () 123450SIYCFAOTPGS, [place] [address]FB: 08/16/2018 Secondary NOT GIVENUNK [place] Insurance:SELF PAY [facility] Number: Effective Repository Date:2018-08-16 08/16/2018 TUYET Toro Primary VALLE A [place] [id number] Insurance:CIGNAPolicy CURTISDOB: [facility] Number: [id number], [place] [id number] Repository [address]Xbu: 330) Date:0933-31-59IQ [phone] () [id number], [place] [address]YL: 08/16/2018 Secondary NOT GIVENUNK [place] Insurance:SELF PAY [facility] Number: Effective Repository Date:2018-08-02 08/11/2018 TUYET Toro Primary VALLE A [place] [id number] Insurance:CIGNAPolicy CURTISDOB: [facility] Number: [id number], [place] [id number] Repository [address]Yxt: (330) Date:1565-43-36MF [phone] () [id number], [place] [address]PU: 08/11/2018 Secondary NOT GIVENUNK [place] Insurance:SELF PAY [facility] Number: Effective Repository Date:2018-08-09 08/04/2018 Tuyet Toro [facility] CurtisDOB: Insurance:CignaPolicy CurtisDOB: System Number: Effective 1224-31-00YED Repository Atlas Date: [place], [place] [address]Vjp: () 08/02/2018 TUYET Toro [facility] LEONARD Cam [place] [id number] Insurance:CIGNAPolicy CURTISDOB: [facility] Number: [id number], [place] [id number] Repository [address]Ivc: (330) Date:7082-07-18DU [phone] () [id number], [place] [address]TE: 08/02/2018 Secondary NOT GIVENUNK [place] Insurance:SELF PAY [facility] Number: Effective Repository Date:2018-08-02 08/02/2018 TUYET Toro [facility] LEONARD Cam [place] [id number] Insurance:CIGNAPolicy CURTISDOB: [facility] ROSEWARREN Number: [id number], [place] [id number] Repository [address]Kck: (330) Date:9629-20-75YK [phone] () 814854TNSXNMFVHKK, [place] [address]FQ: 08/02/2018 Secondary NOT GIVENUNK [place] Insurance:SELF PAY [facility] Number: Effective Repository Date:2018-06-28 07/28/2018 Tuyet [facility] Tuyet Toro [facility] CurtisDOB: Insurance:CignaPolicy CurtisDOB: System Number: Effective [id number] Repository Atlas Date: [place], [place] [address]Rkb: () 07/07/2018 [facility] CURTISDOB: Insurance:DAISHA DAVIDSONB: [facility] [id number] Number: [id number] Repository [place] [id number] [address] [place] [address], Date:2018-07-07 - [place], [place] [address]Qkt: 2549-13-94Vuuv [place] [address]Vlk: Name:CARTOGRAPHIC DRAFTER BOX ()Tel: [phone]) 936132Ewselteeaug, [place] () (WP) [phone]: () [phone] 06/15/2018 TUYET Cortez [facility] LEONARD A [place] [id number] Insurance:Sandee DAVIDSONB: [facility] Number: [id number], [place] [id number] Repository [address]Aqx: 330) Date:5958-70-81KH [phone] () 065923IYFUIRIJOWI, [place] [address]JP: 06/15/2018 Secondary NOT GIVENUNK [place] Insurance:SELF PAY [facility] Number: Effective Repository Date:2018-06-15 05/31/2018 [facility] Valle A [place] [id number] Insurance:Sandee DavidsonDOB: [facility] Number: [id number], [place] [id number] Repository [address]Otq: 330) Date:2630-34-69DP [phone] () 287233NYVJGMOOASB, [place] [address]EJ: 05/31/2018 Secondary NOT GIVENUNK [place] Insurance:SELF PAY [facility] Number: Effective Repository Date:2018-05-24 05/18/2018 [facility] Valle A [place] [id number] Insurance:CIGCamden DavidsonDOB: [facility] Number: [id number], [place] [id number] Repository [address]Jit: (330) Date:0774-51-90HR [phone] () 457210FFSITHANZTX, [place] [address]GZ: 05/18/2018 Secondary NOT GIVENUNK [place] Insurance:SELF PAY [facility] Number: Effective Repository Date:2018-05-18
== END ==
PROVIDERS: Family Provider Family Medicine; PCP Family Medicine; Referring Provider Orthopaedic Surgery; Visit Provider Orthopaedic Surgery
DX: M54.12 Radiculopathy, cervical region (principal)
CPT/HCPCS: 72141

== ENCOUNTER 2018-08-16 06:24 | Day surgery (SDC) | payer OTHER, SELFPAY ==
[2018-08-02 08:14] VITALS: BMI 34.0
[2018-08-09 08:20] VITALS: BP 137/82; PULSE 80; RESP 16; TEMP 37.5; O2SAT 98; BMI 33.6
[2018-08-09 09:51] LABS: Color, Urine Yellow (Yellow); Glucose, Dipstick Normal (Normal); Ketone-Dipstick Negative (Negative); Leukocyte Esterase-Dipstick Negative /ul (Negative); Nitrite-Dipstick Negative (Negative); Occult Blood-Urine Negative /ul (Negative); Protein-Dipstick Negative (Negative); Urine Bilirubin Dipstick Negative (Negative); Urine Clarity Clear (Clear); Urine Urobilinogen Normal (Normal)
[2018-08-09 09:55] LABS: Absolute Lymphocyte Count 1.51 X10^3/ul (0.83-4.51); Basophil# 0.03 X10^3/uL; Basophil% 0.6 % (0-1); Eosinophils% 1.9 % (0-5); Hematocrit 36.7 % (37-47); Hemoglobin 11.5 g/dl (12.0-15.0); Lymphocyte # 1.51 X10^3/ul (4.0); Lymphocyte % 29.4 % (19-41); Mean Corp Hgb Conc 31.3 g/gl (32-36); Mean Corpuscular Hgb 24.3 pg (27.0-32.0); Mean Corpuscular Volume 77.6 fL (81-99); Mean Platelet Vol. 10.2 fl (6.2-12.0); Monocyte# 0.44 X10^3/uL; Monocyte% 8.6 % (0-10); Neutrophil # 3.04 X10^3/uL (2.7-7.7); Neutrophil % 59.3 % (47-70); POSITIVE COUNT NO; POSITIVE DIFFERENTIAL NO; POSITIVE MORPHOLOGY NO; Platelet Count 277 K/mm3 (150-450); RBC Distribution Width CV 16.2 % (11.6-14.6); RBC Distribution Width SD 44.5 fl (35.1-43.9); Red Blood Count 4.73 M/mm3 (4.2-5.4); White Blood Count 5.1 K/mm3 (4.4-11.0)
[2018-08-09 09:56] LABS: Internal QC Validated? YES +Cl - CLEAR BKGD; Pregnancy, Urine Negative Negative
[2018-08-09 10:12] LABS: Prothrombin Time (Protime)PT. 13.2 SECONDS (11.7-14.9)
[2018-08-09 10:13] LABS: Partial Thromboplast Time 30.4 Seconds (24.1-36.2)
[2018-08-09 10:25] LABS: ALB/GLOB Ratio 1.1 RATIO (0.9-2.4); AST(SGOT) 15 U/L (15-37); Alanine Aminotransfer ALT/SGPT 22 U/L (13-56); Albumin, Serum 3.7 g/dL (3.2-5.0); Alkaline Phosphatase 85 U/L (45-117); Anion Gap 8 (5-15); BUN 16 mg/dL (7-18); BUN/Creat Ratio 18.5 RATIO (10-20); Calcium,Total 8.1 mg/dL (8.5-10.1); Chloride 106 mmol/L (98-107); Creatinine, Serum 0.87 mg/dL (0.55-1.02); EST Glomerular Filtration Rate 79 mL/min (>60); Est Glom Filt Rate - Afr Amer 96 mL/min (>60); Estimated Creatinine Clearance 77.94 ml/min; Globulin 3.5 g/dL (2.2-4.2); Glucose 106 mg/dL (74-106); Potassium 3.7 mmol/L (3.5-5.1); Protein, Total 7.2 g/dL (6.4-8.2); Sodium Level 137 mmol/L (136-145)
[2018-08-16] VITALS (11 sets, daily range): BP systolic 86–129; BP diastolic 47–80; PULSE 76–89; RESP 14–16; TEMP 36.1–36.9; O2SAT 95–100; BMI 33.9
[2018-08-16 07:17] LABS: Internal QC Validated? YES +Cl - CLEAR BKGD; Pregnancy, Urine Negative Negative
--- NOTE | 2018-08-16 08:00 | RAD_ITS ---
STUDY: X-RAY - CERVICAL SPINE REASON FOR EXAM: Female, 33 years old. Intraoperative imaging. TECHNIQUE: 3 view(s) and 8 images of the cervical spine were obtained. COMPARISON: None FINDINGS: Intraoperative imaging provided for C6-C7 prosthetic disc placement. RAD/Cerv Spine 2 or 3 Views IMPRESSION: Intraoperative imaging provided for prosthetic disc placement at the C6-C7 level. Electronically Signed: Jeronimo Sierra MD at 12:54 EST Tel [phone], Service support ,
[2018-08-16] MEDS: Cefazolin 2 GM in 0.9% Normal Saline 100 ML IV ×3 (08:02→22:32)
[2018-08-16] MEDS: Bupivacaine 0.5% PF 10 ML VIAL (08:54)
[2018-08-16] MEDS: THROMBIN (RECOMBINANT) 20,000 UNIT VIAL 20000 UNIT TOPICAL (09:30)
--- NOTE | 2018-08-16 11:25 | PCM.IMDPSTOP ---
Problem List (1) Cervical radiculopathy at C7 Status: Acute Immediate Post-Op Note Date of Procedure: 08/16/18 Primary Surgeon/Physician: Pam Rodriguez MD licensed bondsman: Lj Dias Pre-Operative Diagnosis: left C6-C7 radiculopathy Post-Operative Diagnosis: left C6-7 disc herniation Surgery/Procedure Performed:: C6-C7 total disc arthroplasty Description of Surgical Findings:: C6-7 discectomy and total disc arthroplasty Estimated Blood Loss: 25 Specimen's removed: C6-7 disc Drains: none Type of Anesthesia:: General - Admit VTE Documentation VTE Present on Admission: Yes VTE Mechan Device Prophylaxis: SCD's VTE Pharm Prophylaxis ordered?: No
--- NOTE | 2018-08-16 11:28 | OP.PN_ITS ---
Problem List (1) Cervical radiculopathy at C7 Status: Acute Immediate Post-Op Note Date of Procedure: 08/16/18 Primary Surgeon/Physician: Pam Rodriguez MD director of bands: Lj Dias Pre-Operative Diagnosis: left C6-C7 radiculopathy Post-Operative Diagnosis: left C6-7 disc herniation Surgery/Procedure Performed:: C6-C7 total disc arthroplasty Description of Surgical Findings:: C6-7 discectomy and total disc arthroplasty Estimated Blood Loss: 25 Specimen's removed: C6-7 disc Drains: none Type of Anesthesia:: General - Admit VTE Documentation VTE Present on Admission: Yes VTE Mechan Device Prophylaxis: SCD's VTE Pharm Prophylaxis ordered?: No
--- NOTE | 2018-08-16 11:28 | PCM.OP.BLANK ---
Problem List (1) Cervical radiculopathy at C7 Status: Acute Operative Report Date of Procedure: 08/16/18 Operative Report DATE PERFORMED: 08/16/2018 POSTOPERATIVE DIAGNOSIS: Left C6-C7 disk herniation with left C7 radiculopathy and weakness. POSTOPERATIVE DIAGNOSIS: Left C6-C7 disk herniation with left C7 radiculopathy and weakness. PROCEDURE: 1. C6-C7 diskectomy, decompression, arthroplasty. 2. Use of intraoperative fluoroscopy. 3. Use of intraoperative microscope. 4. Use of intraoperative neuromonitoring. SURGEON: Pam Rodriguez MD. STAFF DEVELOPMENT COORDINATOR RN: WILLIAM Hernandez. ANESTHESIA: General. ESTIMATED BLOOD LOSS: 25 cc. DRAINS: None. COMPLICATIONS: None. IMPLANTS: [employer] Mobi-C 13 x 17 x 5. INDICATIONS FOR PROCEDURE: Ms. Davidson is a 33-year-old female, who presents with neck pain and left C7 radiculopathy and weakness. Her preoperative imaging demonstrates a large left C6-C7 disk extrusion with severe foraminal stenosis. She has failed nonoperative treatment to include physical therapy and medications. Given the patient has been refractory to conservative treatment and is significantly affected in her quality of life, a C6-C7 anterior cervical diskectomy with arthroplasty was recommended. The patient agreed to comply with the treatment plan formulated. DESCRIPTION OF PROCEDURE: The patient was correctly identified as the Chelsea Davidson in the preoperative holding area. Consent was verified. All questions were answered. The risks and benefits of the procedure including but not limited to pain, infection, bleeding, failure of the operation, need for reoperation, implant failure, damage to nerve, tendon, vessel, muscle; risk of anesthesia, risk of durotomy, adjacent segment pathology, dysphagia, dysphonia, paralysis, continued pain, worsening symptoms, DVT/PE, and blindness were discussed in detail. The patient agreed to comply with the treatment plan formulated. The surgical site was marked. She was taken to the operating suite #1, where she underwent general anesthesia by anesthesia colleagues uneventfully. Preoperative antibiotics were initiated. KELLE hose and SCDs were placed on bilateral lower extremities for DVT prophylaxis. Neuromonitoring placed their leads. She was then placed supine on the radiolucent table. Her arms were padded and tucked at the side. Her neck was then gently extended. Her neck was then sterilely prepped and draped in the usual sterile fashion. A surgical pause was performed to confirm patient and procedure. The operation was then begun. An anterior left-sided skin incision was performed in a prominent skin fold overlying the C6-C7 disk space. Confirmed on x-ray. This was continued down to the subcutaneous tissue to the platysmal fascia. Full-thickness skin flaps were then developed and the platysma was then split in line with the direction of the fibers. The dissection proceeded down to the deep cervical fascia. The esophagus and trachea were mobilized medially and the carotid sheath was carefully protected laterally. The anterior aspect of the spine was carefully isolated. The prevertebral fascia was then incised and bluntly dissected off the anterior longitudinal ligament. The needle was placed within the C7 vertebral body. Intraoperative radiographs were obtained to confirm the operative level. [place] pins were then placed in the C6 and C7 vertebral body. The longus coli were then gently retracted on both sides to expose the C6-C7 disk space. Self-retaining retractors were then placed. The microscope was then brought in for the remainder of the procedure. The anterior aspect of the C6-C7 disk was then incised with a 15 blade. The anterior was then incised with a 15 blade. The disk was excised in its entirety using a series of pituitary rongeurs and angled curettes back to the posterior longitudinal ligament and out to the uncovertebral joints bilaterally. The paddle distractor was then gently used to distract the disk space. High-speed bur was then used to bur down the uncinate processes bilaterally. There was a noted rent in the posterior longitudinal ligament on the left and multiple large fragments of disk extrusion were removed. A nerve hook was then used to palpate out the foramen bilaterally with no evidence of residual foraminal stenosis. The posterior longitudinal ligament was resected. The operative site was then thoroughly irrigated. Hemostasis obtained. The decompression was deemed complete. A series of trial sizers were then used to select a 13 x 17 x 5 mm Mobi-C implant. The implant was impacted into the C6-C7 disk space. Intraoperative fluoroscopy demonstrated excellent placement. The [place] pins were then removed. The wound was then thoroughly irrigated. Hemostasis obtained. The platysma was then closed with 2-0 Vicryl interrupted fashion, followed by 3-0 Vicryl to close subcutaneous tissue, and a running 0 Monocryl to close the subcuticular tissue. Dermabond was then applied. A sterile dressing was then placed. The patient was placed in a soft collar, extubated and transferred to the postanesthesia care unit in stable condition. There were no complications. There were no changes in neuromonitoring. The patient tolerated the procedure well. Needle and sponge counts were correct at the end of the procedure.
--- NOTE | 2018-08-16 11:31 | PCM.DC ---
- Discharge Diagnoses Current Active Problems: Current Active and Chronic Problems Cervical radiculopathy at C7 (Acute) Reason(s) for Visit for Discharge Instructions: s/p cervical total disc arthroplasty You will use the following diet at home:: Regular, Other - sitting up at ALL times when eating or drinking Your food should be the consistency of: Regular Discharge Activity: May not drive while taking narcotic pain medications., - - no overhead lifting or lifting greater than 5 pounds. sitting up at 30 degrees at time. May shower in (days): 5 Weight Bearing Status: Weight bearing as tolerated Lifting Restrictions: 5 Call your doctor if your incision/area has: Continuous Slow Oozing, Sudden Increased Bleeding, Increased Pain/ Swelling, Increased Redness, Foul Smelling Discharge, Swelling at the incision site Call your doctor if you observe: Fever of 101 or Higher, Numbness or Tingling, Change in Color, Inability to urinate, Shortness of breath, Dizziness, Fainting spells, Chest pain, Increased palpitations (irregular heartbeat), Calf discomfort, Uncontrolled pain Suture Line Care: Avoid Pulling/Pushing, Avoid Pinching/Bending Change Dressing in (Days):: 2 Remove Dressing in (days):: 2 Cleanse incision/area with: Do not get Incision Wet - for 5 days after surgery Allergies/Adverse Reactions: Allergies Sulfa (Sulfonamide Antibiotics) Adverse Reaction (Verified 08/15/18 12:57) Low platelets sulfamethoxazole [From Bactrim] Adverse Reaction (Verified 08/15/18 12:57) Low platelets trimethoprim [From Bactrim] Adverse Reaction (Verified 08/15/18 12:57) Low platelets Medications to take at Discharge Fluticasone 0.05% [Flonase Nasal [place]] 1 spray NASAL DAILY 08/09/18 Lisinopril [Prinivil] 5 mg PO DAILY 08/09/18 Tizanidine HCl [Zanaflex] 4 mg PO [id number] 08/09/18 Oxycodone HCl/Acetaminophen [Percocet 5-325 mg Tablet] 2 ea PO 4X/DAY PRN PRN 7 Days #84 tab MDD 12 08/16/18 The following prescriptions were given: Oxycodone HCl/Acetaminophen [Percocet 5-325 mg Tablet] 2 ea PO 4X/DAY PRN PRN 7 Days #84 tab MDD 12 PRN Reason: Pain Primary Care Physician: Chicho Keane MD [Primary Care Provider] - Please follow up with your Primary Care Physician in: 2 weeks for wound check Test Results: Test results from this visit will be discussed in further detail at your follow-up appointment, if applicable. Please Follow Up With: Pam Rodriguez MD When: 6 weeks
--- NOTE | 2018-08-16 11:34 | DCINST_ITS ---
- Discharge Diagnoses Current Active Problems: Current Active and Chronic Problems Cervical radiculopathy at C7 (Acute) Reason(s) for Visit for Discharge Instructions: s/p cervical total disc arthroplasty You will use the following diet at home:: Regular, Other - sitting up at ALL times when eating or drinking Your food should be the consistency of: Regular Discharge Activity: May not drive while taking narcotic pain medications., - - no overhead lifting or lifting greater than 5 pounds. sitting up at 30 degrees at time. May shower in (days): 5 Weight Bearing Status: Weight bearing as tolerated Lifting Restrictions: 5 Call your doctor if your incision/area has: Continuous Slow Oozing, Sudden Increased Bleeding, Increased Pain/ Swelling, Increased Redness, Foul Smelling Discharge, Swelling at the incision site Call your doctor if you observe: Fever of 101 or Higher, Numbness or Tingling, Change in Color, Inability to urinate, Shortness of breath, Dizziness, Fainting spells, Chest pain, Increased palpitations (irregular heartbeat), Calf discomfort, Uncontrolled pain Suture Line Care: Avoid Pulling/Pushing, Avoid Pinching/Bending Change Dressing in (Days):: 2 Remove Dressing in (days):: 2 Cleanse incision/area with: Do not get Incision Wet - for 5 days after surgery Allergies/Adverse Reactions: Allergies Sulfa (Sulfonamide Antibiotics) Adverse Reaction (Verified 08/15/18 12:57) Low platelets sulfamethoxazole [From Bactrim] Adverse Reaction (Verified 08/15/18 12:57) Low platelets trimethoprim [From Bactrim] Adverse Reaction (Verified 08/15/18 12:57) Low platelets Medications to take at Discharge Fluticasone 0.05% [Flonase Nasal [place]] 1 spray NASAL DAILY 08/09/18 Lisinopril [Prinivil] 5 mg PO DAILY 08/09/18 Tizanidine HCl [Zanaflex] 4 mg PO [id number] 08/09/18 Oxycodone HCl/Acetaminophen [Percocet 5-325 mg Tablet] 2 ea PO 4X/DAY PRN PRN 7 Days #84 tab MDD 12 08/16/18 The following prescriptions were given: Oxycodone HCl/Acetaminophen [Percocet 5-325 mg Tablet] 2 ea PO 4X/DAY PRN PRN 7 Days #84 tab MDD 12 PRN Reason: Pain Primary Care Physician: Chicho Keane MD [Primary Care Provider] - Please follow up with your Primary Care Physician in: 2 weeks for wound check Test Results: Test results from this visit will be discussed in further detail at your follow- up appointment, if applicable. Please Follow Up With: Pam Rodriguez MD When: 6 weeks
--- NOTE | 2018-08-16 11:35 | DS.PCM_ITS ---
Discharge Date and Diagnosis - Problem List Patient Problems: Active and Suspected Problems Cervical radiculopathy at C7 (Acute) Date of Admission: 08/16/18 Date of Discharge: 08/16/18 - Primary Discharge Diagnosis Active and Suspected Problems Cervical radiculopathy at C7 (Acute) Hospital Course and Treatment Imaging Results: 08/16/18 08:00 Cerv Spine 2 or 3 Views [RAD] Routine O.R. Fluoro for C-Arm [RAD] Routine 08/16/18 14:00 Xray Cervical [Cerv Spine 2 or 3 Views] [RAD] Urgent Operations: - - cervical TDR C6-7 Procedures: None Summary of Care Provided: The patient is a 33 year old F [] Patient Problems: Active and Suspected Problems Cervical radiculopathy at C7 (Acute) - Physical Exam Vital Signs Temp Pulse Resp BP Pulse Ox 98.4 F 86 14 129/80 H 100 08/16/18 07:20 08/16/18 07:20 08/16/18 07:20 08/16/18 07:20 08/16/18 07:20 Oxygen Delivery Method Room Air Weight: 197 lb 12.074 oz Body Mass Index (BMI) 33.9 Laboratory Tests Past 24 Hrs 08/16/18 07:00 Urine Test Negative Discharge Activity: May not drive while taking narcotic pain medications., - - no overhead lifting or lifting greater than 5 pounds. sitting up at 30 degrees at time. May shower in (days): 5 Weight Bearing Status: Weight bearing as tolerated Call your doctor if your incision/area has: Continuous Slow Oozing, Sudden Increased Bleeding, Increased Pain/ Swelling, Increased Redness, Foul Smelling Discharge, Swelling at the incision site Call your doctor if you observe: Fever of 101 or Higher, Numbness or Tingling, Change in Color, Inability to urinate, Shortness of breath, Dizziness, Fainting spells, Chest pain, Increased palpitations (irregular heartbeat), Calf discomfort, Uncontrolled pain Suture Line Care: Avoid Pulling/Pushing, Avoid Pinching/Bending Change Dressing in (Days):: 2 Remove Dressing in (days):: 2 Cleanse incision/area with: Do not get Incision Wet - for 5 days after surgery Home Medications: Medications to take at Discharge Fluticasone 0.05% [Flonase Nasal [place]] 1 spray NASAL DAILY 08/09/18 Lisinopril [Prinivil] 5 mg PO DAILY 08/09/18 Tizanidine HCl [Zanaflex] 4 mg PO [id number] 08/09/18 Oxycodone HCl/Acetaminophen [Percocet 5-325 mg Tablet] 2 ea PO 4X/DAY PRN PRN 7 Days #84 tab MDD 12 08/16/18 Following Prescrptions Were Given to Patient: Oxycodone HCl/Acetaminophen [Percocet 5-325 mg Tablet] 2 ea PO 4X/DAY PRN PRN 7 Days #84 tab MDD 12 PRN Reason: Pain Primary Care Physician: Chicho Keane MD [Primary Care Provider] - Please follow up with your Primary Care Physician in: 2 weeks for wound check Please Follow Up With: Pam Rodriguez MD When: 6 weeks Medical Necessity - Tobacco Use Smoking Status: Never smoker Meaningful Use Info Meaningful Use Diagnoses (Choose all that apply): None applicable
--- NOTE | 2018-08-16 13:10 | PN.SURG_ITS ---
Patient Problems: Active and Suspected Problems Cervical radiculopathy at C7 (Acute) Subjective: patient drowsy in PACU. denies pain - Physical Exam General: Alert, Oriented x3 HEENT: Atraumatic, PERRLA, EOMI Oral: Moist Mucosa Neck: Supple - no swelling. soft collar in place Vital Signs Temp Pulse Resp BP Pulse Ox 97.5 F L 76 16 102/63 95 08/16/18 12:40 08/16/18 12:40 08/16/18 12:40 08/16/18 12:40 08/16/18 12:40 Oxygen Delivery Method Room Air Weight: 197 lb 12.074 oz Body Mass Index (BMI) 33.9 Intake and Output for Last 24 Hours 08/14/18 08/15/18 08/16/18 23:59 23:59 23:59 Intake Total 1400 / 1400 Balance 1400 / 1400 Laboratory Tests Past 24 Hrs 08/16/18 07:00 Urine Test Negative Medical Necessity - Tobacco Use Smoking Status: Never smoker Assessment/Plan All Active Problems Cervical radiculopathy at C7 (Acute) status post C6-C7 TDR 08/16/2018 Patient doing well. Plan to mobilize today. ADAT. Aspiration precautions. Discharge today if meeting discharge criteria and standing cervical radiographs obtained. Plan discussed with patient and her mother, who are in understanding. In compliance with the laws of the [facility] Medical Board of [place], the following conditions have been met for extending the dose or duration of opioid pain medication for the treatment of acute pain. Diagnosis: s/p C6-7 total disc arthroplasty 2. Pain following surgery or procedure (ICD10 G89.18) 7 day limit exceeded due to pain that is expected to persist longer than 7 days. Pathology of pain: status post spine surgery 30 MED average exceeded due to: recent spine surgery Reason for exceeding the 30 MED average: Pain after orthopedic surgery not yet acceptably controlled by non-opioid medication. This is the lowest dose need for her medical condition. The patient's account was reviewed on the [employer] Reporting System: [employer]. Their controlled substance medication history was found to be aligned with health and medication history. Patient has had no adverse outcomes with this medication.
--- NOTE | 2018-08-16 14:00 | RAD_ITS ---
STUDY: X-RAY - CERVICAL SPINE REASON FOR EXAM: Female, 33 years old. Disc replacement. TECHNIQUE: AP and lateral view(s) of the cervical spine were obtained. COMPARISON: None FINDINGS: Normal anterior atlantoaxial articulation. Normal odontoid process. Normal cervical lordosis. Minimal anterior spondylosis at the C5-C6 level. A prosthetic disc spacer is seen at the C5-C6 level. Normal visualized intervertebral neuroforamina. The soft tissue structures are unremarkable. RAD/Cerv Spine 2 or 3 Views IMPRESSION: A prosthetic disc spacer is seen at the C6-C7 level. Electronically Signed: Jeronimo Sierra MD at 14:47 EST Tel [phone], Service support ,
--- NOTE | 2018-08-16 17:47 | PCM.HP.STD ---
<Laura Ken - Last Filed: 08/16/18 18:06> Problem List (1) HTN (hypertension) Status: Chronic (2) Cervical radiculopathy at C7 Status: Chronic History of Present Illness Date of Admission: 08/16/18 Chief Complaint: S/P C6-C7 discectomy, decompression, arthroplasty. The patient is a 33 year old F who underwent C6-C7 discectomy, decompression and arthroplasty 08/16/[address] Pam Rodriguez. Prior to surgery, patient had significant neck pain and left C7 radiculopathy and weakness. Preoperative imaging demonstrated a large left C6-C7 disc extrusion with severe foraminal stenosis. Surgery without complications. Patient complains of left scapula pain. Mild left hand numbness which was present prior to surgery. Her other past medical history includes hypertension which she states is a fairly recent diagnosis, suspected secondary to neck pain. She denies prior medical history. Past Medical History Past Medical History (Chronic Problems): Chronic Problems Cervical radiculopathy at C7 (Chronic) HTN (hypertension) (Chronic) Allergies Sulfa (Sulfonamide Antibiotics) Adverse Reaction (Verified 08/15/18 12:57) Low platelets sulfamethoxazole [From Bactrim] Adverse Reaction (Verified 08/15/18 12:57) Low platelets trimethoprim [From Bactrim] Adverse Reaction (Verified 08/15/18 12:57) Low platelets Home Medications: Ambulatory Orders Medication Instructions Recorded Fluticasone 0.05% [Flonase Nasal 1 spray NASAL DAILY 08/09/18 [place]] Lisinopril [Prinivil] 5 mg PO DAILY 08/09/18 Tizanidine HCl [Zanaflex] 4 mg PO [id number] 08/09/18 Oxycodone HCl/Acetaminophen 2 ea PO 4X/DAY PRN PRN 7 Days #84 08/16/18 [Percocet 5-325 mg Tablet] tab MDD 12 Surgical History: - - C6-C7 discectomy, decompression, arthroplasty. Kidney stone removal. Psychiatric History: No pertinent psych hx [employer] History: No pertinent [employer] history Smoking Status: Never smoker Alcohol: None Drugs: None - *Family History Maternal History Items: - - Kidney stones Paternal History Items: High Cholesterol, Hypertension, - - Prostate cancer Review of Systems Constitutional: Denies: Chills, Fever, Weight Change HEENT: Denies: Head Aches, Sinus Congestion, Sinus Drainage Cardiovascular: Denies: Chest Pain, Palpitations Respiratory: Denies: Cough, Shortness of breath at rest, Sputum production Gastrointestinal: Denies: Abdominal Pain, Nausea, Vomiting Genitourinary: Denies: Dysuria Musculoskeletal: Reports: Neck Pain, - - Left scapular pain Skin: Denies: Rash, Wounds Neurological: Reports: - - Numbness, tingling left hand. Denies: Focal weakness Psychiatric: Denies: Anxiety, Depression, Homicidal Ideations, Suicidal Ideations Hematologic/ Lymphatic: Denies: Easy Bruising, Easy Bleeding VTE Information - Inpt Only VTE Present on Admission: No VTE Mechan Device Prophylaxis: SCD's VTE Pharm Prophylaxis ordered?: No - Physical Exam General: Alert, Oriented x3, Cooperative, No apparent distress HEENT: Atraumatic, PERRLA, EOMI, Normocephalic Neck: Supple, No JVD, Negative Carotid Bruits Lungs: Clear to auscultation, Normal air movement Cardiovascular: Regular rate, Regular Rhythm, Normal S1, Normal S2, No murmurs Abdomen: Bowel Sounds Present, Soft, Non Tender, Non-Distended Extremities: No clubbing, No cyanosis, No edema, Capillary Refill Less than 3 Seconds Skin: No rashes, No breakdown Musculoskeletal: No Tenderness to Palpation of Joints or Extremities, - - Soft neck collar present Neurological: Cranial nerves II-XII grossly intact, Neuro grossly intact, - - Left hand radiculopathy Psych/Mental Status: Normal Affect, Appropriate Vital Signs Temp Pulse Resp BP Pulse Ox 98.1 F 76 16 115/76 100 08/16/18 16:36 08/16/18 16:36 08/16/18 16:36 08/16/18 16:36 08/16/18 16:36 Oxygen Delivery Method Room Air Weight: 197 lb 12.074 oz Body Mass Index (BMI) 33.9 Intake and Output for Last 24 Hours 08/14/18 08/15/18 08/16/18 23:59 23:59 23:59 Intake Total 3200 / 3200 Balance 3200 / 3200 Laboratory Tests Past 24 Hrs 08/16/18 07:00 Urine Test Negative Assessment/Plan 1. Status post C6-C7 discectomy, decompression, arthroplasty secondary to left C6-C7 disc herniation with left C7 radiculopathy and weakness-surgery with Dr. Pam Rodriguez 08/16/18. Monitor overnight and manage pain. Continue pain regimen as prescribed by surgeon for discharge. Zofran as needed for nausea. Activity instructions per Dr. Rodriguez. 2. Hypertension-continue home lisinopril regimen. DVT prophylaxis-SCDs This patient was seen by SO Archer under the supervision of Dr. [place]. <MiroslavaKaylajamila Dang - Last Filed: 08/17/18 13:40> History of Present Illness The patient is a 33 year old F [] Past Medical History Allergies Sulfa (Sulfonamide Antibiotics) Adverse Reaction (Verified 08/15/18 12:57) Low platelets sulfamethoxazole [From Bactrim] Adverse Reaction (Verified 08/15/18 12:57) Low platelets trimethoprim [From Bactrim] Adverse Reaction (Verified 08/15/18 12:57) Low platelets - Physical Exam Vital Signs Temp Pulse Resp BP Pulse Ox 97.8 F 73 16 115/61 100 08/17/18 11:25 08/17/18 11:25 08/17/18 11:25 08/17/18 11:25 08/17/18 11:25 Oxygen Delivery Method Room Air Weight: 197 lb 12.074 oz Body Mass Index (BMI) 33.9 Intake and Output for Last 24 Hours 08/15/18 08/16/18 08/17/18 23:59 23:59 23:59 Intake Total 3200 / 3200 1220 / 1220 Balance 3200 / 3200 1220 / 1220 Assessment/Plan Patient seen by Laura RIZZO under my supervision Patient was admitted after she had C6-C7 discectomy and decompression with arthroplasty for left C6-C7 disc herniation and left C7 myelopathy and weakness. She was admitted to be monitored overnight for pain control. Patient had no complaints and pain was well controlled with current pain meds. Plan is to continue pain regimen as prescribed by surgeon. For discharge on 08/17/2018 his pain is well controlled. SPine surgeon following. Patient was seen and examined. I agree with above note, assessment and plan by Laura RIZZO which I have reviewed and agree with. Code Visit OBSV E&M: 12510 Initial observation care L2
[2018-08-16] MEDS: HYDROcodone Bitartrate/Apap 5/325 Tablet PO (18:37)
--- NOTE | 2018-08-16 18:57 | PCM.PN.SRG ---
- Physical Exam Vital Signs Temp Pulse Resp BP Pulse Ox 98.1 F 76 16 115/76 100 08/16/18 16:36 08/16/18 16:36 08/16/18 16:36 08/16/18 16:36 08/16/18 16:36 Oxygen Delivery Method Room Air Weight: 197 lb 12.074 oz Body Mass Index (BMI) 33.9 Intake and Output for Last 24 Hours 08/14/18 08/15/18 08/16/18 23:59 23:59 23:59 Intake Total 3200 / 3200 Balance 3200 / 3200 Laboratory Tests Past 24 Hrs 08/16/18 07:00 Urine Test Negative Medical Necessity - Tobacco Use Smoking Status: Never smoker Assessment/Plan Patient with postoperative neck pain. Plan for admission to hospitalist service overnight. Radiographs reviewed and stable. Case discussed with Laura Ken NP, hospitalist. Spoke with patient via telephone. She complains of posterior neck pain and stable paresthesias and weakness in the left arm that was present preop. She is no worse. She denies dysphagia. Has some sore throat. Reviewed medications to include resumption of mobic and as needed percocet, as well as, postoperative restrictions. Follow up in 3 weeks at my [place] clinic. She verbalized understanding and was appreciative of the call.
[2018-08-16] MEDS: Ibuprofen 400 MG Tablet 800 MG PO (20:35)
[2018-08-16] MEDS: 0.9% NaCl IVPB Med Flush (250 mL) 15 ML IV (22:30)
[2018-08-17] MEDS: 0.9% NaCl Peripheral Flush Adult/Peds IV ×2 (00:27→00:36)
[2018-08-17 00:28] VITALS: BP 108/57; PULSE 73; RESP 16; TEMP 36.6; O2SAT 100
[2018-08-17] MEDS: HYDROcodone Bitartrate/Apap 5/325 Tablet PO ×2 (00:34→10:05)
[2018-08-17 02:30] VITALS: BP 111/59; PULSE 65; RESP 18; TEMP 36.8; O2SAT 100
[2018-08-17] MEDS: Ibuprofen 400 MG Tablet 800 MG PO (06:31)
[2018-08-17 08:00] VITALS: BP 119/72; PULSE 75; RESP 16; TEMP 36.9; O2SAT 100
[2018-08-17] MEDS: Lisinopril 5 MG Tablet PO (10:05)
--- NOTE | 2018-08-17 10:10 | DCINST_ITS ---
- Discharge Diagnoses Current Active Problems: Current Active and Chronic Problems Cervical radiculopathy at C7 (Chronic) HTN (hypertension) (Chronic) You will use the following diet at home:: Cardiac Your food should be the consistency of: Regular Your liquids should be the consistency of: Regular/Thin Discharge Activity: May not drive while taking narcotic pain medications., - - no overhead lifting or lifting greater than 5 pounds. sitting up at 30 degrees at time. May shower in (days): 5 Weight Bearing Status: Weight bearing as tolerated Call your doctor if your incision/area has: Continuous Slow Oozing, Sudden Increased Bleeding, Increased Pain/ Swelling, Increased Redness, Foul Smelling Discharge, Swelling at the incision site Call your doctor if you observe: Fever of 101 or Higher, Numbness or Tingling, Change in Color, Inability to urinate, Shortness of breath, Dizziness, Fainting spells, Chest pain, Increased palpitations (irregular heartbeat), Calf discomfort, Uncontrolled pain Suture Line Care: Avoid Pulling/Pushing, Avoid Pinching/Bending Change Dressing in (Days):: 2 Remove Dressing in (days):: 2 Cleanse incision/area with: Do not get Incision Wet - for 5 days after surgery Allergies/Adverse Reactions: Allergies Sulfa (Sulfonamide Antibiotics) Adverse Reaction (Verified 08/15/18 12:57) Low platelets sulfamethoxazole [From Bactrim] Adverse Reaction (Verified 08/15/18 12:57) Low platelets trimethoprim [From Bactrim] Adverse Reaction (Verified 08/15/18 12:57) Low platelets Medications to take at Discharge Fluticasone 0.05% [Flonase Nasal [place]] 1 spray NASAL DAILY 08/09/18 Lisinopril [Prinivil] 5 mg PO DAILY 08/09/18 Tizanidine HCl [Zanaflex] 4 mg PO [id number] 08/09/18 Oxycodone HCl/Acetaminophen [Percocet 5-325 mg Tablet] 2 ea PO 4X/DAY PRN PRN 7 Days #84 tab MDD 12 08/16/18 The following prescriptions were given: Oxycodone HCl/Acetaminophen [Percocet 5-325 mg Tablet] 2 ea PO 4X/DAY PRN PRN 7 Days #84 tab MDD 12 PRN Reason: Pain Primary Care Physician: Chicho Keane MD [Primary Care Provider] - Please follow up with your Primary Care Physician in: 2 weeks for wound check Test Results: Test results from this visit will be discussed in further detail at your follow- up appointment, if applicable. Please Follow Up With: Pam Rodriguez MD When: 3 weeks Proposed Discharge Date: 08/17/18
--- NOTE | 2018-08-17 10:11 | PCM.DC.SUM ---
Discharge Date and Diagnosis Date of Admission: 08/16/18 Date of Discharge: 08/17/18 - Secondary Discharge Diagnosis Chronic Problems Cervical radiculopathy at C7 (Chronic) HTN (hypertension) (Chronic) Hospital Course and Treatment Imaging Results: Diagnostic Data Cervical Spine X-Ray 08/16/18 14:00 IMPRESSION: A prosthetic disc spacer is seen at the C6-C7 level. Electronically Signed: Jeronimo Sierra MD at 14:47 EST Tel [phone], Service support , ADDENDUM: 08/17/18 0823 Operations: - - cervical TDR C6-7 Procedures: None Summary of Care Provided: Patient is a 33-year-old female who was admitted status post C5 C7 discectomy, decompression and arthroplasty on 08/16/2018. Patient had presented to spine surgeon was significant neck pain and left C7 radiculopathy and weakness. Preoperative imaging demonstrated a large left C6-C7 disc extrusion with severe foraminal stenosis. Subsequently had surgery which was uneventful. He subsequently complained of severe pain at surgical site and so was admitted for overnight monitoring and pain control. Patient remained stable and pain subsequently improved significantly. She was discharged home on 08/17/2018. She is to follow-up with her PCP and with spine surgeon Dr. Rodriguez in 3 weeks. Patient seen and examined prior to discharge. She complained of some paresthesia in her left hand which is not new. Pain is well controlled. She denies any fever or chills, cough or chest pain, shortness of breath abdominal pain, diarrhea vomiting. Review of systems otherwise negative. Labs and vitals reviewed. Home medications reviewed and reconciled. Given a prescription for pain medication (oxycodone/acetaminophen) by spine surgeon Dr Rodriguez- (percocet 5-325 mg) 2 prn 4x daily x 84 tablets. o/e: Vital Signs Height 5 ft 4 in Weight: 197 lb 12.074 oz Weight in Pounds 197.8 lbs Pulse Ox 100 Temperature 97.8 F Pulse Rate 73 Respiratory Rate 16 Blood Pressure 115/61 Blood Pressure Position Semi-Fowlers General: Alert, Oriented x3, Cooperative, No apparent distress HEENT: Atraumatic, PERRLA, EOMI, Normocephalic Neck: Supple, No JVD, Negative Carotid Bruits; in cervical soft neck collar Lungs: Clear to auscultation, Normal air movement Cardiovascular: Regular rate, Regular Rhythm, Normal S1, Normal S2, No murmurs Abdomen: Bowel Sounds Present, Soft, Non Tender, Non-Distended Extremities: No clubbing, No cyanosis, No edema, Capillary Refill Less than 3 Seconds Skin: No rashes, No breakdown Musculoskeletal: No Tenderness to Palpation of Joints or Extremities, Neurological: Cranial nerves II-XII grossly intact, Neuro grossly intact, - - Left hand radiculopathy Psych/Mental Status: Normal Affect, Appropriate - Physical Exam Vital Signs Temp Pulse Resp BP Pulse Ox 98.5 F 75 16 119/72 100 08/17/18 08:00 08/17/18 08:00 08/17/18 08:00 08/17/18 08:00 08/17/18 08:00 Oxygen Delivery Method Room Air Weight: 197 lb 12.074 oz Body Mass Index (BMI) 33.9 Intake and Output for Last 24 Hours 08/15/18 08/16/18 08/17/18 23:59 23:59 23:59 Intake Total 3200 / 3200 920 / 920 Balance 3200 / 3200 920 / 920 Discharge Diet: Low fat/ Low Cholesterol Discharge Activity: May not drive while taking narcotic pain medications., - - no overhead lifting or lifting greater than 5 pounds. sitting up at 30 degrees at time. May shower in (days): 5 Weight Bearing Status: Weight bearing as tolerated Call your doctor if your incision/area has: Continuous Slow Oozing, Sudden Increased Bleeding, Increased Pain/ Swelling, Increased Redness, Foul Smelling Discharge, Swelling at the incision site Call your doctor if you observe: Fever of 101 or Higher, Numbness or Tingling, Change in Color, Inability to urinate, Shortness of breath, Dizziness, Fainting spells, Chest pain, Increased palpitations (irregular heartbeat), Calf discomfort, Uncontrolled pain Suture Line Care: Avoid Pulling/Pushing, Avoid Pinching/Bending Change Dressing in (Days):: 2 Remove Dressing in (days):: 2 Cleanse incision/area with: Do not get Incision Wet - for 5 days after surgery Home Medications: Medications to take at Discharge Fluticasone 0.05% [Flonase Nasal [place]] 1 spray NASAL DAILY 08/09/18 Lisinopril [Prinivil] 5 mg PO DAILY 08/09/18 Tizanidine HCl [Zanaflex] 4 mg PO [id number] 08/09/18 Oxycodone HCl/Acetaminophen [Percocet 5-325 mg Tablet] 2 ea PO 4X/DAY PRN PRN 7 Days #84 tab MDD 12 08/16/18 Following Prescrptions Were Given to Patient: Oxycodone HCl/Acetaminophen [Percocet 5-325 mg Tablet] 2 ea PO 4X/DAY PRN PRN 7 Days #84 tab MDD 12 PRN Reason: Pain Primary Care Physician: Chicho Keane MD [Primary Care Provider] - Please follow up with your Primary Care Physician in: 2 weeks for wound check Please Follow Up With: Pam Rodriguez MD When: 3 weeks Disposition: Home Minutes spent on discharge:: 35 Patient Condition:: Stable Medical Necessity - Tobacco Use Smoking Status: Never smoker Meaningful Use Info Meaningful Use Diagnoses (Choose all that apply): None applicable Code Visit Inpatient E&M: 81171 Disch Hosp
[2018-08-17 11:25] VITALS: BP 115/61; PULSE 73; RESP 16; TEMP 36.6; O2SAT 100
--- OUTSIDE RECORDS SUMMARY | 2018-10-18 06:54 | XMS RPT_ITS ---
:1985 Author Organization OHIP Support Name Relationship Address Phone TAPANLEONARD FERRER Unavailable [address] + [place] [address] [facility] Unavailable [address] + [place] [address] [facility]ARCHIE Unavailable [address] + [place] [address] LEONARD DAVIDSON Unavailable [address] + [place] [address] [facility] Unavailable [address] + [place] [address] [facility] Unavailable [address] + [place] [address] LEONARD DAVIDSON Unavailable [address] + [place] [address] [facility] Unavailable [address] + [place] [address] [facility]ARCH[facility] Unavailable [address] + [place] [address] LEONARD DAVIDSON Unavailable [address] + [place] [address] [facility] Unavailable [address] + [place] [address] L[facility]ARCH[facility] Unavailable [address] + [place] [address] LEONARD DAVIDSON Unavailable [address] + [place] [address] [facility] Unavailable [address] + [place] [address] L[facility] Unavailable [address] + [place] [address] TapanJason ferrers Unavailable Unavailable + TAPANJASON FERRERS Unavailable [address] + [place] [address] [facility] Unavailable [address] + [place] [address] L[facility] Unavailable [address] + [place] [address] TAPAN VALLE Unavailable [address] + [place] [address] WC Unavailable [address] + [place] [address] L[facility] Unavailable [address] + [place] [address] Jason Davidsons Unavailable Unavailable + TAPAN, VALLE Unavailable Unavailable + TAPAN, VALLE Unavailable Unavailable + TAPAN, VALLE Unavailable [address] + [place] [address] [facility] Unavailable [address] + [place] [address] L[facility]ARCH[facility] Unavailable [address] + [place] [address] JASON DAVIDSONS Unavailable [address] + [place] [address] WC Unavailable [address] + [place] [address] LJ [facility]ARCH[facility] Unavailable [address] + [place] [address] TAPAN VALLE Unavailable [address] + [place] [address] WC Unavailable [address] + [place] [address] L[facility] Unavailable [address] + [place] [address] Care Team Providers Name Role Phone GUALBERTO WILSON Referring Unavailable GUALBERTO WILSON Attending Unavailable GUALBERTO WILSON Referring Unavailable JULISSA WHEELER (COMBAT SYSTEMS OFFICER) Referring Unavailable GUALBERTO WILSON Attending Unavailable BOWEN, DELMI (RETAIL OPERATIONS SPECIALIST) Attending Unavailable EILEEN Moreno Attending Unavailable STEVE GAUTAM, GUALBERTO BOLTON Primary Care Unavailable Surya Casas Attending Unavailable PROVIDER, UNKNOWN Referring Unavailable Kontak, Chicho Primary Care Unavailable Surya Casas Attending Unavailable PROVIDER, UNKNOWN Referring Unavailable Kontak, Chicho Primary Care Unavailable Lj Wilsonrey Attending Unavailable Kontak, Chicho Referring Unavailable Kontak, Chicho Primary Care Unavailable Koram, Kayla Laurence Attending Unavailable Rodriguez, Pam Referring Unavailable Kontak, Chicho Primary Care Unavailable Laura Ken COMBAT SYSTEMS OFFICER-C Consulting Unavailable Koram, Kayla Laurence Consulting Unavailable Kontak, Chicho Primary Care Unavailable Fer Fan Attending Unavailable Kontak, Chicho Primary Care Unavailable Mic Mcmahan Attending Unavailable Laura Ken COMBAT SYSTEMS OFFICER-C Attending Unavailable Jennifer, Pam Referring Unavailable Kontak, Chicho Primary Care Unavailable Laura Ken COMBAT SYSTEMS OFFICER-C Consulting Unavailable Koram, Kayla Laurence Consulting Unavailable Jennifer, Pam Attending Unavailable Rodriguez, Pam Referring Unavailable Kontak, Chicho Primary Care Unavailable Rodriguez, Pam Consulting Unavailable Rodriguez, Pam Attending Unavailable Rodriguez, Pam Referring Unavailable Kontak, Chicho Primary Care Unavailable Rodriguez, Pam Referring Unavailable Kontak, Chicho Primary Care Unavailable Laura Ken COMBAT SYSTEMS OFFICER-C Consulting Unavailable Koram, Kayla Laurence Attending Unavailable Rodriguez, Pam Attending Unavailable Rodriguez, Pam Referring Unavailable Kontak, Chicho Primary Care Unavailable Rodriguez, Pam Attending Unavailable Kontak, Chicho Referring Unavailable PROBLEMS PROBLEMS DATE TYPE CONDITION / CODE ATTENDING STATUS SOURCE 08/20/2018 Unknown Z98.1 - Arthrodesis Koram, Kayla Laurence Active [facility] status / Community Z98.1(ICD-10) Hospital Repository 08/02/2018 Unknown M54.12 - Rodriguez, Pam Active [facility] Radiculopathy, [facility] cervical region / Hospital M54.12(ICD-10) Repository 08/02/2018 Unknown M54.2 - Cervicalgia Rodriguez, Pam Active [place] / M54.2(ICD-10) [facility] Hospital Repository 07/28/2018 Admitting Encounter for other Surya Casas Yazino Diagnosis preprocedural System examination / Repository Z01.818(ICD-10) 07/28/2018 Admitting Radiculopathy, Surya Casas Yazino Diagnosis cervical region / System M54.12(ICD-10) Repository 07/28/2018 Admitting Other cervical disc Surya Casas Yazino Diagnosis disorders, System unspecified Repository cervical region / M50.80(ICD-10) 07/28/2018 Admitting Elevated Surya Casas Yazino Diagnosis blood-pressure System reading, w/o Repository diagnosis of htn / R03.0(ICD-10) 07/28/2018 Admitting Other obesity / Surya Casas [facility] Diagnosis E66.8(ICD-10) System Repository 07/28/2018 Admitting Body mass index Surya Casas [place] Diagnosis (BMI) 33.0-33.9, System adult / Repository Z68.33(ICD-10) 07/07/2018 Admitting Encounter for EILEEN Moreno Active [facility] Diagnosis general adult [facility] medical examination Repository without abnormal findings / Z00.00(ICD-10) 05/18/2018 Unknown M54.9 - Dorsalgia, Mic Mcmahan [facility] unspecified / Community M54.9(ICD-10) Hospital Repository PROCEDURES PROCEDURES No Procedure Records FoundRESULTS RESULTS DISCHARGE SUMMARY Observed: 08/17/2018 Status: F Source: [place] 1:[address] [facility] REPOSITORY [facility] Medical Records Department [address] [place] [address] Discharge Summary 08/17/18 1011 MR#: [id number] Acct: [id number] Name: TUYET DAVIDSON Rep #: [id number] : 1985 33 From: Kayla Colorado MD PCP: Chicho Wilson MD Status: DEP [facility] Y Location: [facility] Discharge Date and Diagnosis Date of Admission: 08/16/18 Date of Discharge: 08/17/18 - Secondary Discharge Diagnosis Chronic Problems Cervical radiculopathy at C7 (Chronic) HTN (hypertension) (Chronic) Hospital Course and Treatment Imaging Results: Diagnostic Data Cervical Spine X-Ray 08/16/18 14:00 IMPRESSION: A prosthetic disc spacer is seen at the C6-C7 level. Electronically Signed: Jeronimo Sierra MD at 14:47 EST Tel [phone], Service support , ADDENDUM: 08/17/18 0823 Operations: [...] take at Discharge Fluticasone 0.05% [Flonase Nasal [place]] 1 spray NASAL DAILY 08/09/18 Lisinopril [Prinivil] 5 mg PO DAILY 08/09/18 Tizanidine HCl [Zanaflex] 4 mg PO [id number] 08/09/18 Oxycodone HCl/Acetaminophen [Percocet 5-325 mg Tablet] [...] applicable Code Visit Inpatient E AND M: 71528 Disch Hosp 08/17/18 1353 <Electronically signed by Kayla Colorado MD> Date Kayla Coloardo MD Cosigner Signature (if applicable): Date CC: Chicho Wilson MD; Kayla Colorado MD Signed HISTORY AND PHYSICAL Observed: 08/17/2018 Status: F Source: [place] EXAM 1:[address] [facility] REPOSITORY [facility] Medical Records Department [address] [place] [address] History and Physical 08/16/18 1747 MR#: [id number] Acct: [id number] Name: TUYET DAVIDSON Rep #: [id number] : 1985 33 From: Laura Ken COMBAT SYSTEMS OFFICER-C PCP: Chicho Wilson MD Status: [facility] Y Location: [facility] <Laura Ken - Last Filed: 08/16/18 18:06> [...] [Flonase Nasal 1 spray NASAL DAILY 08/09/18 [place]] Lisinopril [Prinivil] 5 mg PO DAILY 08/09/18 Surgical History: - - C6-C7 discectomy, decompression, arthroplasty. Kidney stone removal. Psychiatric History: No pertinent psych hx PUBLIC AREA SUPERVISOR History: No pertinent PUBLIC AREA SUPERVISOR history Smoking Status: Never smoker Alcohol: None [...] with. Code Visit OBSV E AND M: 01391 Initial observation care L2 08/16/18 1806 <Electronically signed by Laura RIZZO> Date Laura RIZZO 08/17/18 1340<Electronically signed by Kayla [place] MD> Cosigner Signature: Date (if applicable) Kayla Colorado MD CC: SO Ken; Chicho Wilson MD; Kayla Colorado MD Signed DISCHARGE INSTRUCTION Observed: 08/17/2018 Status: F Source: [place] [facility] Medical Records Department [address] [place] [address] Instructions for Home/Discharge Instructions 08/17/18 1008 MR#: [id number] Acct: [id number] Name: TUYET DAVIDSON Rep #: [id number] : 1985 33 From: Kayla Colorado MD [...] take at Discharge Fluticasone 0.05% [Flonase Nasal [place]] 1 spray NASAL DAILY 08/09/18 Lisinopril [Prinivil] 5 mg PO DAILY 08/09/18 Tizanidine HCl [Zanaflex] 4 mg PO [id number] 08/09/18 Oxycodone HCl/Acetaminophen [Percocet 5-325 mg Tablet] [...] Colorado MD> Date Kayla Colorado MD CC: COMBAT SYSTEMS OFFICER-Melania Ken; Chicho Wilson MD Signed DISCHARGE SUMMARY Observed: 08/16/2018 Status: F Source: [place] 11:[address] [facility] REPOSITORY [facility] Medical Records Department [address] [place], [place] [address] [address] Discharge Summary 08/16/18 1134 MR#: [id number] Acct: [id number] Name: TUYET DAVIDSON Rep #: [id number] : 1985 33 From: Pam Rodriguez MD PCP: Chicho Wilson MD Status: REG [facility] Y Location: [place] [address] Discharge Date and Diagnosis - Problem List [...] take at Discharge Fluticasone 0.05% [Flonase Nasal [place]] 1 spray NASAL DAILY 08/09/18 Lisinopril [Prinivil] 5 mg PO DAILY 08/09/18 Tizanidine HCl [Zanaflex] 4 mg PO [id number] 08/09/18 Oxycodone HCl/Acetaminophen [Percocet 5-325 mg Tablet] [...] DISCHARGE INSTRUCTION Observed: 08/16/2018 Status: F Source: [place] 11:[address] [facility] REPOSITORY [facility] Medical Records Department [address] [place] [address] Instructions for Home/Discharge Instructions 08/16/18 1131 MR#: [id number] Acct: [id number] Name: TUYET DAVIDSON Rep #: [id number] : 1985 33 From: Pam Rodriguez MD PCP: Chicho Wilson MD Status: REG [facility] - Discharge Diagnoses Current Active Problems: Current [...] take at Discharge Fluticasone 0.05% [Flonase Nasal [place]] 1 spray NASAL DAILY 08/09/18 Lisinopril [Prinivil] 5 mg PO DAILY 08/09/18 Tizanidine HCl [Zanaflex] 4 mg PO [id number] 08/09/18 Oxycodone HCl/Acetaminophen [Percocet 5-325 mg Tablet] [...] 08/16/2018 Status: F Source: [place] 11:[address] [facility] REPOSITORY [facility] Medical Records Department [address] [place] [address] Operative Report 08/16/18 1128 MR#: [id number] Acct: [id number] Name: TUYET DAVIDSON Rep #: [id number] : 1985 33 From: Pam Rodriguez MD PCP: Chicho Wilson MD Status: REG [facility] Y Location: [place] [address] Problem List (1) Cervical radiculopathy at C7 [...] of intraoperative neuromonitoring. SURGEON: Pam Rodriguez MD. CASKET ASSEMBLER METAL: WILLIAM Hernandez. ANESTHESIA: General. ESTIMATED BLOOD LOSS: [...] anesthesia colleagues uneventfully. Preoperative antibiotics were initiated. KLELE hose and SCDs were placed on bilateral [...] were obtained to confirm the operative level. [place] pins were then placed in the C6 [...] space. Intraoperative fluoroscopy demonstrated excellent placement. The [place] pins were then removed. The wound was [...] OR 3 Observed: 08/16/2018 Status: F Source: [facility] 11:[address] [facility] REPOSITORY [facility] Imaging Services [address] [place] [address] Cerv Spine 2 or 3 Views MR#: [id number] Acct: [id number] Name: TUYET DAVIDSON Rep #: [id number] : 1985 F 33 From: Jeronimo Sierra MD PCP: Chicho Wilson MD Status: [employer] Study: Cerv Spine 2 or 3 Views Date of Exam: 08/16/18 Exam# [id number] Ordering Dr: Pam Rodriguez MD ADDENDUM by Jeronimo Sierra MD on 08/17/18 at 0816 ADDENDUM This is an addendum report. The prosthetic disc is at the C6-C7 level. Electronically Signed: Jeronimo Sierra MD at 8:16 EST Tel [phone], Service support , 08/17/18815 Date cc: Pam [...] Jeronimo Sierra MD at 14:47 EST Tel [phone], Service support , CC: Pam Rodriguez MD; Chicho Wilson MD Ticket Collector: Signed ,URINE Collected: 08/16/2018 Status: F Source: [place] 7:[address] [facility] REPOSITORY Order Comment: Reason for Laboratory Test PRE-OP TYPE CODE TESTS RESULT OUT OF REFERENCE UNITS RANGE LAB L400.8000 Negative Normal HCGUQUAL Negative Result Comment: Very dilute urine specimens, as indicated by a low specific gravity, may not contain it sales representative levels of hCG. If is still suspected, a first morning urine specimen should be collected 48 hours later and tested. Performed By: #### L400.7600 #### [facility] [address] [place], [address] CERV SPINE 2 OR 3 Observed: 08/16/2018 Status: F Source: [place] VIEWS 12:[address] [facility] REPOSITORY [facility] Imaging Services [address] [facility] [place] [address] Cerv Spine 2 or 3 Views MR#: [id number] Acct: [id number] Name: TUYET DAVIDSON Rep #: [id number] : 1985 F 33 From: Jeronimo Sierra MD PCP: Chicho Wilson MD Status: [employer] Study: Cerv Spine 2 or 3 Views Date of Exam: 08/16/18 Exam# [id number] Ordering Dr: Pam Rodriguez MD STUDY: X-RAY [...] Jeronimo Sierra MD at 12:54 EST Tel [phone], Service support , CC: Pam Rodriguez MD; Chicho Wilson MD Ticket Collector: Signed SPINE CERVICAL Observed: 08/11/2018 Status: F Source: [place] (ROUTINE) 4:[address] [facility] REPOSITORY [facility] Imaging Services [address] [place] [address] Spine Cervical (Routine) MR#: [id number] Acct: [id number] Name: TUYET DAVIDSON Rep #: [id number] : 1985 F 33 From: Margie Duval MD PCP: Chicho Wilson MD Status: REG CLI Study: Spine Cervical (Routine) Date of Exam: 08/11/18 Exam# [id number] Ordering Dr: Pam Rodriguez MD STUDY: MRI [...] CC: Pam Rodriguez MD; Chicho Wilson MD Ticket Collector: Signed CNNURSE Observed: 08/11/2018 Status: COMPLETED Source: [place] 3:15 PM [facility] REPOSITORY Nurse Visit (FAMPWS) TUYET DAVIDSON ([id number]) 1985 F Date Time Provider Department 08/11/18 3:15 PM [facility] During your visit today, we recorded the [...] Annalee Borges LPN Referring Provider: GUALBERTO WILSON [[id number]] Allergies As of Date: 08/11/2018 Noted Allergy [...] 08/11/18 PROGRESS Observed: 08/11/2018 Status: COMPLETED Source: [place] 2:54 PM [facility] REPOSITORY HNO ID: [id number] Author: Annalee Borges LPN Service: (none) Author [...] LPN CNPN Observed: 08/10/2018 Status: COMPLETED Source: [place] 12:00 AM [facility] REPOSITORY Telephone (FPWADS) TUYET DAVIDSON ([id number]) 1985 F Date Time Provider Department 08/10/18 GUALBERTO WILSONPRALVARO During your visit today, we recorded the following information about you: Laura Haddad Ma 08/10/2018 1:21 PM Addendum Received labs from [facility] 08/09/18. Will send to scanning once [...] Ma - Fully Assessed Reason for Visit: [facility] Labs 08/09/18 [Other] Prescriptions as of [...] Status: F Source: [place] (DIPSTICK) 8:[address] [facility] REPOSITORY Order Comment: How was Urine Obtained? [...] Negative Performed By: #### L400.2010, L400.7600 #### [facility] [address] [facility] [place], [place], [address] ,URINE Collected: 08/09/2018 Status: F Source: [place] 8:[address] [facility] REPOSITORY Order Comment: How was Urine Obtained? CLEAN CATCH TYPE CODE TESTS RESULT OUT OF REFERENCE UNITS RANGE LAB L400.8000 Negative Normal HCGUQUAL Negative Result Comment: Very dilute urine specimens, as indicated by a low specific gravity, may not contain it sales representative levels of hCG. If is still suspected, a first morning urine specimen should be collected 48 hours later and tested. Performed By: #### L400.2010, L400.7600 #### [facility] [address] [facility] [place], [place], [address] CBC W/DIFF, AUTOMATED Collected: 08/09/2018 Status: F Source: [place] 8:[address] [facility] REPOSITORY TYPE CODE TESTS RESULT OUT OF [...] Lymph 1.51 Performed By: #### L100.0100 #### [facility] [address] [place] [address], [address] PROTHROMBIN TIME W/INR Collected: 08/09/2018 Status: F Source: [place] 8:[address] [facility] REPOSITORY TYPE CODE TESTS RESULT OUT OF RANGE REFERENCE UNITS LAB L300.4150 11.7-14.9 SECONDS Normal PROTIME 13.2 LAB L300.4200 Normal INR 1.0 Performed By: #### L300.3900, L300.4310 #### [facility] [address] [place], [place], [address] PARTIAL THROMBOPLAST Collected: 08/09/2018 Status: F Source: [place] TIME 8:[address] [facility] REPOSITORY TYPE CODE TESTS RESULT OUT OF RANGE REFERENCE UNITS LAB L300.4310 24.1-36.2 Seconds Normal PTT 30.4 Performed By: #### L300.3900, L300.4310 #### [facility] [address] [place], [address] COMPREHENSIVE METABOLIC Collected: 08/09/2018 Status: F Source: [place] 8:[address] [facility] REPOSITORY TYPE CODE TESTS RESULT OUT OF [...] GAP 8 Performed By: #### L500.4050 #### [facility] [address] [place], [address] TYPE AND SCREEN Collected: 08/09/2018 Status: F Source: [place] 8:[address] [facility] REPOSITORY Order Comment: Surgery Date: 08/16/18 Hx of Preganancy in last 3 Months No Ever experience any problems with transfusion(s)? N Hx of Transfusion in last 3 Months N Reason for Type AND Screen/Red Cells: SURGERY SURGICAL PROCEDURE: 17051 TYPE CODE TESTS RESULT OUT OF RANGE REFERENCE UNITS LAB B10.0800 A Normal BLOOD TYPE GEL POSITIVE LAB B100.4000 Normal Antibody NEGATIVE Screen Performed By: #### B101.7475 #### [facility] [address] [facility] [place], [address] Observed: 08/09/2018 Status: F Source: [place] MRSA/SAID SCREEN 8:[address] [facility] REPOSITORY MRSA/SAID SCRN S. AUREUS S. aureus Positive MRSA MRSA Negative Performed By: #### M100.651 #### [facility] [address] [place], [address] PROGRESS Observed: 08/04/2018 Status: COMPLETED Source: [place] 9:31 AM [facility] REPOSITORY HNO ID: [id number] Author: Gualberto Wilson Service: (none) Author Type: [...] CYSTOSCOPY,URETEROSCOPY,STONE REMV 2004 - ORAL SURGERY PROCEDURE Patriot Teeth Removed Ureteroscopy. Patriot teeth. No probs with anesthesia. Family History [...] Take 1 tablet by mouth once daily. Rekdvhwy-Oj-Mxg-Fe-FA ( VITAMIN) ORAL Tab Take 1 tablet [...] MD CNOV Observed: 08/04/2018 Status: COMPLETED Source: [place] 9:20 AM [facility] REPOSITORY Office Visit (FPWADS) TUYET DAVIDSON ([id number]) 1985 F Date Time Provider Department 08/04/18 [...] CYSTOSCOPY,URETEROSCOPY,STONE REMV 2004 - ORAL SURGERY PROCEDURE Patriot Teeth Removed Ureteroscopy. Patriot teeth. No probs with anesthesia. Family History [...] Take 1 tablet by mouth once daily. Ynaokllg-Mu-Szb-Fe-FA ( VITAMIN) ORAL Tab Take 1 tablet [...] Gualberto Wilson MD Referring Provider: GUALBERTO WILSON [[id number]] Allergies As of Date: 08/04/2018 Noted Allergy [...] ORTHOPEDIC VISIT Observed: 08/02/2018 Status: F Source: [place] REPORT 7:[address] [facility] REPOSITORY [facility] [address] [place] [address] OFFICE VISIT Date of Service: 08/02/18 MR#: [id number] Acct: [id number] Name: TUYET DAVIDSON Rep #: [id number] : 1985 Provider: Pam Rodriguez MD Age/Sex: 32/F Location: [facility] Status: Signed Intake Vital Signs08/02/18 Body Mass [...] [Rx] Tizanidine HCl [Zanaflex] 4 mg PO [id number] #30 tab 06/15/18 [Rx] PFSH Social History [...] to have surgery with Dr Casas in [place] for artificial disc C5/6 and C6/7. She would like another opinion. She denies nicotine use. She is a nurse at [employer]. Ortho Exam Spine Neuro: Yes [...] Status: F Source: [place] VIEWS 8:[address] [facility] REPOSITORY [facility] Imaging Services [address] [place] [address] Cerv Spine 4 or 5 Views MR#: [id number] Acct: [id number] Name: TUYET DAVIDSON Rep #: [id number] : 1985 F 32 From: Wilian Schulz MD PCP: Chicho Wilson MD Status: REG CLI Study: Cerv Spine 4 or 5 Views Date of Exam: 08/02/18 Exam# [id number] Ordering Dr: Pam Rodriguez MD HISTORY: PBack [...] CC: Pam Rodriguez MD; Chicho Wilson MD Ticket Collector: Signed HEMOGRAM Collected: 07/28/2018 Status: F Source: [facility] 10:08 AM SYSTEM REPOSITORY TYPE CODE TESTS [...] By: #### HEMOG, PT, APTT, BMP3 #### [facility] [address] [place] [phone] PROTHROMBIN TIME Collected: 07/28/2018 Status: F Source: [facility] 10:08 AM SYSTEM REPOSITORY TYPE CODE TESTS [...] By: #### HEMOG, PT, APTT, BMP3 #### [facility] [address] [place] [phone] APTT Collected: 07/28/2018 Status: F Source: [facility] 10:08 AM SYSTEM REPOSITORY TYPE CODE TESTS RESULT OUT OF RANGE REFERENCE UNITS LAB PTTA 20.0-30.5 s Normal APTT 22.0 Result Comment: NOTE: The therapeutic time for Heparin anticoagulation, based on Xa activity inhibition, is an APTT of 46-80 seconds. Performed By: #### HEMOG, PT, APTT, BMP3 #### [facility] [employer] [address] [address] BASIC METABOLIC PANEL Collected: 07/28/2018 Status: F Source: [facility] 10:08 AM SYSTEM REPOSITORY TYPE CODE TESTS [...] By: #### HEMOG, PT, APTT, BMP3 #### [facility] [employer] [address] [address] GLU Collected: 07/07/2018 Status: F Source: [facility] 2:03 PM [facility] REPOSITORY TYPE CODE TESTS RESULT OUT OF REFERENCE UNITS RANGE LAB GLU(LOINC) 70-105 mg/dL Glucose Level 80 Performed By: #### GLU, LIPID #### [facility] [address] [place] [address] LIPID Collected: 07/07/2018 Status: F Source: [facility] 2:03 PM [facility] REPOSITORY TYPE [...] 140 Performed By: #### GLU, LIPID #### [place] [address] PROGRESS Observed: 07/05/2018 Status: COMPLETED Source: [place] 9:31 AM [facility] REPOSITORY HNO ID: [id number] Author: Annalee Borges LPN Service: (none) Author [...] LPN CNNURSE Observed: 07/05/2018 Status: COMPLETED Source: [place] 9:30 AM [facility] REPOSITORY Nurse Visit (FAMPWS) TAPANTUYET FRERER ([id number]) 1985 F Date Time Provider Department 07/05/18 9:30 AM [place] NURSE MIKO During your visit today, we [...] any further instructions after review by PCP. Ananlee Borges LPN Referring Provider: JULISSA FRANK (RACHID) [[id number]] Allergies As of Date: 07/05/2018 Noted Allergy [...] on 07/05/18 Observed: 06/29/2018 Status: F Source: [place] URINE CULTURE 5:30 PM [facility] REPOSITORY Sp. Request/Comment: - Specimen received [...] <=0.5 F Performed By: #### URCUL #### [facility] [address] [place], [place] [address] PROGRESS Observed: 06/29/2018 Status: COMPLETED Source: [place] 5:[address] [facility] REPOSITORY HNO ID: [id number] Author: Julissa Warren (Rachid) Sd Service: (none) [...] CYSTOSCOPY,URETEROSCOPY,STONE REMV 2004 - ORAL SURGERY PROCEDURE Patriot Teeth Removed ALLERGIES Bactrim [Sulfamethoxazole]; Sulfa (Sulfonamide [...] Take 1 tablet by mouth once daily. Yxxgbfto-Bx-Dbr-Fe-FA ( VITAMIN) ORAL Tab Take 1 tablet [...] APRN.REGINE CNOV Observed: 06/29/2018 Status: COMPLETED Source: [place] 5:00 PM [facility] REPOSITORY Office Visit (WSTR) TUYET DAVIDSON ([id number]) 1985 F Date Time Provider Department 06/29/18 5:00 PM JULISSA FRANK (COMBAT SYSTEMS OFFICER) [facility] During your visit today, we recorded [...] CYSTOSCOPY,URETEROSCOPY,STONE REMV 2004 - ORAL SURGERY PROCEDURE Patriot Teeth Removed ALLERGIES Bactrim [Sulfamethoxazole]; Sulfa (Sulfonamide [...] Take 1 tablet by mouth once daily. Rharbitl-Gy-Fvb-Fe-FA ( VITAMIN) ORAL Tab Take 1 tablet [...] Patient agreeable to treatment plan. Julissa Frank, VARSHA.RETAIL OPERATIONS SPECIALIST Referring Provider: SELF [200] Allergies As of Date: 06/29/2018 Noted Allergy Reaction BACTRIM (SULFAMETHOXAZOLE) 06/07/2014 2 - Rash 14 - Other: See Comments Comments: thrombocytopenia SULFA (SULFONAMIDE ANTIBIOTICS) 08/11/2014 14 - Other: See Comments Comments: Thrombocytopenia. Date Reviewed: 06/29/2018 Reviewed by: Julissa Warren (Accounting Assistant) Sd - Fully Assessed Reason for Visit: Urinary Problem [252] Cmt: pain with urination, abdominal pain x 6 days, low grade fever x today Reason For Visit History Recorded Primary Visit Diagnosis:Pain with urination [R30.9] Other Visit Diagnosis:Acute cystitis with hematuria [N30.01] Order(s):UA DIP, URINE (POC) [6250598] Order #: [id number]. #:[id number] URINE CULTURE [SQURCUL] Order #: [id number] cephALEXin (KEFLEX) 500 mg capsuleTake 1 capsule [...] Status: F Source: [place] SUMMARY 9:[address] [facility] REPOSITORY [facility] Medical Records Department [address] [place] [address] Emergency Department Summary 06/15/18 0947 MR#: [id number] Acct: [id number] Name: TUYET DAVIDSON Rep #: [id number] : 1985 32 From: Vinny Fan MD [...] subsequent visit This note was generated with PWA dictation software. It may contain incorrect words, [...] box Tizanidine HCl [Zanaflex] 4 mg PO [id number] #30 tablet Referrals: Chicho Wilson MD [Primary Care Provider] - What to do if you have Problems For any increased pain, shortness of breath, bleeding, nausea or vomiting, chest pain, or any unexpected problems, contact your Primary Care Provider. Call [facility] ([phone]) or report to the closest Emergency Room. Call 911 if necessary. 06/15/18 0953 <Electronically signed by Vinny Fan MD> Date Vinny Fan MD Cosigner Signature (If Indicated): Date CC: Chicho Wilson MD SPINE CERVICAL Observed: 05/31/2018 Status: F Source: [place] (ROUTINE) 5:[address] [facility] REPOSITORY [facility] Imaging Services [address] [place] [address] Spine Cervical (Routine) MR#: [id number] Acct: [id number] Name: TUYET DAVIDSON Rep #: [id number] : 1985 F 32 From: Mark Brewer MD PCP: Chicho Wilson MD Status: REG CLI Study: Spine Cervical (Routine) Date of Exam: 05/31/18 Exam# [id number] Ordering Dr: Chicho Wilson MD STUDY: MRI [...] Service support , CC: Chicho Wilson MD Ticket Collector: Signed PROGRESS Observed: 05/24/2018 Status: COMPLETED Source: [place] 10:[address] [facility] [place] REPOSITORY HNO ID: [id number] Author: Gualberto Wilson Service: (none) Author Type: [...] CYSTOSCOPY,URETEROSCOPY,STONE REMV 2004 - ORAL SURGERY PROCEDURE Patriot Teeth Removed Family History FAMILY HISTORY Problem [...] Take 1 tablet by mouth once daily. Prbbizul-Ch-Lyj-Fe-FA ( VITAMIN) ORAL Tab Take 1 tablet [...] L index and 3rd finger weak on baking assistant strength. Pain on palpation of L rhomboid [...] MD CNOV Observed: 05/24/2018 Status: COMPLETED Source: [place] 10:00 AM [facility] REPOSITORY Office Visit (WADS) TUYET DAVIDSON ([id number]) 1985 F Date Time Provider Department 05/24/18 [...] CYSTOSCOPY,URETEROSCOPY,STONE REMV 2004 - ORAL SURGERY PROCEDURE Patriot Teeth Removed Family History FAMILY HISTORY Problem [...] Take 1 tablet by mouth once daily. Mhlkyavn-Vt-Udm-Fe-FA ( VITAMIN) ORAL Tab Take 1 tablet [...] L index and 3rd finger weak on baking assistant strength. Pain on palpation of L rhomboid [...] region [M54.12] Order(s):MRI CERVICAL SPINE CIERRA BOYER [[id number]] Order #: [id number] FUTURE Prescriptions as of 05/24/2018 Sig: NAPROXEN [...] LEAD ELECTROCARDIOGRAM Observed: 05/20/2018 Status: F Source: [place] 1:[address] [facility] REPOSITORY [facility] Cardiovascular Services [address] [place] [address] 12 Lead EKG 05/18/18 1002 MR#: [id number] Acct: [id number] Name: TUYET DAVIDSON Rep #: [id number] : 1985 32 From: Surya Acosta MD [...] (limb leads) Confirmed by KARLA BUCHANAN, SURYA ([id number]), food editor SHANNAN DUVAL ([id number]) on 05/20/2018 1:22:45 PM Referred By: HELGA Confirmed By:SURYA ACOSTA MD 05/20/18 1322 Date Surya Acosta MD CC: Chicho Wilson MD; Mic Mcmahan MD Signed EMERGENCY DEPARTMENT Observed: 05/18/2018 Status: F Source: [place] SUMMARY 6:[address] [facility] REPOSITORY [facility] Medical Records Department [address] [place] [address] Emergency Department Summary 05/18/18 0953 MR#: [id number] Acct: [id number] Name: TUYET DAVIDSON Rep #: [id number] : 1985 32 From: Mic Mcmahan MD [...] negative. Patient will be discharged with naproxen, Emery, and Flexeril. Instructed to follow- up her primary care physician in 3-5 days if not improving. Return to the emergency department for any worsening symptoms. Disposition: To home in improved and stable condition. Impression: 1. Upper back pain. 2. Atypical chest pain. This note was generated with PWA dictation software. It may contain incorrect words, spelling, and punctuation that were not noted in review of the chart prior to signing ED Disposition - Plan for ED Patient: Chief Complaint: Back Instructions: ED Neck Back Pain General Prescriptions: Hydrocodone Bitart/Apap 5-325 [Emery 5MG-325MG] 1 tablet PO Q4H PRN PRN [...] problems, contact your Primary Care Provider. Call [facility] ([phone]) or report to the closest Emergency Room. Call 911 if necessary. 05/18/18 1815 <Electronically signed by Mic Mcmahan MD> Date Mic Mcmahan MD Cosigner Signature (If Indicated): Date CC: Chicho Wilson MD CBC W/DIFF, AUTOMATED Collected: 05/18/2018 Status: F Source: [place] 10:[address] [facility] REPOSITORY TYPE CODE TESTS RESULT OUT OF [...] Lymph 1.41 Performed By: #### L100.0100 #### [facility] [address] [facility] [place], [address] D-DIMER QUANTITATIVE Collected: 05/18/2018 Status: F Source: [place] (DVT/PE) 10:[address] [facility] REPOSITORY TYPE CODE TESTS RESULT OUT OF RANGE REFERENCE UNITS LAB L300.8000 0.27-0.49 FEU/ug/m Low D-DIMER < 0.27 QUANT Result Comment: NORMAL D-Dimer level (<0.50) indicates no DVT or PE. Performed By: #### L300.8000 #### [facility] [address] [facility] [place], [place], [address] BASIC METABOLIC Collected: 05/18/2018 Status: F Source: [place] PROFILE (BMP) 10:[address] [facility] REPOSITORY TYPE CODE TESTS RESULT OUT OF [...] 10 Performed By: #### L500.2500, L501.4010 #### [facility] [address] [place], [address] TROPONIN-I Collected: 05/18/2018 Status: F Source: [place] 10:[address] [facility] REPOSITORY TYPE CODE TESTS RESULT OUT OF RANGE REFERENCE UNITS LAB L501.4010 <0.045 ng/mL Normal < 0.015 TROPONIN-I Result Comment: TROPONIN-I EXPECTED VALUES <0.045 Negative 0.045 - 0.590 Consistent with Cardiac Damage > OR = 0.600 Critical Value Not every elevated troponin is indicative of OK. These values should be used with clinical judgement in examining the patient's clinical picture for diagnosis. To establish a diagnosis of OK versus myocardial injury, there must be a demonstrated rise and/or fall in the troponin values, in addition to ischemic symptoms, EKG changes, new regional wall motion abnormality, and/or angiographical evidence. PLEASE NOTE: REFERENCE RANGES EDITED 17 Performed By: #### L500.2500, L501.4010 #### [facility] [address] [place], [place], [address] ,SERUM,HCG QUALI. Collected: Status: F Source: [place] 05/18/2018 10:[address] [facility] REPOSITORY TYPE CODE TESTS RESULT OUT OF REFERENCE UNITS RANGE LAB L700.6700 =>Qualitative mIU/mL Normal HCG Qual < 1 triggr LAB L700.7000 0-9 Nonpreg Negative Normal HCGSQUAL NEGATIVE Performed By: #### L700.6800 #### [facility] [address] [place], [address] CHEST 1 VIEW Observed: 05/18/2018 Status: F Source: [place] (PORTABLE) 9:[address] [facility] REPOSITORY [facility] Imaging Services [address] [address] Chest 1 View (Portable) MR#: [id number] Acct: [id number] Name: TUYET DAVIDSON Rep #: [id number] : 1985 F 32 From: Aparna Zapata MD PCP: Chicho Wilson MD Status: DEP ER Study: Chest 1 View (Portable) Date of Exam: 05/18/18 Exam# [id number] Ordering Dr: Mic Mcmahan MD STUDY: X-RAY [...] CC: Chicho Wilson MD; Mic Mcmahan MD Ticket Collector: Signed PROGRESS Observed: 03/22/2018 Status: COMPLETED Source: [place] 10:[address] [facility] [place] REPOSITORY HNO ID: [id number] Author: Delmi (Regine) Older Service: (none) Author [...] CYSTOSCOPY,URETEROSCOPY,STONE REMV 2004 - ORAL SURGERY PROCEDURE Patriot Teeth Removed ALLERGIES Bactrim [Sulfamethoxazole]; Sulfa (Sulfonamide Antibiotics) MEDICATIONS fluticasone (FLONASE) 50 mcg/actuation nasal spray Use 2 Sprays in each nostril once daily. Rinse mouth after use. SACCHAROMYCES BOULARDII (PROBIOTIC, S.BOULARDII, ORAL) Take 1 tablet by mouth once daily. Eadygejb-Zp-Ten-Fe-FA ( VITAMIN) ORAL Tab Take 1 tablet [...] APRN.CNP CNOV Observed: 03/22/2018 Status: COMPLETED Source: [place] 10:40 AM [facility] REPOSITORY Office Visit (INTMWS) TUYET DAVIDSON ([id number]) 1985 F Date Time Provider Department 03/22/18 [...] CYSTOSCOPY,URETEROSCOPY,STONE REMV 2004 - ORAL SURGERY PROCEDURE Patriot Teeth Removed ALLERGIES Bactrim [Sulfamethoxazole]; Sulfa (Sulfonamide Antibiotics) MEDICATIONS fluticasone (FLONASE) 50 mcg/actuation nasal spray Use 2 Sprays in each nostril once daily. Rinse mouth after use. SACCHAROMYCES BOULARDII (PROBIOTIC, S.BOULARDII, ORAL) Take 1 tablet by mouth once daily. Ytxxtkgg-Bz-Dkx-Fe-FA ( VITAMIN) ORAL Tab Take 1 tablet [...] Date Reviewed: 03/22/2018 Reviewed by: Marlee Ricks Rug Backing Stenciler - Fully Assessed Reason for Visit: Upper back and neck pain [Other] Cmt: x 4 days-has had this before Reason For Visit History Recorded Primary Visit Diagnosis:Cervicalgia [M54.2] Order(s):CONSULT TO PHYSICAL THERAPY [9032] Order #: [id number]: 1 Prescriptions as of 03/22/2018 Sig: FLUTICASONE [...] 03/22/18 PROGRESS Observed: 01/10/2018 Status: COMPLETED Source: [place] 12:53 PM [facility] REPOS[facility] HNO ID: [id number] Author: Karina Trinidad Service: (none) Author Type: [...] CYSTOSCOPY,URETEROSCOPY,STONE REMV 2004 - ORAL SURGERY PROCEDURE Patriot Teeth Removed ALLERGIES Bactrim [Sulfamethoxazole]; Sulfa (Sulfonamide Antibiotics) MEDICATIONS SACCHAROMYCES BOULARDII (PROBIOTIC, S.BOULARDII, ORAL) Take 1 tablet by mouth once daily. Thzutajf-Fo-Rjo-Fe-FA ( VITAMIN) ORAL Tab Take 1 tablet [...] APRN.CNP CNOV Observed: 01/10/2018 Status: COMPLETED Source: [place] 12:30 PM [facility] REPOSITORY Office Visit (WSTR) TUYET DAVIDSON ([id number]) 1985 F Date Time Provider Department 01/10/18 [...] CYSTOSCOPY,URETEROSCOPY,STONE REMV 2004 - ORAL SURGERY PROCEDURE Patriot Teeth Removed ALLERGIES Bactrim [Sulfamethoxazole]; Sulfa (Sulfonamide Antibiotics) MEDICATIONS SACCHAROMYCES BOULARDII (PROBIOTIC, S.BOULARDII, ORAL) Take 1 tablet by mouth once daily. Rhfbfdra-Wr-Lpd-Fe-FA ( VITAMIN) ORAL Tab Take 1 tablet [...] 01/10/18 PROGRESS Observed: 10/12/2017 Status: COMPLETED Source: [place] 10:[address] [facility] [place] REPOSITORY HNO ID: [id number] Author: Rita (Regine) VARSHA Taylor.REGINE Service: (none) Author Type: Nurse Practitioner Type: Progress Notes Filed: 10/12/2017 11:03 AM Note Text: Subjective The history is provided by the patient. No multimedia specialist was used. HPI Tuyet Davidson is a [...] Social History Marital status: Spouse name: Leonard Davidsno Years of education: Number of children: 1 [...] congestion: brands include Abilio Med, Simply saline, [place] nasal spray, or even the generic store [...] detail warranting prompt ER evaluation. Rita Taylor APRN.RETAIL OPERATIONS SPECIALIST CNOV Observed: 10/12/2017 Status: COMPLETED Source: [place] [facility] Visit (WSTR) TUYET DAVIDSON ([id number]) 1985 F Date Time Provider Department 10/12/17 10:30 AM RITA TAYLOR (REGINE) [facility] During your visit today, we recorded the following information about you: Temperature Pulse Respiration Blood pressure 98.8 degrees 96/minute 16/minute 138/88 Weight Last Period 89.8 kg 10/02/17 Rita Taylor APRN.JÚNIOR HEADLEY 10/12/2017 11:03 AM Signed Subjective The history is provided by the patient. No multimedia specialist was used. HPI Tuyet Davidson is a [...] congestion: brands include Abilio Med, Simply saline, [place] nasal spray, or even the generic store [...] congestion: brands include Abilio Med, Simply saline, [place] nasal spray, or even the generic store [...] Thrombocytopenia. Date Reviewed: 10/12/2017 Reviewed by: Rita ([facility]) VARSHA Taylor.RETAIL OPERATIONS SPECIALIST - Fully Assessed Reason for Visit: Sinusitis [...] congestion: brands include Abilio Med, Simply saline, [place] nasal spray, or even the generic store [...] 08/15/2018 Drug Sulfa (Sulfonamide Low platelets Unknown [place] Allergy/41 Antibiotics)/[id number] Community [id number]([facility](RXNORM) [facility]) Repository 08/15/2018 Drug sulfamethoxazole/F0060 Low platelets Unknown [place] Allergy/41 02714(RXNORM) Community 8590668([facility]) Repository 08/15/2018 Drug trimethoprim/Y62329157 Low platelets Unknown [place] Allergy/41 3(RXNORM) [facility] 0153592([facility]) Repository 08/11/2014 Drug SULFA (SULFONAMIDE OTHER: SEE C Par[place] Class/4195 ANTIBIOTICS) Clinic Main [address]([facility]) Repository 06/07/2014 DRUG SULFAMETHOXAZOLE RASH [place] INGREDI/41 Clinic Main 7706103([facility]) Repository ENCOUNTERS ENCOUNTERS ADMIT/DISCHARGE ACCOUNT NUMBER ADMITTING ENCOUNTER LOCATION SOURCE CLASS 08/17/2018 [id number] Ambulatory BMSBuilding: [place] BMS.Pending sale to [facility] Repository 08/16/2018 [id number] Ambulatory BMSBuilding: [place] BMS.Pending sale to [facility] Repository 08/16/2018 [id number] Ambulatory BMSBuilding: [place] BMS.CF.[facility] Repository 08/16/2018/08/17/19 [id number] Ambulatory [address] ding:SDCRoom Repository : MS207 08/11/2018 [id number] Ambulatory [facility] ding:MRI Repository 08/11/2018/08/12/19 [id number] Ambulatory [address] Repository 08/04/2018 [id number] Ambulatory [facility] Repository 08/04/2018/08/05/19 [id number] Ambulatory [address] Repository 08/02/2018 [id number] Ambulatory [facility] ding:HPRAD Repository 08/02/2018/08/02/19 [id number] Ambulatory BMSBuilding: [address] Repository 07/28/2018 [id number] Ambulatory [facility] Repository 07/07/2018/07/11/20 [id number] Ambulatory BBuilding:DR Elliott [facility] Repository 07/05/2018/07/06/20 [id number] Ambulatory [address] Repository 06/29/2018/06/30/20 [id number] Ambulatory [address] Repository 06/15/2018/06/15/20 [id number] Emergency [address] ding:ED Repository 05/31/2018 [id number] Ambulatory [facility] ding:MRI Repository 05/24/2018/05/25/20 [id number] Ambulatory [address] Repository 05/18/2018/05/18/20 [id number] Emergency [address] ding:ED Repository 03/22/2018/03/23/20 [id number] Ambulatory [address] Repository 01/10/2018/01/13/20 [id number] Ambulatory [address] Repository 10/12/2017/10/14/19 [id number] Ambulatory [address] Repository PAYERS PAYERS ENCOUNTER GUARANTOR PAYER SUBSCRIBER SOURCE 08/17/2018 TUYET [id number] Insurance:Sandee PRECIADO: [employer]Scan KEENE Number: [id number], [place] [id number] Repository [address]3088Nqv: 330) Date:0962-87-71DB [phone] () [id number], [place] [address]ON: 08/17/2018 Secondary NOT GIVENUNK [place] Insurance:SELF PAY [facility] Number: Effective Repository Date:2018-08-17 08/16/2018 TUYET Toro Primary VALLE A [place] [id number] Insurance:CIGNAPolicy CURT[place]DOB[facility] [place]: [id number], [place] [id number] Repository [address]Xtq: (330) Date:1543-45-83HT [phone] () 777274IDOJIIGIQBL, [place] [address]DI: 08/16/2018 Secondary NOT GIVENUNK [place] Insurance:SELF PAY [facility] Number: Effective Repository Date:2018-08-16 08/16/2018 TUYET Toro Primary VALLE A [place] [id number] Insurance:CIGNAPolicy CURTISDOB: [facility] [place] Number: [id number], [place] [id number] Repository [address]Xlu: (330) Date:8337-76-97JX [phone] () 472900XPLNZXQQHGI, [place] [address]HA: 08/16/2018 Secondary NOT GIVENUNK [place] Insurance:SELF PAY [facility] Number: Effective Repository Date:2018-08-16 08/16/2018 TUYET Toro Primary VALLE A [place] [id number] Insurance:CIGNAPolicy CURTISDOB: [facility] [place] Number: [id number], [place] [id number] Repository [address]Fwr: 330) Date:3761-75-51IV [phone] () 513683SQDAHPTTEHV, [place] [address]LD: 08/16/2018 Secondary NOT GIVENUNK [place] Insurance:SELF PAY [facility] Number: Effective Repository Date:2018-08-02 08/11/2018 TUYET Toro Primary VALLE A [place] [id number] Insurance:CIGNAPolicy CURTISDOB: [facility] [place] Number: [id number], [place] [id number] Repository [address]Cdt: (330) Date:4930-43-56SY [phone] () [id number], [place] [address]OW: 08/11/2018 Secondary NOT GIVENUNK [place] Insurance:SELF PAY [facility] Number: Effective Repository Date:2018-08-09 08/04/2018 Tuyet Toro [facility] CurtisDOB: Insurance:CignaPolicy CurtisDOB: System Number: Effective [id number] Repository [place] Date: [employer] [address]Cef: () 08/02/2018 TUYET Toro [facility] LEONARD Cam [place] [id number] Insurance:CIGNAPolicy CURTISDOB: [facility] [place] Number: [id number], [place] [id number] Repository [address]Rft: (330) Date:0573-32-11RT [phone] () [id number], [place] [address]IB: 08/02/2018 Secondary NOT GIVENUNK [place] Insurance:SELF PAY [facility] Number: Effective Repository Date:2018-08-02 08/02/2018 TUYET Toro [facility] LEONARD Cam [place] [id number] Insurance:CIGNAPolicy CURTISDOB: [facility] ROSEADDY Number: [id number], [place] [id number] Repository [address]Ldf: (330) Date:1371-90-54RP [phone] () [id number], [place] [address]YZ: 08/02/2018 Secondary NOT GIVENUNK [place] Insurance:SELF PAY [facility] Number: Effective Repository Date:2018-06-28 07/28/2018 Tuyet [facility] Tuyet Toro [facility] CurtisDOB: Insurance:CignaPolicy CurtisDOB: System Number: Effective [id number] Repository [place] Date: [employer], [place] [address]Bbz: () 07/07/2018 [facility] CURTISDOB: Insurance:DAISHA DAVIDSONB: [facility] [id number] Number: [id number] Repository [place] [id number] [address] [place] [address], Date:2018-07-07 - [place], [place] [address]Kpw: [id number] [place] [address]Xby: Name:DEFENSIVE FIRE CONTROL SYSTEMS OPERATOR BOX ()Tel: [phone], [place] () (WP) [phone]: () [phone] 06/15/2018 TUYET Cortez [facility] LEONARD A [place] [id number] Insurance:Sandee DAVIDSONB: [facility] Number: [id number], [place] [id number] Repository [address]Buj: 330) Date:2248-05-85RS [phone] () [id number], [place] [address]KD: 06/15/2018 Secondary NOT GIVENUNK [place] Insurance:SELF PAY [facility] Number: Effective Repository Date:2018-06-15 05/31/2018 [facility] [place] A [place] [id number] Insurance:Sandee DavidsonDOB: [facility] [place] Number: [id number], [place] [id number] Repository [address]Zre: 330) Date:1292-79-46CK [phone] () 573402DWAOLGNHZCQ, [place] [address]TP: 05/31/2018 Secondary NOT GIVENUNK [place] Insurance:SELF PAY [facility] Number: Effective Repository Date:2018-05-24 05/18/2018 [facility] [place] A [place] [id number] Insurance:CIGCamden DavidsonDOB: [facility] [place] Number: [id number], [place] [id number] Repository [address]Euv: (330) Date:4410-32-03LN [phone] () [id number], [place] [address]XS: 05/18/2018 Secondary NOT GIVENUNK [place] Insurance:SELF PAY [facility] Number: Effective Repository Date:2018-05-18
== END 2018-08-17 11:48 | disposition home or self-care (01) ==
LOC: SDC 06:25 → AC 06:25 → MS2 15:25
PROVIDERS: Anesthesiology; Family Provider Family Medicine; PCP Family Medicine; Referring Provider Orthopaedic Surgery; Visit Provider Student in an Organized Health Care Education/Training Program
PROC: (CPT 22856; principal; 2018-08-16 07:30)
DX: M50.123 Cervical disc disorder at C6-C7 level with radiculopathy (principal); I10 Essential (primary) hypertension; Z98.1 Arthrodesis status; G89.18 Other acute postprocedural pain
CPT/HCPCS: 63020; 36415; 72040; 76000; 80053; 81002; 81025; 85025; 85610; 85730; 86850; 86900; 87077; 87081; J7050; J7120; A4216; J2405

== ENCOUNTER → 2018-10-18 08:06 | Outpatient (CLI) | payer OTHER, SELFPAY ==
[2018-09-06 12:48] VITALS: BMI 33.9
--- NOTE | 2018-10-18 08:08 | RAD_ITS ---
HISTORY: post op EXAM/TECHNIQUE: XR Spine Cervical 2 or 3 Views: COMPARISON: 08/16/18 radiographs. FINDINGS: # of images incl. paperwork: 2 No fracture or dislocation or osseous destruction. Alignment anatomic. Status post C6-7 discectomy with spacer device in place, unchanged. No acute findings in the soft tissues. RAD/Cerv Spine 2 or 3 Views IMPRESSION: Postsurgical changes C6-7. No evidence of complication. at 1436 Reported and signed by: Enrique Lee MD Electronically Signed: Enrique Lee, at 14:34 EDT Tel , Service support ,
== END ==
PROVIDERS: Family Provider Family Medicine; PCP Family Medicine; Referring Provider Orthopaedic Surgery; Visit Provider Orthopaedic Surgery
DX: M54.12 Radiculopathy, cervical region (principal)
CPT/HCPCS: 72040

== ENCOUNTER 2018-10-28 10:30 | Outpatient (RCR) | payer OTHER, SELFPAY ==
[2018-10-18 08:18] VITALS: BMI 33.9
--- NOTE | 2018-10-25 08:54 | HP.PTEVAL ---
Patient's Visit Information TUYET PHELAN is a 33 year old F referred to Physical Therapy by Pam Rodriguez MD with a diagnosis of C6-C7 diskectomy and decompression wtih arthroplasty 08-16-18. Date of Evaluation: 10/25/18 Physical Therapist: SANDY Link - Visit Plan Frequency: 2x /Week Duration: 6 Weeks Plan: 2X/ week for 4 weeks for PROM L arm and shoulder, L tricep, bicep, scapular and RC strength on the L as well as postural exercises. Keep an eye on c-spine AROM with HEP - Subjective Findings: She has C6-C7 diskectomy and decompression with arthroplasty on 08-16-18. Pt does not have much pain and has stiffness when she sleeps. She lost all the muscle down L arm along the backside of the arm. She has trouble with stretching L arm acoss the body she gets cramps in the pec area as well. She is not waking up in pain in the night, it is just slight discomfort. Sometimes she has trouble finding a comfortable position. She sees the Dr again next month (December 06). She is R handed. She went back to work last week. 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 - Pain Neck pain Pain Intensity (Out of 10): 1 L arm pain Pain Intensity (Out of 10): 0 - Objective C-spine AROM: Flexion 100&, Rot B 80%, SB B 80%, ext 80%. Database Security Expert strength (R handed) R hand 45# and L hand 23#. UE MMT: R shld flex 4+/5 and L 4/5, R shld abd 4+/5 and L 4/5, R tricep 4+/5 and L 4-/5, Bicep B 4+/5, R ER 4+/5 and L 4-/5, B IR 4+/5, B wrist flex/ext 4+/5. Bicep reflex R 2+/3 and L 1+/3. Tightness at end range flexion and ABduction PROM - Goals Goal 1:: I HEP Goal Time Frame: 4-6 Weeks Goal 2:: Increase L tricep sttrength by 1/2 muscle grade to 4/5 to improve function Goal Time Frame: 4-6 Weeks Goal 3:: Be able to sunjectivly report less stiffness especially when lying down at night Goal Time Frame: 4-6 Weeks - Rehabilitation Potential Rehabilitation Potential: Good - Anticipated Interventions Patient/Client Instruction: Educate patient on: Condition, Plan of Care For the Purpose of:: To increase ROM, To improve nutrient delivery to tissue, To improve muscle performance and motor function, To improve ability to perform ADL's, To increase tolerance to activity/condition/position, To improve ability of physical actions for home/community/work/leisure Therapeutic Exercise to Include: Strength training, Postural training, Flexibilty training, Passive ROM, Active ROM, Scapular Strength/Stabilization For the Purpose of:: To increase ROM, To improve nutrient delivery to tissue, To improve muscle performance and motor function, To improve ability to perform ADL's, To improve ability of physical actions for home/community/work/leisure, To improve health of tissue Manual Therapy Techniques to Include: Passive ROM For the Purpose of:: To increase ROM Thank you for the opportunity to evaluate your patient. For Medicare and Medicare HMO plans, please review the plan of care and approve it. It will need to be FAXED BACK to us at [phone] for Medicare purposes. For Medicare only, by signing this I certify the plan of care. Please let me know if there are questions or concerns regarding this plan of care. Physician Signature: Date:
--- NOTE | 2018-11-11 08:01 | HP.PT.NRP ---
HP - Discharge Summary (1) - Patient Information TUYET PHELAN was seen in my office for initial evaluation on 10/25/18. The following Plan of Care was established for this patient: Initial Frequency: 2x /Week Initial Duration: 6 Weeks - Anticipated Interventions Patient/Client Instruction: Educate patient on: Condition, Plan of Care For the Purpose of:: To increase ROM, To improve nutrient delivery to tissue, To improve muscle performance and motor function, To improve ability to perform ADL's, To increase tolerance to activity/condition/position, To improve ability of physical actions for home/community/work/leisure Therapeutic Exercise to Include: Strength training, Postural training, Flexibilty training, Passive ROM, Active ROM, Scapular Strength/Stabilization For the Purpose of:: To increase ROM, To improve nutrient delivery to tissue, To improve muscle performance and motor function, To improve ability to perform ADL's, To improve ability of physical actions for home/community/work/leisure, To improve health of tissue Manual Therapy Techniques to Include: Passive ROM For the Purpose of:: To increase ROM This patient was last seen in our office 10/28/18. Pertinent comments regarding their Physical therapy will appear below: [facility] PT. Pt says that HEP is helping alot. At this point I will be discontinuing this patient from physical therapy. I would be happy to see this patient again in the future if found appropriate by the physician. Thank you! Jacqui Hawkins, MPT
== END 2018-10-28 19:00 | disposition home or self-care (01) ==
LOC: PT 10:30
PROVIDERS: Family Provider Family Medicine; PCP Family Medicine; Visit Provider Orthopaedic Surgery
DX: Z98.890 Other specified postprocedural states (principal)
CPT/HCPCS: 97110; 97161

== ENCOUNTER 2018-10-30 17:25 | Emergency (ER) | payer OTHER, SELFPAY ==
[2018-10-28 11:05] VITALS: BMI 33.9
[2018-10-30 17:26] VITALS: BP 160/103; PULSE 96; RESP 16; TEMP 36.3; O2SAT 97; BMI 34.8
[2018-10-30 17:29] VITALS: BP 160/103; PULSE 96; RESP 16; TEMP 36.3; O2SAT 97
[2018-10-30 17:35] VITALS: BP 169/110; PULSE 89; RESP 14; O2SAT 98
[2018-10-30 18:56] LABS: Anion Gap 8 (5-15); BUN 14 mg/dL (7-18); BUN/Creat Ratio 16.2 RATIO (10-20); Calcium,Total 8.4 mg/dL (8.5-10.1); Chloride 107 mmol/L (98-107); Creatinine, Serum 0.87 mg/dL (0.55-1.02); EST Glomerular Filtration Rate 79 mL/min (>60); Est Glom Filt Rate - Afr Amer 96 mL/min (>60); Estimated Creatinine Clearance 77.94 ml/min; Glucose 96 mg/dL (74-106); Potassium 3.5 mmol/L (3.5-5.1); Sodium Level 141 mmol/L (136-145)
[2018-10-30 19:25] LABS: Absolute Lymphocyte Count 1.28 X10^3/ul (0.83-4.51); Absolute Neutrophil Count 2.8 X10^3/uL (2.0-7.7); Basophil# 0.05 X10^3/uL; Eosinophil# 0.16 X10^3/uL; Eosinophils% 3.3 % (0-5); Hematocrit 31.4 % (37-47); Lymphocyte # 1.28 X10^3/ul (4.0); Lymphocyte % 26.6 % (19-41); Mean Corp Hgb Conc 31.8 g/gl (32-36); Mean Corpuscular Volume 75.5 fL (81-99); Mean Platelet Vol. 8.5 fl (6.2-12.0); Monocyte# 0.48 X10^3/uL; Neutrophil # 2.83 X10^3/uL (2.7-7.7); Neutrophil % 58.9 % (47-70); Platelet Count 249 K/mm3 (150-450); RBC Distribution Width CV 14.7 % (11.6-14.6); RBC Distribution Width SD 40.1 fl (35.1-43.9); Red Blood Count 4.16 M/mm3 (4.2-5.4); White Blood Count 4.8 K/mm3 (4.4-11.0)
[2018-10-30 19:33] LABS: POSITIVE COUNT NO; POSITIVE DIFFERENTIAL NO; POSITIVE MORPHOLOGY NO
--- NOTE | 2018-10-30 19:41 | ED.DCSUM_ITS ---
- ER Visit Summary Date of Service: 10/30/18 Chief Complaint: Eye floaters History of Present Illness: The patient is a 33 F who states that today she felt that she had floaters in the right eye which have resolved. 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 She denies any bleeding. She states she is recently started on Augmentin and Tessalon Perles for bronchitis. Physical Examination: Afebrile vital signs stable Gen: Well-nourished well-developed Head: Normocephalic atraumatic Eyes: Perrl EOMI funduscopic exam I do not reveal any evidence of a retinal detachment ENT: TMs clear no rhinorrhea moist mucous membranes Neck: Supple no lymphadenopathy no JVD nontender CVS: Regular rate rhythm no murmurs normal S1-S2 Respiratory: No distress clear to auscultation bilaterally chest nontender Abdomen: Soft nontender nondistended normal bowel sounds no masses Back: Nontender Extremity: Nontender no edema Skin: Normal color no rash Neuro: alert orientated ?3 CN II-XII intact normal strength sensation reflexes gait cerebellar Psych: Normal affect normal mood Test Results: CBC and BMP showed hemoglobin of 10 which is chronic for her and a platelet of 249. Emergency Department Course and Treatment: Patient will be discharged home with supportive care return if worsening or concerns. Impression: 1. Right eye floaters. This note was generated with [employer], IP dictation software. It may contain incorrect words, spelling, and punctuation that were not noted in review of the chart prior to signing ED Disposition - Plan for ED Patient: Disposition: Home or Assisted Living Instructions: What Are Flashes and Floaters?, Treating Flashes and Floaters Referrals: Chicho Keane MD [Primary Care Provider] - As Needed
[2018-10-30 19:49] VITALS: BP 132/81; PULSE 88; RESP 15; RESP 16; O2SAT 100; O2SAT 99
[2018-10-30 19:51] VITALS: TEMP 36.9
== END 2018-10-30 19:52 | disposition home or self-care (01) ==
PROVIDERS: Emergency Provider Emergency Medicine; Family Provider Family Medicine; PCP Family Medicine
DX: H43.391 Other vitreous opacities, right eye (principal)
CPT/HCPCS: 80048; 85025; 99283

== ENCOUNTER → 2018-12-20 08:05 | Outpatient (CLI) | payer OTHER, SELFPAY ==
--- NOTE | 2018-12-20 08:06 | RAD_ITS ---
STUDY: X-RAY - CERVICAL SPINE REASON FOR EXAM: Female, 33 years old. Postop TECHNIQUE: 2 view(s) of the cervical spine were obtained. COMPARISON: 10/18/2018 FINDINGS: There are stable post operative changes from a discectomy at C6/C7 with a disc spacer in place. Alignment is satisfactory. There is no evidence of fracture or dislocation in the cervical spine. The dens is intact. The prevertebral soft tissues are unremarkable. There is no radiodense foreign body. RAD/Cerv Spine 2 or 3 Views IMPRESSION: Stable postoperative changes with satisfactory alignment. No fracture or dislocation in the cervical spine. Electronically Signed: Ike Powers, at 16:50 EDT Tel , Service support ,
== END ==
PROVIDERS: Family Provider Family Medicine; PCP Family Medicine; Referring Provider Orthopaedic Surgery; Visit Provider Orthopaedic Surgery
DX: M54.2 Cervicalgia (principal)
CPT/HCPCS: 72040

== ENCOUNTER → 2019-10-03 | Outpatient (CLI) | payer OTHER, SELFPAY ==
[2018-12-20 08:15] VITALS: BMI 34.8
--- NOTE | 2019-10-03 08:45 | RAD_ITS ---
STUDY: X-RAY - CERVICAL SPINE REASON FOR EXAM: Female, 34 years old. PAIN TECHNIQUE: 2 view(s) of the cervical spine were obtained on 4 films, including lateral flexion and extension views. COMPARISON: 2 views of the cervical spine December 20, 2018. FINDINGS: Normal anterior atlantoaxial articulation. Normal odontoid process. Normal cervical lordosis. There is stable mild anterior multi-level endplate endplate lipping/spurring. Prior discectomy with placement of an articulated prosthesis C6-7 again noted. Borderline narrowing C4-5 and C5-6. Normal disc space heights. Normal visualized facet articulations. There is moderate range of motion on flexion and extension. No instability is demonstrated. The prevertebral soft tissue structures are unremarkable. There is no demonstrated osseous destructive process or acute fracture of the cervical spine. RAD/Cerv Spine 2 or 3 Views IMPRESSION: 1. Stable mild degenerative changes of the visualized cervical spine. 2. Prior discectomy with placement of articulating prosthesis at C6-7. There is moderate range of motion on flexion and extension without instability. Electronically Signed: Matthew Pérez MD at 17:12 EDT , Service support ,
== END | disposition home or self-care (01) ==
LOC: HPRAD 08:44
PROVIDERS: PCP Family Medicine; Referring Provider Orthopaedic Surgery; Visit Provider Orthopaedic Surgery
DX: M54.12 Radiculopathy, cervical region (principal)
CPT/HCPCS: 72040